=== PATIENT | female | born 1980 | race Caucasian/White ===

== ENCOUNTER 2020-03-04 13:11 | Emergency (ER) | payer MEDICAID, SELFPAY ==
--- NOTE | ~2020-03-04 | XR_ITS ---
EXAMINATION: XR chest 2V EXAM DATE: 03/04/2020 13:52 INDICATION: Syncope, tachycardia, chest heaviness. TECHNIQUE: Frontal and lateral projections of the chest obtained and reviewed. Comparison is made to prior examination from 01/07/2019. FINDINGS: Moderate hyperinflation. The lungs are clear. There are no pleural effusions. The cardio mediastinal silhouette is within normal limits. There is no pneumothorax suspected. The bones and s oft tissues are unremarkable. IMPRESSION: 1. No acute cardiopulmonary findings. 2. Hyperinflation. Reviewed, dictated and finalized at location A.
--- NOTE | ~2020-03-04 | CT_ITS ---
EXAMINATION: CT brain wo con, CT cervical spine wo con EXAM DATE: 03/04/2020 14:36 INDICATION: 2 falls over the past few days. Head injury. TECHNIQUE: Spiral CT of the head was performed without contrast. Axial, coronal and sagittal images were reviewed. Spiral CT of the cervical spine was performed without contrast. Axial images were rev iewed. Coronal and sagittal reformatted images were also reviewed. The dose-length product (DLP) fo r this examination was 605.33 (accession [id number]), 254.07 (accession [id number]) mGy-cm. The exposure was tailored according to patient size, and iterative reconstruction (ASIR) was used as additional dose reduction technique. There is no prior study for comparison. FINDINGS: HEAD CT: There is no acute intraparenchymal hemorrhage. No evidence of intraparenchymal brain mass l esion. No evidence of acute infarction. There is no mass effect or midline shift. There is no obstru ctive hydrocephalus suspected. There are no extra-axial collections. There are no acute calvarial f ractures. The orbits are unremarkable. Soft tissue is unremarkable. Small amount of left maxillary sinus fluid. CERVICAL CT: There is no evidence of acute cervical fracture. The odontoid process is intact. Pre- dens space is normal. Prevertebral soft tissue is normal. There are no soft tissue abnormalities id entified. There is no disc space widening or traumatic vertebral body subluxation suspected. At C5- 6 there is mild disc disease. Only mild cervical arthropathy. A detailed level by level evaluation o f spondylosis can be added as addendum if requested. IMPRESSION: 1. No acute intracranial findings or cervical fracture. Reviewed, dictated and finalized at location A. IMPRESSION: 1. No acute intracranial findings or cervical fracture.
[2020-03-04 13:22] VITALS: BP 132/82; PULSE 90; RESP 16; TEMP 36.8; O2SAT 98
--- NOTE | 2020-03-04 13:27 | ECG_ITS ---
Measurements Intervals [place] Rate: 84 P: 55 MT: 108 QRS: 64 QRSD: 84 T: 64 QT: 372 QTc: 441 Interpretive Statements SINUS RHYTHM WITH SHORT MT INTERVAL INCOMPLETE RIGHT BUNDLE BRANCH BLOCK BORDERLINE ST ABNORMALITY- ANTEROLAT/INF LEADS BORDERLINE ECG Electronically Signed On 03-04-2020 14:02:07 CDT by Byron Navarrete D.O.
--- NOTE | 2020-03-04 13:41 | PC.NURSE ---
PT TO XRAY AT THIS TIME WILL MEDICATE PER PROVIDER ORDER UPON RETURN.
[2020-03-04 13:51] VITALS: BP 119/85; PULSE 84; RESP 18; O2SAT 100
--- NOTE | 2020-03-04 13:51 | PC.NURSE ---
TENISHA AT BEDSIDE.
[2020-03-04 14:00] LABS: Basophils Percent Auto 0.5 % (0.2-1.2); Eosinophils Percent Auto 0.3 % (0-4.4); Hematocrit 39.9 % (37.0-47.0); Hemoglobin 13.7 g/dL (12.0-15.0); Immature Granulocyte Absolute 0.02 K/mm3 (0.00-0.031); Immature Granulocyte Percent A 0.3 % (0-0.5); Lymphocytes Absolute Auto 2.11 K/mm3 (0.9-3.2); Mean Corpuscular HGB Conc 34.3 g/dl (32-36); Mean Corpuscular Hemoglobin 31.8 pg (26-34); Mean Corpuscular Volume 92.6 fl (80-100); Mean Platelet Volume 10.9 fl (7.4-10.4); Monocytes Absolute Auto 0.3 K/mm3 (0.1-0.6); Monocytes Percent Auto 4.8 % (2.6-8.5); Neutrophils Absolute Auto 4.1 K/mm3 (1.3-6.7); Neutrophils Percent Auto 62.1 % (45.5-73.1); Platelet Count Result 213 k/mm3 (150-375); Red Blood Count 4.31 M/mm3 (4.2-5.4); Red Cell Distribution Width 12.2 % (11.5-14.5); White Blood Count 6.6 K/mm3 (4.5-10.0)
--- NOTE | 2020-03-04 14:00 | PC.NURSE ---
PER MICHELLE STEVEN, PT DOES NOT NEED 324 ASA.
[2020-03-04 14:04] LABS: Add Urine Microscopic? YES; Appearance Urine Clear (Clear); Bacteria Urine 1+ /hpf; Bilirubin Urine Negative (Negative); Blood Urine Negative (Negative); Color Urine Straw (Yellow); Glucose Urine UA Negative (Negative); Ketones Urine 1+ mg/dL (Negative); Leukocyte Esterase Ur Negative LEU/UL (Negative); Mucus Urine Rare /lpf; Nitrate Urine Negative (Negative); Protein Urine Negative (Negative); RBC Urine 0-2 /hpf (0-2); Specific Grav Ur 1.009 (1.001-1.035); Squamous Epithelial Cell Urine Moderate /hpf (Few); Urobilinogen Urine Negative mg/dL (<2.0); WBC Urine 0-3 /hpf
[2020-03-04 14:09] LABS: INR 1.1; Prothrombin Time 13.5 Seconds (11.1-14.7)
--- NOTE | 2020-03-04 14:13 | ED.ARRPALP ---
HPI - Arrhythmia/Palpitations General Chief Complaint: Arrhythmia/Palpitations Stated Complaint: heart racing Time Seen by Provider: 03/04/20 13:28 Source: patient Mode of arrival: ambulatory Limitations: no limitations History of Present Illness HPI narrative: Patient is 40 years old white female presents with intermittent bounding heartbeats, lightheadedness and falling since started trazodone 48 hours ago. Patient had history of intermittent bounding heartbeats with palpitations since June 2019, but will see her doctor because of the COVID-19, patient also have long history of insomnia, used trazodone one time in the past, over the last 48 hours she tried again, patient had 2 falls since last one was in the bathroom today struck her head on the wall with neck pain. Patient had history of chronic back pain, neck pain, maxed on her cortisone injection. Currently patient complaining of generalized back pain. Denying any chest pain, shortness of breath or palpitation. History of depression Related Data Home Medications Medication Instructions Recorded Confirmed bupropion HCl mg PO 03/04/20 tramadol mg 03/04/20 03/04/20 Allergies Allergy/AdvReac Type Severity Reaction Status Date / Time codeine Allergy Severe DIFFICULTY Verified 03/04/20 13:25 BREATHING cyclobenzaprine Allergy Severe DIFFICULTY Verified 03/04/20 13:25 BREATHING morphine Allergy Severe BRADYCARDIA Verified 03/04/20 13:25 Sulfa (Sulfonamide Allergy Severe DIFFICULTY Verified 03/04/20 13:25 Antibiotics) BREATHING ciprofloxacin AdvReac Intermediate MUSCLE Verified 03/04/20 13:25 CRAMPS, HALLUCINATIONS HYDROCODONE BIT Allergy Severe RASH Uncoded 12/12/19 08:02 MEPERIDINE HCL Allergy Severe DIFFICULTY Uncoded 12/12/19 08:02 BREATHING Review of Systems Review of Systems: Narrative: CONSTITUTIONAL: Denies fever, chills, or sweats. EYES: Denies visual changes, redness, or discharge. ENT: Denies rhinorrhea, congestion, sore throat, or otalgia. CARDIOVASCULAR: Denies chest pain, palpitations, or edema. RESPIRATORY: Denies cough or dyspnea. GASTROINTESTINAL: Denies abdominal pain, nausea, vomiting, or diarrhea. GENITOURINARY: Denies dysuria or hematuria. SKIN: Denies rash or itching. MUSCULOSKELETAL: Denies back pain, joint pain, or myalgia. NEUROLOGIC: Denies headache, numbness, or weakness. PSYCHIATRIC: Denies anxiety or depression. [facility] Past Medical History Medical History (Updated 03/04/20 @ 15:08 by Edgar Sierra MD) Depression Social History Social History (Updated 03/04/20 @ 15:00 by Edgar Sierra MD) Social History: Patient denies alcohol intake, uses marijuana for medical treatment, and does smoke. Smoking status: Current every day smoker Alcohol intake: current Gender identity (if verbalized by the patient): Female Exam Narrative: Exam Narrative: General appearance: Well-developed, well-nourished Skin: Normal color Head: Normocephalic, nontraumatic Eyes: Clear conjunctiva ENT: Oropharynx normal, ears normal, nose normal Neck: Supple, nontender Chest and respiratory: Airway patent, no respiratory distress, no accessory muscle use Heart: Regular rate/rhythm Abdomen: Soft, nontender, no organomegaly, quiet bowel sounds Vascular: Normal peripheral pulses, normal capillary refill. Musculoskeletal: Diffuse tenderness mainly cervical spine posteriorly, thoracic spine and lumbar spine. No bruises, no swelling or rash. 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
[2020-03-04 14:16] LABS: Anion Gap 11 mmol/L (8-16); Blood Urea Nitrogen 7 mg/dL (7-17); Calcium 9.8 mg/dL (8.4-10.2); Carbon Dioxide 27 mmol/L (22-30); Chloride 106 mmol/L (98-107); Estimated CRCL calculation 112 ml/min; Estimated Glomerular Filt Rate > 60; Glucose 93 mg/dL (65-105); Potassium 3.5 mmol/L (3.4-5.0); Sodium 144 mmol/L (137-145)
[2020-03-04] MEDS: ONDANSETRON INJ 4 MG/2 ML VIAL IV PUSH (14:18)
[2020-03-04] MEDS: HYDROmorphone HCL INJ (*CRX) 1 MG/ML SYR 0.5 MG IV PUSH (14:18)
[2020-03-04 14:28] LABS: Troponin I < 0.012 ng/mL (0.000-0.034)
[2020-03-04 15:22] VITALS: BP 108/51; PULSE 78; RESP 18; O2SAT 100
== END 2020-03-04 15:23 | disposition home or self-care (01) ==
PROVIDERS: Emergency Medicine; Emergency Provider Emergency Medicine; PCP Family Medicine
DX: R00.2 Palpitations (principal); G47.00 Insomnia, unspecified; M54.6 Pain in thoracic spine; F32.9 Major depressive disorder, single episode, unspecified; F17.200 Nicotine dependence, unspecified, uncomplicated; G89.29 Other chronic pain; I45.10 Unspecified right bundle-branch block; R94.31 Abnormal electrocardiogram [ECG] [EKG]
CPT/HCPCS: 36415; 70450; 71046; 72125; 80048; 81001; 84484; 85025; 85610; 85730; 93005; 96374; 96375; 99284; J1170; J2405

== ENCOUNTER 2022-10-16 09:28 | Emergency (ER) | payer MEDICARE, MEDICAID, SELFPAY ==
--- NOTE | ~2022-10-16 | XR_ITS ---
XR knee LT 3V 10/16/2022 10:24 INDICATION: Left knee pain PROCEDURE: 3 views left knee COMPARISON: No prior studies for comparison. FINDINGS: Fracture, dislocation or subluxation is not identified. The soft tissues appear within norm al limits. No foreign bodies are identified. IMPRESSION: 1: NO ACUTE BONE OR JOINT ABNORMALITY IDENTIFIED. Reviewed, dictated and finalized at location B.
--- NOTE | ~2022-10-16 | XR_ITS ---
XR hip LT min 2V 10/16/2022 10:24 Indication: Left hip pain Procedure: 2 views left hip Comparison: No prior studies for comparison. Findings: There is anatomic alignment. No fracture, subluxation or dislocation. No significant soft t issue abnormality. No foreign bodies. Impression: 1: No acute bone or joint abnormality. Reviewed, dictated and finalized at location B. Impression: 1: No acute bone or joint abnormality.
[2022-10-16 09:42] VITALS: BP 108/65; PULSE 64; RESP 18; TEMP 36.8; O2SAT 100
--- NOTE | 2022-10-16 10:01 | ED.EXTPRO ---
HPI - Extremity Problem General Chief complaint: Extremity Problem,Nontraumatic Stated complaint: joint hypermobility Time Seen by Provider: 10/16/22 09:35 History of Present Illness HPI Narrative: Patient is a 42-year-old female here due to multiple medical complaints. Patient states that over the past year she has noticed laxity in her joints. She states that she has chronic popping and clicking in her hips, knees and ankles, noticed particularly when she walks. She has seen her primary care doctor for this issue who has referred her to an orthopedist but at the orthopedist visit he believed it was more of a rheumatologic issue. She has not yet seen a auto parts clerk. She presents today due to concerns about ligamentous injury due to frequent dislocations, particularly in her left knee and hip. She has been able to walk. She has not taken any medicine for pain today. No numbness or tingling. Related Data Home Medications Medication Instructions Recorded Confirmed bupropion HCl 150 mg 24 hr tablet, mg PO 03/04/20 extended release tramadol 50 mg tablet mg 03/04/20 03/04/20 Allergies Allergy/AdvReac Type Severity Reaction Status Date / Time codeine Allergy Severe DIFFICULTY Verified 10/16/22 09:47 BREATHING cyclobenzaprine Allergy Severe DIFFICULTY Verified 10/16/22 09:47 BREATHING morphine Allergy Severe BRADYCARDIA Verified 10/16/22 09:47 Sulfa (Sulfonamide Allergy Severe DIFFICULTY Verified 10/16/22 09:47 Antibiotics) BREATHING ciprofloxacin AdvReac Intermediate MUSCLE Verified 10/16/22 09:47 CRAMPS, HALLUCINATIONS HYDROCODONE BIT Allergy Severe RASH Uncoded 10/16/22 09:47 MEPERIDINE HCL Allergy Severe DIFFICULTY Uncoded 10/16/22 09:47 BREATHING Review of Systems Review of Systems: Gen.: Denies fevers or chills Eyes: Denies eye pain or visual change ENT: Denies congestion Respiratory: Denies shortness of breath or cough CV: Denies chest pain or palpitations GI: Denies abdominal pain nausea, emesis or diarrhea denies burning, urgency, frequency or hematuria Musculoskeletal: Reports ligamentous laxity and chronic joint pain Neuro: Denies numbness, tingling, weakness or focal weakness Skin: Denies rash Except as documented, all other systems reviewed and negative PMFSH Past Medical History Medical History Depression Social History Social History (System 10/21/21 @ 15:47 by Jose Mckinney) Social History: Patient denies alcohol intake, uses marijuana for medical treatment, and does smoke. Smoking status: Current every day smoker Alcohol intake: current Gender identity (if verbalized by the patient): Female Exam Narrative: APPEARANCE: Well appearing, no pain in distress, well-nourished. Head: Normocephalic and atraumatic. EYES: PERRLA/EOMI, conjunctivae clear NOSE: No nasal drainage EARS: External ear normal in appearance THROAT: Oropharynx is clear. Mucous membranes are moist. NECK: Supple. No adenopathy, no masses. RESPIRATORY: Airway patent, respirations nonlabored. Clear to auscultation bilaterally, no rales, rhonchi, wheezing. CARDIOVASCULAR: 2+ DP and PT pulses bilaterally. Regular rate and rhythm without murmurs, rubs, or gallops. ABDOMINAL: Normoactive bowel sounds. Soft, nontender, nondistended. No rebound tenderness or guarding. MUSCULOSKELETAL: There is crepitus with range of motion of the knees and ankles. No bony tenderness to palpation. Extremities are warm and well-perfused. Moves all extremities well. No edema. NEURO: Normal speech. No focal neurologic deficits. SKIN: Skin is warm and dry. No rashes. PSYCHIATRIC: Normal affect/mood. Course Vital Signs Vital signs: Vital Signs Temperature 98.2 F 10/16/22 09:42 Pulse Rate 64 10/16/22 09:42 Respiratory Rate 18 10/16/22 09:42 Blood Pressure 108/65 10/16/22 09:42 Pulse Oximetry 100 10/16/22 09:42 T
[2022-10-16] MEDS: KETOROLAC 30 MG/ML VIAL (*BKC) IM (10:02)
[2022-10-16 10:44] VITALS: BP 109/75; PULSE 57; RESP 18; O2SAT 100
== END 2022-10-16 10:45 | disposition home or self-care (01) ==
LOC: ANHED 10:31
PROVIDERS: Emergency Provider Physician Assistant; PCP Family Medicine
DX: M25.20 Flail joint, unspecified joint (principal); F17.210 Nicotine dependence, cigarettes, uncomplicated; F32.A Depression, unspecified
CPT/HCPCS: 73502; 73562; 96372; 99284; J1885

== ENCOUNTER 2023-05-23 06:42 | Emergency (ER) | payer OTHER, SELFPAY ==
[2023-05-23 06:44] VITALS: BP 133/74; PULSE 98; RESP 16; TEMP 36.6; O2SAT 100
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
[2023-05-23 07:52] LABS: Basophils Percent Auto 0.4 % (0.2-1.2); Eosinophils Absolute Auto 0.2 K/mm3 (0-0.3); Eosinophils Percent Auto 4.8 % (0-4.4); Hematocrit 39.6 % (37.0-47.0); Hemoglobin 12.9 g/dL (12.0-15.0); Immature Granulocyte Absolute 0.01 K/mm3 (0.00-0.031); Immature Granulocyte Percent A 0.2 % (0-0.5); Lymphocytes Absolute Auto 1.76 K/mm3 (0.9-3.2); Lymphocytes Percent Auto 38.1 % (18.3-44.2); Mean Corpuscular HGB Conc 32.6 g/dl (32-36); Mean Corpuscular Hemoglobin 31.2 pg (26-34); Mean Corpuscular Volume 95.9 fl (80-100); Mean Platelet Volume 10.9 fl (7.4-10.4); Monocytes Absolute Auto 0.3 K/mm3 (0.1-0.6); Monocytes Percent Auto 5.6 % (2.6-8.5); Neutrophils Absolute Auto 2.4 K/mm3 (1.3-6.7); Neutrophils Percent Auto 50.9 % (45.5-73.1); Platelet Count Result 165 k/mm3 (150-375); Red Blood Count 4.13 M/mm3 (4.2-5.4); Red Cell Distribution Width 12.7 % (11.5-14.5); White Blood Count 4.6 K/mm3 (4.5-10.0)
[2023-05-23] MEDS: LACTATED RINGERS 1,000 ML 999 ML (07:59)
[2023-05-23 08:08] LABS: Alanine Aminotransferase 15 U/L (6-35); Albumin Level 4.5 g/dL (3.5-5.1); Alkaline Phosphatase 54 U/L (38-126); Anion Gap 7 mmol/L (8-16); Aspartate Amino Transferase 22 U/L (14-36); Bilirubin,Total 0.4 mg/dL (0.2-1.3); Blood Urea Nitrogen 8 mg/dL (7-17); Calcium 9.3 mg/dL (8.4-10.2); Carbon Dioxide 25 mmol/L (22-30); Chloride 110 mmol/L (98-107); Estimated CRCL calculation 108 ml/min; Estimated Glomerular Filt Rate > 60; Glucose 94 mg/dL (65-110); Lipase 81 U/L (23-300); Potassium 3.6 mmol/L (3.4-5.0); Sodium 142 mmol/L (137-145)
[2023-05-23] MEDS: HALOPERIDOL LACTATE 5 MG/ML VIAL 2.5 MG IV PUSH (09:00)
[2023-05-23 09:45] VITALS: BP 116/72; PULSE 79; RESP 16; O2SAT 100
== END 2023-05-23 09:45 | disposition home or self-care (01) ==
PROVIDERS: Emergency Provider Student in an Organized Health Care Education/Training Program; PCP Family Medicine
DX: H57.12 Ocular pain, left eye (principal); Q79.60 Ehlers-Danlos syndrome, unspecified; K31.84 Gastroparesis; F32.A Depression, unspecified; F17.200 Nicotine dependence, unspecified, uncomplicated
CPT/HCPCS: 36415; 80053; 81025; 83690; 85025; 96361; 96374; 99284; J1630; J7120

== ENCOUNTER 2024-02-03 11:02 | Emergency (ER) | payer MEDICARE, OTHER, SELFPAY ==
[2024-02-03 11:05] VITALS: BP 180/93; PULSE 91; RESP 20; TEMP 36.7; O2SAT 99
--- NOTE | 2024-02-03 11:18 | PC.NURSE ---
[address] activated [address] through [facility] 1112 Activated [address] [facility]. [address], [place] - en route to [place] [facility] 30-40 minutes
--- NOTE | 2024-02-03 13:01 | PC.NURSE ---
Assumed care of pt. [facility] nurses remain in room with pt
[2024-02-03] MEDS: ONDANSETRON HCL ODT 4 MG TABLET PO (14:18)
[2024-02-03] MEDS: OXYMETAZOLINE HCL 0.05% NAS 15 ML BTL (*BKC) 1 SPRAY NASAL (14:20)
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
[2024-02-03] MEDS: EMTRICITABINE-TENOFOVIR 100 MG-150 MG TABLET 2 TAB PO (17:04)
[2024-02-03] MEDS: RALTEGRAVIR 400 MG TABLET PO (17:05)
[2024-02-03] MEDS: HEPATITIS B VIRUS VACCINE 10 MCG/0.5 ML SYRINGE 20 MCG IM (17:05)
[2024-02-03 17:12] LABS: Alanine Aminotransferase 31 U/L (6-35); Alkaline Phosphatase 57 U/L (38-126); Anion Gap 8 mmol/L (4-12); Aspartate Amino Transferase 33 U/L (14-36); Bilirubin,Total 0.3 mg/dL (0.2-1.3); Blood Urea Nitrogen 7 mg/dL (7-17); Calcium 8.9 mg/dL (8.4-10.2); Carbon Dioxide 24 mmol/L (22-30); Chloride 107 mmol/L (98-107); Estimated CRCL calculation 128 ml/min; Estimated Glomerular Filt Rate > 60; Glucose 107 mg/dL (65-110); Potassium 3.7 mmol/L (3.4-5.0); Sodium 139 mmol/L (137-145)
[2024-02-03 17:52] LABS: HIV 1/2 Ab P24 Ag Result Negative (Negative)
[2024-02-03] MEDS: LIDO 1%/EPINEPHRINE 1:100,000 20 ML VIAL (18:08)
[2024-02-03] MEDS: DOXYCYCLINE HYCLATE 100 MG TABLET PO (18:08)
[2024-02-03] MEDS: TETANUS,DIPHTHERIA,AC PERTUSSIS ADULT (0.5 ML) BOOSTRIX IM (18:08)
[2024-02-03] MEDS: cefTRIAXone 1 GM VIAL 0.5 GM IM (18:08)
[2024-02-03] MEDS: metroNIDAZOLE 500 MG TABLET PO (18:08)
[2024-02-03 18:10] LABS: Hepatitis B Surface Antigen Negative (Negative)
[2024-02-03 18:14] VITALS: BP 118/61; PULSE 89; RESP 18; TEMP 36.6; O2SAT 100
[2024-02-03 18:16] LABS: HAV RESULT Negative (Negative); Hepatitis B Core IgM Result Negative (Negative)
[2024-02-03 18:27] LABS: Hepatitis C Virus Antibody Negative (Negative)
[2024-02-03 18:55] LABS: Rapid Plasma Reagin Non-Reactive (NonReactive)
[2024-02-03 19:27] LABS: Trichomonas Vag PCR NOT DETECTED (NOT DETECTE)
[2024-02-03 19:54] LABS: Chlamydia trachomatis NOT DETECTED (NOT DETECTE); Neisseria gonorrhoeae PCR NOT DETECTED (NOT DETECTE)
[2024-02-06 16:08] LABS: HIV 1 RNA PCR NOT DETECTED (NOT DETECTED); HIV 1 RNA PCR NOT DETECTED copies/mL (NOT DETECTED)
== END 2024-02-03 18:43 | disposition home or self-care (01) ==
PROVIDERS: Emergency Provider Emergency Medicine; PCP Family Medicine
DX: T74.21XA Adult sexual abuse, confirmed, initial encounter (principal); F32.A Depression, unspecified; Q79.60 Ehlers-Danlos syndrome, unspecified; Z23 Encounter for immunization
CPT/HCPCS: 36415; 80053; 80074; 86592; 86703; 87491; 87536; 87591; 87661; 90471; 90715; 90744; 96372; 99285; A9270; G0010; G0432; J0696

== ENCOUNTER 2024-09-04 10:38 | Emergency (ER) | payer MEDICARE, SELFPAY ==
[2024-09-04 10:54] VITALS: BP 116/84; PULSE 65; RESP 16; TEMP 36.6; O2SAT 100
--- NOTE | 2024-09-04 11:17 | ED.LOWEXIN ---
HPI - Extremity Injury (Lower) General Chief Complaint: Extremity Injury, Lower Stated Complaint: Fall Injury/Both Leg Time Seen by Provider: 09/04/24 11:17 Source: patient, RN notes reviewed and old records reviewed Mode of arrival: ambulatory Limitations: no limitations History of Present Illness HPI Narrative: 44-year-old female presents to the [facility] with contusions to the mid bilateral lower legs, browne areas. Small bruise noted to the just the right anterior browne mid. Larger bruise noted to the left anterior lateral area. Walks with a normal gait. No treatment prior to arrival room Patient with a history of Martha-Danlos syndrome. Onset (ago): day(s) (1) Related Data Home Medications ?Medication ?Instructions ?Recorded ?Confirmed ?Last Taken ?Type albuterol sulfate 90 mcg/actuation inhalation 09/04/24 Unknown History aerosol inhaler alprazolam 1 mg tablet mg 09/04/24 Unknown History buspirone 15 mg tablet mg 09/04/24 Unknown History duloxetine 60 mg capsule,delayed mg PO 09/04/24 Unknown History release gabapentin 300 mg capsule mg 09/04/24 Unknown History pantoprazole 40 mg tablet,delayed mg PO 09/04/24 Unknown History release tramadol 50 mg tablet mg 09/04/24 Unknown History Allergies Allergy/AdvReac Type Severity Reaction Status Date / Time codeine Allergy Severe DIFFICULTY Verified 09/04/24 10:40 BREATHING cyclobenzaprine Allergy Severe DIFFICULTY Verified 09/04/24 10:40 BREATHING hydrocodone Allergy Severe Rash Verified 09/04/24 10:40 meperidine Allergy Severe Difficulty Verified 09/04/24 10:40 Breathing morphine Allergy Severe BRADYCARDIA Verified 09/04/24 10:40 Sulfa (Sulfonamide Allergy Severe DIFFICULTY Verified 09/04/24 10:40 Antibiotics) BREATHING carisoprodol (From Soma) Allergy Unknown Verified 09/04/24 10:40 methadone Allergy Unknown Verified 09/04/24 10:40 nitrofurantoin (From Allergy Unknown Verified 09/04/24 10:40 Macrobid) Quinolones Allergy Unknown Verified 09/04/24 10:40 sulfamethoxazole (From Allergy Unknown Verified 09/04/24 10:40 Septra) trimethoprim Allergy Unknown Verified 09/04/24 10:40 ciprofloxacin AdvReac Intermediate MUSCLE Verified 09/04/24 10:40 CRAMPS, HALLUCINATIONS Review of Systems Review of Systems: All systems reviewed & are unremarkable except as noted in HPI and below Constitutional: Constitutional: Reports no additional constitutional complaints ENT: Reports system reviewed and no additional complaints, except as documented Cardiovascular: Cardiovascular: Reports no additional cardiovascular complaints, Denies chest pain and Denies dyspnea Respiratory: Respiratory: Reports no additional respiratory complaints, Denies chest congestion, Denies cough and Denies dyspnea Musculoskeletal: Musculoskeletal: Reports as per HPI Integumentary/Breasts: Skin/Breast: Reports system reviewed and no additional complaints, except as docu PMFSH Past Medical History Medical History Martha-Danlos syndrome Depression Surgical History Surgical History History of augmentation of both breasts Social History Social History Social History: Patient denies alcohol intake, uses marijuana for medical treatment, and does smoke. Daughter works at [employer] Smoking status: Current every day smoker Alcohol intake: current Gender identity (if verbalized by the patient): Female Comments At the time of my signature, I reviewed and agree with the nursing past medical, surgical, social, and family history. There is no relevant family history pertinent to the patient complaint. Exam Const: General: cooperative, healthy appearing, comfortable, no acute distress, well developed, alert and well nourished Nutritional Appearance: well nourished Orientation/consciousness: patient oriented x3 Limitations: no limitations HENMT: Head: normal to inspection Eyes: General: appearance normal, both eyes and all related structures Alignment and Position: alignment normal Neck: Neck: normal visual inspection, full ROM, no lymphadenopathy and no meningeal signs Chest: Chest palpation & inspection: normal inspection of the chest Resp: Effort & Inspection: normal respiratory effort and able to speak in complete sentences Cardio: Rate: regular rate Back/Spine/Pelvis: Back: no CVA tenderness and No back tenderness Skin: General skin exam: normal color and no rashes or lesions noted Full body images:  1. Small contusion, tenderness 2. Contusion, tenderness, mild swelling Neuro: General: patient oriented x3, gait normal, moves all extremities and no meningeal signs Cognition (Neuro): normal cognition Speech: normal speech Gait exam (Neuro): Normal gait present Extrem: General: normal to inspection, full ROM, capillary refill normal and normal gait Psych: Appearance: grossly normal and well kempt Mental Status: mental status grossly normal Speech and movement: Normal speech and movement present and Clear speech present Affect: normal affect Attitude: cooperative Course Course Level of Care: Express Care Visit Vital Signs Vital signs: Vital Signs Temperature 97.9 F 09/04/24 10:54 Pulse Rate 65 09/04/24 10:54 Respiratory Rate 16 09/04/24 10:54 Blood Pressure 116/84 09/04/24 10:54 Pulse Oximetry 100 09/04/24 10:54 Oxygen Delivery Room Air 09/04/24 10:54 Temperature 97.9 F 09/04/24 10:54 Pulse Rate 65 09/04/24 10:54 Respiratory Rate 16 09/04/24 10:54 Blood Pressure 116/84 09/04/24 10:54 Pulse Oximetry 100 09/04/24 10:54 Oxygen Delivery Room Air 09/04/24 10:54 Reviewed MDM - Extremity Injury (Lower) MDM Narrative Medical decision making narrative: Patient sitting comfortably in exam room. Nontoxic, vitals stable. Patient is in no acute distress. Patient presents with bruising to bilateral legs post fall yesterday. Patient walking with a normal gait. Offered x-rays, patient declined states she does not feel like there broken but wanted to make sure things were just okay. Patient appropriate for outpatient treatment with close follow-up Discharge instructions reviewed with patient, as well as provided in writing per nursing staff. The instructions also include specific and strict return/GO TO THE ER as well as f/u information. All questions have been answered, and the patient deny any further questions with discharge and discharge plan. Some parts of this dictation were generated by voice recognition software and may contain typographical and/or grammatical inaccuracies. Differential Diagnosis Differential diagnosis: Likely other (Contusion) Critical Care Time Critical Care Time Critical Care Time: No Discharge Plan Discharge Clinical Impression: Contusion of left lower leg, initial encounter Contusion of lower leg, right Qualifiers: Encounter type: initial encounter Qualified Code(s): S80.11XA - Contusion of right lower leg, initial encounter Patient Disposition: Home, Self-Care Condition: Stable Instructions: Antibiotic Form, Contusion in Adults (ED) Additional Instructions: Rest, ice and elevate every 2-3 hours for 15-20 minutes while awake. Follow-up with primary care provider For worsening symptoms go directly to the emergency room Patient Language: Tamazight Prescriptions: No Action alprazolam 1 mg tablet pantoprazole 40 mg tablet,delayed release (DR/EC) PO gabapentin 300 mg capsule albuterol sulfate 90 mcg/actuation HFA aerosol inhaler INHALATION buspirone 15 mg tablet duloxetine 60 mg capsule,delayed release(DR/EC) PO tramadol 50 mg tablet omeprazole magnesium [Prilosec OTC] 20 mg tablet,delayed release (DR/EC) 20 mg PO BID Qty: 60 0RF Follow-up/Referrals: Harms,Bertram Sarah M.D. [Primary Care Provider] - 1 Week Time of Disposition: 11:43
--- OUTSIDE RECORDS SUMMARY | 2024-09-04 11:27 | XMS_ITS | Encounter Summary ---
Author Organization [facility] Address [address] [place] [address] Care Team Providers Care Ems Educator Name Role Phone [facility], External Provider Primary Care Provider Un available Encounter Details Date Type Department Care Team (Late st Contact Info) Description 08/23/2004 Outpatient Historical [facility] Internal Medicine [address] [phone] Daniel Vasquez MD [address] [place] [phone] Social History Tobacco Use Types Packs/Day Years Used Date Smoking Tobacco: Never Assessed Comments Unknown Sex and Gender Information Value Date Recorded Sex Assigned at Not on file Legal Sex Female 4:57 AM JEWELRY APPRAISER Gender Identity Not on file Sexual Orientation Not on file documented as of this encounter Last Filed Vital Signs Vital Sign Reading Time Taken Comments Blood Pressure 120/70 08/23/2004 10:45 AM JEWELRY APPRAISER Pulse - - Temperature 36.7 C (98.1 F) 08/23/2004 10:45 AM JEWELRY APPRAISER Respiratory Rate - - Oxygen Saturation - - Inhaled Oxygen Concentration - - Weight 86.2 kg (190 lb) 08/23/2004 10:45 AM JEWELRY APPRAISER Height - - Body Mass Index - - documented in this encounter Plan of Treatment Not on file documented as of this encounter Visit Diagnoses Not on filedocumented in this encounter Care Teams Ems Educator Relationship Specialty Start Date End Date [facility], External Provider [address] [place] [address] PCP - General 10/22/11 documented as of this encounter
--- OUTSIDE RECORDS SUMMARY | 2024-09-04 11:27 | XMS_ITS | Encounter Summary ---
Author Organization [facility] Address [address] [place] [address] Care Team Providers Care Delivery Crew Worker Name Role Phone [facility], External Provider Primary Care Provider Un available Encounter Details Date Type Department Care Team (Late st Contact Info) Description 11/27/2005 Orders Only [facility] Internal Medicine [address] [phone] Daniel Vasquez MD [address] [place] [phone] Social History Tobacco Use Types Packs/Day Years Used Date Smoking Tobacco: Never Assessed Comments Unknown Sex and Gender Information Value Date Recorded Sex Assigned at Not on file Legal Sex Female 4:57 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 BARRIE PHONE NUMBER: [phone] WHO CALLED: Patient called. CURRENT ALLERGY LIST: CIPRO CODEINE DEMEROL [facility]ARM[facility] NUMBER: [phone] PROBLEMS: back went out again over the weekend---she has a wedding this weekend and needs it to getbetter SECTION 1: REQUESTED ACTION [email or web address] 11/27/05 at 10:52 am: MEDICATION REQUEST: would like anti imflammatory ---cant get in for her injection DOCTOR`S RESPONSE: aixa 11/27/05 at 10:58 am MEDICATIONS: Call in to Pharmacy IBUPROFEN ORAL TABLET 800 MG, 1 Two Times A Day, 60 Dispensed, status: NEW PRESCRIPTION, 11/27/2005. FINAL ACTION: [email or web address] 11/27/05 at 11:19 am Called pharmacy at 11/27/05 at 11:19 am. Electronically Signed by: Lakisha Mckenzie on Sunday, November 27, 2005 documented in this encounter Plan of Treatment Not on file documented as of this encounter Visit Diagnoses Not on filedocumented in this encounter Care Teams Delivery Crew Worker Relationship Specialty Start Date End Date [facility], External Provider [address] [place] [address] PCP - General 10/22/11 documented as of this encounter
--- OUTSIDE RECORDS SUMMARY | 2024-09-04 11:27 | XMS_ITS | Encounter Summary ---
Author Organization [facility] Address [address] [place] [address] Care Team Providers Care Clerk To Justice Name Role Phone [facility], External Provider Primary Care Provider Un available Encounter Details Date Type Department Care Team (Late st Contact Info) Description 01/08/2006 Outpatient Historical [facility] Internal Medicine [address] [phone] Daniel Vasquez MD [address] [place] [phone] Social History Tobacco Use Types Packs/Day Years Used Date Smoking Tobacco: Never Assessed Comments Unknown Sex and Gender Information Value Date Recorded Sex Assigned at Not on file Legal Sex Female 4:57 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 MECHANICAL Gender Identity Not on file Sexual Orientation Not on file documented as of this encounter Last Filed Vital Signs Vital Sign Reading Time Taken Comments Blood Pressure 110/70 01/08/2006 1:30 PM CDT Pulse - - Temperature 36.3 C (97.34 F) 01/08/2006 1:30 PM CDT Respiratory Rate - - Oxygen Saturation - - Inhaled Oxygen Concentration - - Weight 81.6 kg (180 lb) 01/08/2006 1:30 PM CDT Height - - Body Mass Index - - documented in this encounter Plan of Treatment Not on file documented as of this encounter Visit Diagnoses Not on filedocumented in this encounter Care Teams Clerk To Justice Relationship Specialty Start Date End Date [facility], External Provider [address] [place] [address] PCP - General 10/22/11 documented as of this encounter
--- OUTSIDE RECORDS SUMMARY | 2024-09-04 11:27 | XMS_ITS | Encounter Summary ---
Author Organization [facility] Address [address] [place] [address] Care Team Providers Care Import Clerk Name Role Phone Luis, External Provider Primary Care Provider Un available Encounter Details Date Type Department Care Team ([facility] Contact Info) Description 03/31/2004 Outpatient Historical [facility] Internal Medicine [address] [phone] Daniel Vasquez MD [address] [place] [phone] Social History Tobacco Use Types Packs/Day Years Used Date Smoking Tobacco: Never Assessed Comments Unknown Sex and Gender Information Value Date Recorded Sex Assigned at Not on file Legal Sex Female 4:57 AM MEDICAL SURGICAL TECH Gender Identity Not on file Sexual Orientation Not on file documented as of this encounter Last Filed Vital Signs Vital Sign Reading Time Taken Comments Blood Pressure 112/60 03/31/2004 2:30 PM CDT Pulse - - Temperature - - Respiratory Rate - - Oxygen Saturation - - Inhaled Oxygen Concentration - - Weight 87.1 kg (192 lb) 03/31/2004 2:30 PM CDT Height - - Body Mass Index - - documented in this encounter Plan of Treatment Not on file documented as of this encounter Visit Diagnoses Not on filedocumented in this encounter Care Teams Import Clerk Relationship Specialty Start Date End Date Luis, External Provider [address] [place] [address] PCP - General 10/22/11 documented as of this encounter
--- OUTSIDE RECORDS SUMMARY | 2024-09-04 11:27 | XMS_ITS | Encounter Summary ---
Author Organization [facility] Address [address] [place] [address] Care Team Providers Care Continuous Mining Machine Company Miner Name Role Phone Luis, External Provider Primary Care Provider Un available Encounter Details Date Type Department Care Team (Late st Contact Info) Description 08/04/2003 Outpatient Historical [facility] Internal Medicine [address] [phone] Daniel Vasquez MD [address] [place] [phone] Social History Tobacco Use Types Packs/Day Years Used Date Smoking Tobacco: Never Assessed Comments Unknown Sex and Gender Information Value Date Recorded Sex Assigned at Not on file Legal Sex Female 4:57 AM PARTY PLAN DEALER Gender Identity Not on file Sexual Orientation Not on file documented as of this encounter Plan of Treatment Not on file documented as of this encounter Visit Diagnoses Not on filedocumented in this encounter Care Teams Continuous Mining Machine Company Miner Relationship Specialty Start Date End Date Luis, External Provider [address] [place] [address] PCP - General 10/22/11 documented as of this encounter
--- OUTSIDE RECORDS SUMMARY | 2024-09-04 11:27 | XMS_ITS | Clinical Summary ---
Author Organization [facility] Address [address] [place] [address] Phone Care Team Providers Care Supervisor Aircraft Maintenance Name Role Phone Bertram Martinez MD Primary Care Provider [phone] Allergies Active Allergy Reactions Criticality Noted Date Comments Ciprofloxacin Anaphylaxis 09/10/2018 Codeine Anaphylaxis 09/10/2018 Cyclobenzaprine Anaphylaxis 09/10/2018 Hydrocodone-Acetaminophen Anaphylaxis 9 Nitrofurantoin Anaphylaxis 06/12/2020 Meperidine Anaphylaxis 09/10/2018 Morphine Anaphylaxis 09/10/2018 Sulfamethoxazole-Trimethoprim Anaphylaxis 06/12 Sulfa Antibiotics Anaphylaxis 09/10/2018 Medications ALPRAZolam (XANAX) 0.5 MG Tablet Take 0.5 mg by mouth. 12/21/2017 Active buPROPion (WELLBUTRIN) 150 MG XL tablet 4 08/23/2018 Active traMADol (ULTRAM) 50 MG Tablet TK 1 T PO Q 6 H PRN P 0 07/23/2018 Active triamcinolone (ARISTOCORT) 0.5 % Cream 0.5 %. 05/23/2016 Active valACYclovir (VALTREX) 1 GM Tablet Take 2 Tabs by mouth. 07/27/2017 Active methocarbamol (ROBAXIN) 500 MG Tablet 0 09/19/2018 Active JUNEL FE 06/23 1-20 MG-MCG Tablet TAKE 1 TABLET BY MOUTH DAILY 28 Tab 12/17/2018 Active oxyCODONE-acetam inophen (PERCOCET) 5-325 MG Tablet Take 1 Tab by mouth every 6 hours as needed for Severe pain. 10 Tab 06/12/2020 Active Active Problems No known active problems Family History Medical History Relation Name Comments Bleeding Disorder Brother Relation Name Status Comments Brother Social History Tobacco Use Types Packs/Day Years Used Date Smoking Tobacco: Former Smokeless Tobacco: Never Alcohol Use Standard Drinks/Week Comments Not Currently 0 (1 standard drink = 0.6 oz pur e alcohol) Sexually Active Control Partners Comments Not Currently Comments No Sex and Gender Information Value Date Recorded Sex Assigned at Not on file Legal Sex Female 8:47 PM CDT Gender Identity Not on file Sexual Orientation Not on file Last Filed Vital Signs Vital Sign Reading Time Taken Comments Blood Pressure 98/73 06/12/2020 12:01 PM LITHOGRAPHIC PLATE MAKER APPRENTICE Pulse 79 06/12/2020 12:01 PM LITHOGRAPHIC PLATE MAKER APPRENTICE Temperature 36.2 C (97.2 F) 06/12/2020 10:58 AM LITHOGRAPHIC PLATE MAKER APPRENTICE Respiratory Rate 18 06/12/2020 12:01 PM LITHOGRAPHIC PLATE MAKER APPRENTICE Oxygen Saturation 100% 06/12/2020 12:01 PM LITHOGRAPHIC PLATE MAKER APPRENTICE Inhaled Oxygen Concentration - - Weight 68 kg (150 lb) 06/12/2020 10:58 AM LITHOGRAPHIC PLATE MAKER APPRENTICE Height 175.3 cm (5' 9 ) 06/12/2020 10:58 AM LITHOGRAPHIC PLATE MAKER APPRENTICE Body Mass Index 22.15 06/12/2020 10:58 AM LITHOGRAPHIC PLATE MAKER APPRENTICE Plan of Treatment Health Maintenance Due Date Last Done Comments Hepatitis C Virus (HCV) Screening 1981 TdaP Immunization 1981 Hepatitis B Immunization (1 of 3 - 19+ 3-dose series) 02/10/2000 Influenza Immunization (#1) 02/03/202403/05, 03/20/2018, 05/04/2015, Additional history exists SARS-COV-2 Immunization (2023- season) 2024 Respiratory Syncytial Virus (RSV) Immunization (Adult) (1 - 1-dose 75+ series) 02/10/2056 Discussion re Starting/Frequency of Mammograms Discontinued 12/30/2018, 12/25/2018 Meningococcal Immunization (ACWY) Aged Out No longer eligible based on patient's age to complete this topic Pneumococcal Immunization Combined Aged Out No longer eligible based on patient's age to complete this topic Rotavirus Immunization Aged Out No lo nger eligible based on patient's age to complete this topic Procedures Procedure Name Priority Date/Time Associated Diagnosis Comments LIANE DIAG RIGHT UNILATERAL DIGITAL W CAD W ADRIAN Routine 12/30/2018 Abnormal mammogram of right breast from Last 3 Months or Most Recently Relevant to Health Maintenance Results * LIANE DIAG RIGHT UNILATERAL DIGITAL W CAD W ADRIAN (12/30/2018) Anatomical Region Laterality Modality breast Right Mammography Guille Schwartz MD IMG MAMMO ORDERABLES Final Res ult from Last 3 Months or Most Recently Relevant to Health Maintenance Insurance MEDICAID [place] Care Teams Supervisor Aircraft Maintenance Relationship Specialty Start Date End Date [place] [address] PCP - General Internal Medicine 09/09/18
--- OUTSIDE RECORDS SUMMARY | 2024-09-04 11:27 | XMS_ITS | Encounter Summary ---
Author Organization [facility] Address [address] [place] [address] Care Team Providers Care Print Line Supervisor Name Role Phone Luis, External Provider Primary Care Provider Un available Encounter Details Date Type Department Care Team ([facility] Contact Info) Description 09/30/2003 Outpatient Historical [facility] Internal Medicine [address] [phone] Daniel Vasquez MD [address] [place] [phone] Social History Tobacco Use Types Packs/Day Years Used Date Smoking Tobacco: Never Assessed Comments Unknown Sex and Gender Information Value Date Recorded Sex Assigned at Not on file 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 Sex Female 4:57 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 Gender Identity Not on file Sexual Orientation Not on file documented as of this encounter Last Filed Vital Signs Vital Sign Reading Time Taken Comments Blood Pressure 118/70 09/30/2003 3:00 PM CDT Pulse - - Temperature - - Respiratory Rate - - Oxygen Saturation - - Inhaled Oxygen Concentration - - Weight 95.3 kg (210 lb) 09/30/2003 3:00 PM CDT Height - - Body Mass Index - - documented in this encounter Plan of Treatment Not on file documented as of this encounter Visit Diagnoses Not on filedocumented in this encounter Care Teams Print Line Supervisor Relationship Specialty Start Date End Date Luis, External Provider [address] [place] [address] PCP - General 10/22/11 documented as of this encounter
--- OUTSIDE RECORDS SUMMARY | 2024-09-04 11:27 | XMS_ITS | Encounter Summary ---
Author Organization [facility] Address [address] [place] [address] Care Team Providers Care Feltmaker And Weigher Name Role Phone Luis, External Provider Primary Care Provider Un available Encounter Details Date Type Department Care Team (Late st Contact Info) Description 08/04/2003 Outpatient Historical [facility] Internal Medicine [address] [phone] Daniel Vasquez MD [address] [place] [phone] Social History Tobacco Use Types Packs/Day Years Used Date Smoking Tobacco: Never Assessed Comments Unknown Sex and Gender Information Value Date Recorded Sex Assigned at Not on file Legal Sex Female 4:57 AM RN TELEMETRY Gender Identity Not on file Sexual Orientation Not on file documented as of this encounter Plan of Treatment Not on file documented as of this encounter Visit Diagnoses Not on filedocumented in this encounter Care Teams Feltmaker And Weigher Relationship Specialty Start Date End Date Luis, External Provider [address] [place] [address] PCP - General 10/22/11 documented as of this encounter
--- OUTSIDE RECORDS SUMMARY | 2024-09-04 11:27 | XMS_ITS | Encounter Summary ---
Author Organization [facility] Address [address] [place] [address] Care Team Providers Care Egg Packer Name Role Phone Luis, External Provider Primary Care Provider Un available Encounter Details Date Type Department Care Team (Late st Contact Info) Description 12/14/2003 Outpatient Historical [facility] Internal Medicine [address] [phone] Daniel Vasquez MD [address] [place] [phone] Social History Tobacco Use Types Packs/Day Years Used Date Smoking Tobacco: Never Assessed Comments Unknown Sex and Gender Information Value Date Recorded Sex Assigned at Not on file Legal Sex Female 4:57 AM LEGAL WORD PROCESSOR Gender Identity Not on file Sexual Orientation Not on file documented as of this encounter Plan of Treatment Not on file documented as of this encounter Visit Diagnoses Not on filedocumented in this encounter Care Teams Egg Packer Relationship Specialty Start Date End Date Luis, External Provider [address] [place] [address] PCP - General 10/22/11 documented as of this encounter
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
--- OUTSIDE RECORDS SUMMARY | 2024-09-04 11:27 | XMS_ITS | Referral Summary ---
Author Organization [facility] [address] [facility] Address [address] [place] [address] Care Team Providers Care Edge Glue Machine Tender Name Role Phone Bertram Martinez MD Primary Care Provider [phone] Encounters Date Type Department Care Team Description 07/23/2024 1:45 PM CHIEF ENGINEER DRILLING AND RECOVERY Office Visit [facility] [address] [place] [address] Bertram Martinez MD Screening mammogram for breast cancer (Primary Dx); Need for influenza vaccination; Need for pneumococcal 20-valent conjugate vaccination; Regurgitation of food; Dysphagia, unspecified type; Rectocele; 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; 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 Allergies Active Allergy Reactions Criticality Noted Date [...] instructed as needed for anaphylaxis [address] (VOLTAREN) 75 mg EC tablet Take 1 tablet (75 mg total) by mouth 2 (two) times a day 60 tablet 11 024 2024 Active busPIRone (BUSPAR) 15 mg tablet TAKE 1 TABLET BY MOUTH THREE TIMES DAILY 90 tablet [address] (CYMBALTA) 60 mg capsule TAKE 1 CAPSULE BY MOUTH DAILY 90 capsule Active bisacodyl EC (DULCOLAX EC) 5 mg [...] MOUTH THREE TIMES DAILY 90 capsule 1 025 Active ALPRAZolam (XANAX) 1 mg tablet Take [...] 08/03/2024 Assessment & Plan (08/03/2024 8:31 AM CHIEF ENGINEER DRILLING AND RECOVERY): Breat cancer screenign and will montior erpsonse. Need for influenza vaccination 08/03/2024 Assessment & Plan (08/03/2024 8:31 AM CHIEF ENGINEER DRILLING AND RECOVERY): Udpated. Need for pneumococcal 20-valent conjugate vaccin ation 08/03/2024 Assessment & Plan (08/03/2024 8:32 AM CHIEF ENGINEER DRILLING AND RECOVERY): updated Regurgitation of food 08/03/2024 Assessment & Plan (08/03/2024 8:32 AM CHIEF ENGINEER DRILLING AND RECOVERY): As above. Referral to GI for evaluatoin. Rectocele 08/03/2024 Assessment & Plan (08/03/2024 8:32 AM CHIEF ENGINEER DRILLING AND RECOVERY): As above. Chronic instability of metac arpophalangeal joint of left thumb 08/03/2024 Assessment & Plan (08/03/2024 8:32 AM CHIEF ENGINEER DRILLING AND RECOVERY): Referral to hand surgery. Sig laxity noted and discomfort and will follow response. 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 Myogenic ptosis of bilateral eyelids 06/30/2023 Assessment & Plan (08/25/2023 9:11 AM CDT): Marked improvement following reduced impact from previous neurotoxin treatment. She demonstrates good MRD1 without ptosis. We have discussed these findings and have elected to defer upper eyelid surgery. She will return as needed. Assessment & Plan (06/30/2023 11:06 PM CHIEF ENGINEER DRILLING AND RECOVERY): Mild ptosis of both eyes. Recent Botox [...] 03/21/2021 Assessment & Plan (08/03/2024 8:31 AM CHIEF ENGINEER DRILLING AND RECOVERY): Referral to EGD. Aware of complexity with [...] PM CDT): Surgery scheduled for 12/31/18 at [facility] w/Dr Balta Peres for: breast augmentation, abdominoplasty & liposuction. Mrs Giles states that EKG & labs completed at [facility] yesterday. Office has called to get [...] distal vein of both lower extremities 06/14/2021 4 Immunizations Immunization Administration Dates Next Due Hep [...] PPV23 08/04/2003 Td, adsorbed 12/14/2003 Tdap 02/03/2024 Social History Tobacco Use Types Packs/Day Years [...] week 11/06/2022 How often do you attend [facility] or mu-ism services? More than 4 times per year 11/06/2022 Do you belong to any clubs o r organizations such as sabianist groups, unions, fraternal or athletic groups, or [...] staff should administer the PHQ-9) 0 01/21/2024 [facility] - Occupational Stress [...] place to sleep or slept in a custodial (including now)? No 11/06/2022 Comments No Sex and Gender Information Value Date Recorded Sex Assigned at Not on file Legal Sex Female 12:52 AM CHIEF ENGINEER DRILLING AND RECOVERY Gender Identity Not on file Sexual Orientation Not on file Last Filed Vital Signs Vital Sign Reading Time Taken Comments Blood Pressure 126/80 07/23/2024 1:42 PM CHIEF ENGINEER DRILLING AND RECOVERY Pulse 64 07/23/2024 1:42 PM CHIEF ENGINEER DRILLING AND RECOVERY Temperature 36.4 C (97.6 F) 07/23/2024 1:42 PM CHIEF ENGINEER DRILLING AND RECOVERY Respiratory Rate 20 07/23/2024 1:42 PM CHIEF ENGINEER DRILLING AND RECOVERY Oxygen Saturation 99% 07/23/2024 1:42 PM CHIEF ENGINEER DRILLING AND RECOVERY Inhaled Oxygen Concentration - - Weight 66.2 kg (146 lb) 07/23/2024 1:42 PM CHIEF ENGINEER DRILLING AND RECOVERY Height 174.5 cm (5' 8.7 ) 07/23/2024 1:42 PM CHIEF ENGINEER DRILLING AND RECOVERY Body Mass Index 21.75 07/23/2024 1:42 PM CHIEF ENGINEER DRILLING AND RECOVERY Plan of Treatment Not on file Procedures Procedure Name Priority Date/Time Associated Diagnosis Comments HEPATITIS PANEL, ACUTE Routine 04/16/2024 3:00 PM CHIEF ENGINEER DRILLING AND RECOVERY Screening examination for STI DIAGNOSTIC MAMMOGRAM BILATERAL W ALFREDO W IMPLANTS Schedule Routine, Read Routine (OP Routine) 01/11/2023 2:11 PM CDT Abnormal mammogram from Last 3 Months or Most Recently Relevant to Health Maintenance Results * Hepatitis panel, acute Blood (04/16/2024 3:00 PM CHIEF ENGINEER DRILLING AND RECOVERY) Hep A IgM Nonreactive Nonreactive Comment: Interpretive Data: If Hep A IgM Ab is reported as Equivocal, a new sample should be drawn in two weeks for testing. Current interpretive data was last revised on 19. Hep B core IgM Nonreactive Nonreactive [facility] Comment: Interpretive Data If HepB Core IgM Ab is reported as Equivocal, a new sample should be drawn in two weeks for testing. Current interpretive data was last revised on 19. Hep C Ab Nonreactive Nonreactive [facility] Comment: Interpretive Data Nonreactive: Antibodies to HCV [...] last revised on 2019. HepBsAg Nonreactive Nonreactive [facility] Blood 04/16/2024 3:00 PM CHIEF ENGINEER DRILLING AND RECOVERY 04/16/2024 8:17 PM CHIEF ENGINEER DRILLING AND RECOVERY us Bertram Martinez MD LAB MICROBIOLOGY - GENERA L ORDERABLES Final Result [facility] [id number] Department [place] [address] * Diagnostic Mammogram Bilateral W Alfredo W [...] Recently Relevant to Health Maintenance Insurance MEDICARE MEDICARE MEDICARE Advance Directives For more information, please contact: [phone] * Full Code (Latest Code Status on File) Date Activated Date Inactivated Comments 04/07/2021 9:37 AM 04/07/2021 3:59 PM Care Teams Edge Glue Machine Tender Relationship Specialty Start Date End Date Bertram Martinez MD [address] [place] [address] PCP - General 09/01/16
--- OUTSIDE RECORDS SUMMARY | 2024-09-04 11:27 | XMS_ITS | Encounter Summary ---
Author Organization [facility] Address [address] [place] [address] Care Team Providers Care Rn Maternal Child Name Role Phone Luis, External Provider Primary Care Provider Un available Encounter Details Date Type Department Care Team (Late st Contact Info) Description 12/14/2003 Outpatient Historical [facility] Internal Medicine [address] [address] Daniel Vasquez MD [address] [place] [phone] Social History Tobacco Use Types Packs/Day Years Used Date Smoking Tobacco: Never Assessed Comments Unknown Sex and Gender Information Value Date Recorded Sex Assigned at Not on file Legal Sex Female 4:57 AM CLINICAL PSYCHOLOGY PROFESSOR Gender Identity Not on file Sexual Orientation Not on file documented as of this encounter Plan of Treatment Not on file documented as of this encounter Visit Diagnoses Not on filedocumented in this encounter Care Teams Rn Maternal Child Relationship Specialty Start Date End Date Luis, External Provider [address] [place] [address] PCP - General 10/22/11 documented as of this encounter
--- OUTSIDE RECORDS SUMMARY | 2024-09-04 11:28 | XMS_ITS | Encounter Summary ---
Author Organization [facility] Address [address] [place] [address] Care Team Providers Care Industrial Designer Name Role Phone [facility], External Provider Primary Care Provider Un available Encounter Details Date Type Department Care Team (Late st Contact Info) Description 08/08/2005 Orders Only [facility] Internal Medicine [address] [phone] Daniel Vasquez MD [address] [place] [phone] Social History Tobacco Use Types Packs/Day Years Used Date Smoking Tobacco: Never Assessed Comments Unknown Sex and Gender Information Value Date Recorded Sex Assigned at Not on file Legal Sex Female 4:57 AM TICK INSPECTOR Gender Identity Not on file Sexual Orientation Not on file documented as of this encounter Progress Notes * Daniel Vasquez MD - 03/12/2008 5:11 PM CDT WEIGHT: 178lbs BLOOD PRESSURE: 110/70 Right Arm Sitting TEMPERATURE: 36.1??c Oral NURSE NAME: Angie WestfallMino CHIEF COMPLAINT Patient complains of head congestion, cough. eyes red and draining. HISTORY: HISTORY: sinus congestion x several days, now with bilateral eye redness, pus in eye this am PHYSICAL EXAMINATION: EYES: PUPILS: Pupils equal and normally reactive to light and accommodation. OTHER: bay conj erythema, purulent left eye EARS, NOSE, MOUTH AND THROAT: EARS: EFFUSION PRESENT BILATERALLY. ORAL: OROPHARYNX ERYTHEMATOUS. NECK/THYROID: Trachea midline. No thyroid enlargement, tenderness, or mass. No supraclavicular or cervical adenopathy. RESPIRATORY: Clear to auscultation and percussion. Normal respiratory effort. CARDIOVASCULAR: CARDIAC: Regular rhythm. No murmurs, rubs, or gallops. EDEMA/VARICOSITIES OF EXTREMITIES: No edema or varicosities. ASSESSMENT/PLAN: 783.1-ABNORMAL WEIGHT GAIN off phentermine, lost 20lb through diet and exercise 372.00-CONJUNCTIVITIS MEDICATIONS: TOBRAMYCIN SULFATE OPHTHALMIC SOLUTION 0.3 %, DIRECTED, 7 Duration/Days Supply, status: NEW PRESCRIPTION, 08/08/2005, Comment: 1-2 gtts qid x 7d. PATANOL OPHTHALMIC SOLUTION 0.1 %, 1 Two Times A Day, 1 Fills, 30 Duration/Days Supply, status: NEWPRESCRIPTION, 08/08/2005. LAB ORDERS: Order number: [id number] Test Ordered: CULTURE, AEROBIC BACTERIA 461.9-SINUSITIS UNSPECIFIED MEDICATIONS: ZITHROMAX Z-IGGY ORAL TABLET 250 MG, DIRECTED, 1 Dispensed, status: NEW PRESCRIPTION, 08/08/2005. RETURN VISIT : Instructed to call if not improving. Electronically Signed by: Daniel Vasquez MD on Monday, August 08, 2005 documented in this encounter Plan of Treatment Not on file documented as of this encounter Visit Diagnoses Not on filedocumented in this encounter Care Teams Industrial Designer Relationship Specialty Start Date End Date [facility], External Provider [address] [place] [address] PCP - General 10/22/11 documented as of this encounter
--- OUTSIDE RECORDS SUMMARY | 2024-09-04 11:28 | XMS_ITS | Encounter Summary ---
Author Organization [facility] Address [address] [place] [address] Care Team Providers Care Apartment Community Manager Name Role Phone Luis, External Provider Primary Care Provider Un available Encounter Details Date Type Department Care Team ([facility] Contact Info) Description 01/25/2005 Outpatient Historical [facility] Internal Medicine [address] [phone] Daniel Vasquez MD [address] [place] [phone] Social History Tobacco Use Types Packs/Day Years Used Date Smoking Tobacco: Never Assessed Comments Unknown Sex and Gender Information Value Date Recorded Sex Assigned at Not on file Legal Sex Female 4:57 AM MARINA MANAGER Gender Identity Not on file Sexual Orientation Not on file documented as of this encounter Last Filed Vital Signs Vital Sign Reading Time Taken Comments Blood Pressure 120/70 01/25/2005 1:30 PM CDT Pulse - - Temperature - - Respiratory Rate - - Oxygen Saturation - - Inhaled Oxygen Concentration - - Weight 89.8 kg (198 lb) 01/25/2005 1:30 PM CDT Height - - Body Mass Index - - documented in this encounter Plan of Treatment Not on file documented as of this encounter Visit Diagnoses Not on filedocumented in this encounter Care Teams Apartment Community Manager Relationship Specialty Start Date End Date Luis, External Provider [address] [place] [address] PCP - General 10/22/11 documented as of this encounter
--- OUTSIDE RECORDS SUMMARY | 2024-09-04 11:28 | XMS_ITS | Encounter Summary ---
Author Organization [facility] Address [address] [place] [address] Care Team Providers Care Jet Man Name Role Phone Luis, External Provider Primary Care Provider Un available Encounter Details Date Type Department Care Team ([facility] Contact Info) Description 03/22/2006 Outpatient Historical [facility] Internal Medicine [address] [phone] Daniel Vasquez MD [address] [place] [phone] Social History Tobacco Use Types Packs/Day Years Used Date Smoking Tobacco: Never Assessed Comments Unknown Sex and Gender Information Value Date Recorded Sex Assigned at Not on file Legal Sex Female 4:57 AM CONCESSION MANAGER Gender Identity Not on file Sexual Orientation Not on file documented as of this encounter Last Filed Vital Signs Vital Sign Reading Time Taken Comments Blood Pressure 120/70 03/22/2006 1:30 PM CDT Pulse - - Temperature - - Respiratory Rate - - Oxygen Saturation - - Inhaled Oxygen Concentration - - Weight 83.9 kg (185 lb) 03/22/2006 1:30 PM CDT Height - - Body Mass Index - - documented in this encounter Plan of Treatment Not on file documented as of this encounter Visit Diagnoses Not on filedocumented in this encounter Care Teams Jet Man Relationship Specialty Start Date End Date Luis, External Provider [address] [place] [address] PCP - General 10/22/11 documented as of this encounter
--- OUTSIDE RECORDS SUMMARY | 2024-09-04 11:28 | XMS_ITS | Encounter Summary ---
Author Organization [facility] Address [address] [place] [address] Care Team Providers Care Trading Specialist Name Role Phone Luis, External Provider Primary Care Provider Un available Encounter Details Date Type Department Care Team (Late st Contact Info) Description 01/25/2005 Outpatient Historical [facility] Internal Medicine [address] [phone] Daniel Vasquez MD [address] [place] [phone] Social History Tobacco Use Types Packs/Day Years Used Date Smoking Tobacco: Never Assessed Comments Unknown Sex and Gender Information Value Date Recorded Sex Assigned at Not on file Legal Sex Female 4:57 AM MICROFILM TECHNICIAN Gender Identity Not on file Sexual Orientation Not on file documented as of this encounter Plan of Treatment Not on file documented as of this encounter Visit Diagnoses Not on filedocumented in this encounter Care Teams Trading Specialist Relationship Specialty Start Date End Date Luis, External Provider [address] [place] [address] PCP - General 10/22/11 documented as of this encounter
--- OUTSIDE RECORDS SUMMARY | 2024-09-04 11:28 | XMS_ITS | Encounter Summary ---
Author Organization [facility] Address [address] [place] [address] Care Team Providers Care Family Services Manager Name Role Phone Luis, External Provider Primary Care Provider Un available Encounter Details Date Type Department Care Team ([facility] Contact Info) Description 12/01/2004 Outpatient Historical [facility] Internal Medicine [address] [phone] Daniel Vasquez MD [address] [place] [phone] Social History Tobacco Use Types Packs/Day Years Used Date Smoking Tobacco: Never Assessed Comments Unknown Sex and Gender Information Value Date Recorded Sex Assigned at Not on file Legal Sex Female 4:57 AM SENIOR ACCOUNTING ANALYST Gender Identity Not on file Sexual Orientation Not on file documented as of this encounter Last Filed Vital Signs Vital Sign Reading Time Taken Comments Blood Pressure 130/70 12/01/2004 10:00 AM CDT Pulse - - Temperature - - Respiratory Rate - - Oxygen Saturation - - Inhaled Oxygen Concentration - - Weight 89.4 kg (197 lb) 12/01/2004 10:00 AM CDT Height - - Body Mass Index - - documented in this encounter Plan of Treatment Not on file documented as of this encounter Visit Diagnoses Not on filedocumented in this encounter Care Teams Family Services Manager Relationship Specialty Start Date End Date Luis, External Provider [address] [place] [address] PCP - General 10/22/11 documented as of this encounter
--- OUTSIDE RECORDS SUMMARY | 2024-09-04 11:28 | XMS_ITS | Encounter Summary ---
Author Organization [employer] Address [address] [place] [address] Care Team Providers Care Supervisor Waterworks Name Role Phone [facility], External Provider Primary Care Provider Un available Encounter Details Date Type Department Care Team (Latest Contact Info) Description 11/28/2004 Outpatient Historical [facility] Daniel Vasquez MD [address] [place] [phone] LUMBAR DISC DISPLACEMENT (Primary Dx) Social History Tobacco Use Types Packs/Day Years Used Date Smoking Tobacco: Never Assessed Comments Unknown Sex and Gender Information Value Date Recorded Sex Assigned at Not on file Legal Sex Female 4:57 AM FAMILY PRACTICE MEDICAL DOCTOR Gender Identity Not on file Sexual Orientation Not on file documented as of this encounter Plan of Treatment Not on file documented as of this encounter Visit Diagnoses Diagnosis Displacement of lumbar intervertebral disc without myelopathy- Primary documented in this encounter Care Teams Supervisor Waterworks Relationship Specialty Start Date End Date [facility], External Provider [address] [place] [address] PCP - General 10/22/11 documented as of this encounter
--- OUTSIDE RECORDS SUMMARY | 2024-09-04 11:28 | XMS_ITS | Encounter Summary ---
Author Organization [facility] Address [address] [place] [address] Care Team Providers Care Humanities Teacher Name Role Phone [facility], External Provider Primary Care Provider Un available Encounter Details Date Type Department Care Team (Late st Contact Info) Description 01/08/2006 Orders Only [facility] Internal Medicine [address] [phone] Daniel Vasquez MD [address] [place] [phone] Social History Tobacco Use Types Packs/Day Years Used Date Smoking Tobacco: Never Assessed Comments Unknown Sex and Gender Information Value Date Recorded Sex Assigned at Not on file Legal Sex Female 4:57 AM PATIENT SUPPORT REPRESENTATIVE Gender Identity Not on file Sexual Orientation Not on file documented as of this encounter Progress Notes * Daniel Vasquez MD - 03/12/2008 10:02 PM CDT WEIGHT: 180lbs BLOOD PRESSURE: 110/70 Right Arm Sitting TEMPERATURE: 36.3??c Oral NURSE NAME: Jeffery Zapien N CHIEF COMPLAINT Patient complains of earaches. right ear, started on Sunday. HISTORY: was swimming, mild sinus, ear pain with popping, canal itching worsening, had uti sx, tookketek HISTORY: 272.4-HYPERLIPIDEMIA The patient has lost weight. 724.5-BACK PAIN The back pain remains stable. 216.9-SKIN BENIGN NEOPLASM SITE UNSPECIFIED lesions growing on le, hx of sun exposure 381.01-OTITIS MEDIA ACUTE SEROUS pain occ severe, see above 380.10-OTITIS EXTERNA as above ROS: ENDOCRINE: No heat or cold intolerance, no excessive thirst. CARDIAC: No chest pain, palpitations, orthopnea, dyspnea on exertion, or paroxysmal nocturnal dyspnea. RESPIRATORY: No dyspnea, cough, hemoptysis or wheezing. : See HISTORY OF PRESENT ILLNESS. PAST MEDICAL HISTORY: reviewed SOCIAL HISTORY: TOBACCO USE: Has no significant smoking history. ALCOHOL: Does not give any significant history of alcohol usage. PHYSICAL EXAMINATION: CONSTITUTIONAL: GENERAL APPEARANCE: Healthy appearing patient in no distress. EARS, NOSE, MOUTH AND THROAT: EARS: RIGHT EXTERNAL AUDITORY CANAL INFLAMED, EFFUSION PRESENT IN THE RIGHT EAR, RIGHT TYMPANIC MEMBRANE INFLAMED. ORAL: Inspection of gums, lips, palate, and teeth normal. No scars, lesions, or masses. Oral mucosaunremarkable with non-inflamed posterior pharynx. NECK/THYROID: Trachea midline. No thyroid enlargement, tenderness, or mass. No supraclavicular or cervical adenopathy. RESPIRATORY: Clear to auscultation and percussion. Normal respiratory effort. CARDIOVASCULAR: CARDIAC: Regular rhythm. No murmurs, rubs, or gallops. ARTERIAL: Aortic pulses of normal amplitude with no bruits. EDEMA/VARICOSITIES OF EXTREMITIES: No edema or varicosities. GASTROINTESTINAL: ABDOMEN: Soft, non-tender, without masses. Bowel sounds active. LIVER/SPLEEN/KIDNEY: No hepatosplenomegaly, tenderness or nodularity. Kidneys not palpable. SKIN: dermoid cyst le, scaled dark lesion right upper thigh ASSESSMENT/PLAN: 724.5-BACK PAIN stable 599.0-URINARY TRACT INFECTION recheck ua if sx recue LAB ORDERS: Order number: [id number] Test Ordered: URINALYSIS, COMPLETE W/REFLEX TO CULTURE 3020 381.01-OTITIS MEDIA ACUTE SEROUS MEDICATIONS: CEFUROXIME AXETIL ORAL TABLET 250 MG, 1 Two Times A Day, 20 Dispensed, status: NEW PRESCRIPTION, 01/08/2006. 380.10-OTITIS EXTERNA MEDICATIONS: CORTISPORIN OTIC SOLUTION 3.5-98781-8, DIRECTED, 10 Duration/Days Supply, status: NEW PRESCRIPTION, 01/08/2006, Comment: 4 gtts qid x 10d. 216.9-SKIN BENIGN NEOPLASM SITE UNSPECIFIED refer derm SPECIALTY REFERRAL: DERMATOLOGY Dr. Liana Price ph: [phone]. PREVENTIVE COUNSELING The patient was counseled regarding regular sustained exercise for at least 30 minutes 3-4 times per week, the proper use of sunscreen and protective clothing. RETURN VISIT : Instructed to call if not improving. Electronically Signed by: Daniel Vasquez MD on Sunday, January 08, 2006 documented in this encounter Plan of Treatment Not on file documented as of this encounter Visit Diagnoses Not on filedocumented in this encounter Care Teams Humanities Teacher Relationship Specialty Start Date End Date [facility], External Provider [address] [place] [address] PCP - General 10/22/11 documented as of this encounter
--- OUTSIDE RECORDS SUMMARY | 2024-09-04 11:28 | XMS_ITS | Encounter Summary ---
Author Organization [facility] Address [address] [place] [address] Care Team Providers Care Teacher Selection Specialist Name Role Phone [facility], External Provider Primary Care Provider Un available Encounter Details Date Type Department Care Team (Late st Contact Info) Description 08/08/2005 Outpatient Historical [facility] Internal Medicine [address] [address] Daniel Vasquez MD [address] [place] [phone] Social History Tobacco Use Types Packs/Day Years Used Date Smoking Tobacco: Never Assessed Comments Unknown Sex and Gender Information Value Date Recorded Sex Assigned at Not on file Legal Sex Female 4:57 AM APPLIQUER Gender Identity Not on file Sexual Orientation Not on file documented as of this encounter Last Filed Vital Signs Vital Sign Reading Time Taken Comments Blood Pressure 110/70 08/08/2005 10:15 AM APPLIQUER Pulse - - Temperature 36.1 C (96.98 F) 08/08/2005 10:15 AM APPLIQUER Respiratory Rate - - Oxygen Saturation - - Inhaled Oxygen Concentration - - Weight 80.7 kg (178 lb) 08/08/2005 10:15 AM APPLIQUER Height - - Body Mass Index - - documented in this encounter Plan of Treatment Not on file documented as of this encounter Visit Diagnoses Not on filedocumented in this encounter Care Teams Teacher Selection Specialist Relationship Specialty Start Date End Date [facility], External Provider [address] [place] [address] PCP - General 10/22/11 documented as of this encounter
--- OUTSIDE RECORDS SUMMARY | 2024-09-04 11:28 | XMS_ITS | Clinical Summary ---
Author Organization [facility] Address [address] [place] [address] Care Team Providers Care Cleaning Laborer Name Role Phone Segundo Delarosa Primary Care Provider Juliet adams Source Comments [facility],non-owned Affiliates and Associated Physician Practices is amultiple site organization consisting of ambulatory clinics and hospital sitesin [place], [place], [place] and [place]. This disclosure is being madepursuant to the Care Everywhere program and may not contain all information available regarding this patient. Last updated 18.[facility] [employer] Social History Tobacco Use Types Packs/Day Years Used Date Smoking Tobacco: Never Assessed Sex and Gender Information Value Date Recorded Sex Assigned at Not on file Gender Identity Not on file Sexual Orientation Not on file Plan of Treatment Health Maintenance Due Date Last Done Comments LIPID TESTING 1981 MAMMOGRAM 1981 PAP SMEAR 1981 HIV SCREENING 02/10/1996 HEPATITIS C SCREENING 02/05/1999 DTAP/TDAP/TD VACCINES (1 - Tdap) 02/10/2000 HEPATITIS B VACCINE (1 of 3 - 19+ 3-dose series) 02/10/2000 COVID-19 VACCINE ( - 2023-2 5 season) 2024 DEPRESSION SCREENING 06/04/2024 INFLUENZA VACCINE (Season Ended) 2025 ZOSTER VACCINE (1 of 2) 2031 HIB VACCINE Aged Out No longer eligi ble based on patient's age to complete this topic HPV VACCINE Aged Out No longer eligi ble based on patient's age to complete this topic MENINGOCOCCAL (Group B) VACC INE SHARED DECISION-MAKING Aged Out No longer eligibl e based on patient's age to complete this topic MENINGOCOCCAL GROUPS A/C/Y/W VACCINE Aged Out No longer eligible b ased on patient's age to complete this topic PNEUMOCOCCAL VACCINE Aged Out No long er eligible based on patient's age to complete this topic Care Teams Cleaning Laborer Relationship Specialty Start Date End Date Segundo Delarosa Update Information PCP - General 11/15/18
--- OUTSIDE RECORDS SUMMARY | 2024-09-04 11:28 | XMS_ITS | Encounter Summary ---
Author Organization [facility] Address [address] [place] [address] Care Team Providers Care Credit Risk Modeler Name Role Phone [facility], External Provider Primary Care Provider Un available Encounter Details Date Type Department Care Team (Late st Contact Info) Description 03/22/2006 Orders Only [facility] Internal Medicine [address] [address] Daniel Vasquez MD [address] [place] [phone] Social History Tobacco Use Types Packs/Day Years Used Date Smoking Tobacco: Never Assessed Comments Unknown Sex and Gender Information Value Date Recorded Sex Assigned at Not on file 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 No thyroid enlargement, tenderness, or mass. No supraclavicular or cervical adenopathy. RESPIRATORY: Clear to auscultation and percussion. Normal respiratory effort. CARDIOVASCULAR: CARDIAC: Regular rhythm. No murmurs, rubs, or gallops. EDEMA/VARICOSITIES OF EXTREMITIES: No edema or varicosities. GASTROINTESTINAL: ABDOMEN: Soft, non-tender, without masses. Bowel sounds active. ASSESSMENT/PLAN: 309.81-ADJUSTMENT REACTION start med, discussed MEDICATIONS: EFFEXOR XR ORAL CAPSULE 24 HR 37.5 MG, 1 Every Day, 30 Dispensed, status: NEW PRESCRIPTION, 03/22/2006. 682.9-CELLULITIS/ABSCESS topical rx,, PO abx if worsens MEDICATIONS: BACTROBAN NASAL NASAL OINTMENT 2 %, 1 Two Times A Day, 1 Fills, 10 Duration/Days Supply, status: NEW PRESCRIPTION, 03/22/2006. LAB ORDERS: Order number: [id number] Test Ordered: CULTURE, AEROBIC WOUND W/SMEAR 8992 493.90-ASTHMA UNSPECIFIED stable, enc flu vaccine avoid tob products RETURN VISIT : Patient instructed to return in 6 weeks. Electronically Signed by: Daniel Vasquez MD on March documented in this encounter Plan of Treatment Not on file documented as of this encounter Visit Diagnoses Not on filedocumented in this encounter Care Teams Credit Risk Modeler Relationship Specialty Start Date End Date [facility], External Provider [address] [place] [address] PCP - General 10/22/11 documented as of this encounter
--- OUTSIDE RECORDS SUMMARY | 2024-09-04 11:28 | XMS_ITS | Clinical Summary ---
Author Organization [facility] Administrative Offices Address [address] [place] [phone] Care Team Providers Care Spd Tech Name Role Phone [facility], External Provider Primary Care Provider Un available Allergies Active Allergy Reactions Criticality Noted Date Comments Ciprofloxacin 08/04/2003 Codeine 12/01/2004 Cyclobenzaprine Other (See Comments) 10/22/2011 States she slept for 3 days. Hydrocodone-Acetaminophe n 08/04/2003 Meperidine 12/01/2004 Morphine Bradycardia Medium 10/22/2011 Sulfa (Sulfonamide Antibiotics) Palpitations Low 10/22/2011 Medications IBUPROFEN 800 MG TAB 1 Two Times A Day 60.00 0 11/27/2005 Active meloxicam (MOBIC) 7.5 mg Oral tablet Take 7.5 mg by mouth daily. Active LORazepam (ATIVAN) 1 mg Oral tablet Take 1 Tab by mouth every 6 hours as needed (PRN for anxiety) for 5 doses. 20 Tab None 10/22/2011 Active Active Problems Problem Noted Date Diagnosed Date Unspecified asthma(493.90) 03/22/2006 Urinary tract infection, site not specified 12/2005 Acute serous otitis media 01/08/2006 Infective otitis externa, unspecified 01/08/2006 Benign neoplasm of skin, site unspecified 2005 Acute conjunctivitis, unspecified 08/08/2005 Acute sinusitis, unspecified 08/08/2005 Rash and other nonspecific skin eruption 005 Dysphagia 01/25/2005 Overview (06/29/2010): Updating IMO/ICD9 Code and Description Unspecified urinary incontinence 12/01/2004 Posttraumatic stress disorder 03/31/2004 Cellulitis and abscess of unspecified site 12/13 Other and unspecified hyperlipidemia 09/30/2003 Abnormal weight gain 09/30/2003 Unspecified asthma, with status asthmaticus 07/2003 Backache, unspecified 08/04/2003 Immunizations Immunization Administration Dates Next Due (PNEUMOVAX 23)(50 YRS UP) PN EUMOCOCCAL POLYSACCHARIDE (PPV23) 0.5 ML, IM 08/04/2003 (TDVAX)(7 YRS UP) TETANUS AN D DIPHTHERIA TOXOIDS, ADSORBED (2 LF OF TETANUS TOXOID AND 2 LF OF DIPHTHERIA TOXOID), 0.5ML (PF), IM 12/14/2003 Social History Tobacco Use Types Packs/Day Years Used Date Smoking Tobacco: Never Assessed Comments No Sex and Gender Information Value Date Recorded Sex Assigned at Not on file 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 Gender Identity Not on file Sexual Orientation Not on file Last Filed Vital Signs Vital Sign Reading Time Taken Comments Blood Pressure 134/76 10/22/2011 5:51 PM CDT Pulse 80 10/22/2011 5:51 PM CDT Temperature 37 C (98.6 F) 10/22/2011 4:00 PM CDT Respiratory Rate 20 10/22/2011 5:51 PM CDT Oxygen Saturation 99% 10/22/2011 5:51 PM CDT Inhaled Oxygen Concentration - - Weight 83.9 kg (185 lb) 03/22/2006 1:30 PM CDT Height 172.7 cm (5' 8 ) 10/22/2011 4:00 PM CDT Body Mass Index - - Plan of Treatment Health Maintenance Due Date Last Done Comments HEPATITIS B VACCINES (1 of 3 - 19+ 3-dose series) 02/10/2000 HPV/Cotest (21-29) 2002 PAP SMEAR 2002 DTAP/TDAP/TD VACCINES (1 - Tdap) 12/15/2003 12/14/19 04 CERVICAL CANCER SCREENING 2011 HPV/Cotest (30-65) 2011 PAP SMEAR 2011 BREAST CANCER SCREENING 2021 INFLUENZA VACCINE (#1) 2024 HPV VACCINES Aged Out No longer eligi ble based on patient's age to complete this topic Insurance [facility] OPTIONS PPO [id number] Care Teams Spd Tech Relationship Specialty Start Date End Date [facility], External Provider [address] [place] [address] PCP - General 10/22/11
--- OUTSIDE RECORDS SUMMARY | 2024-09-04 11:28 | XMS_ITS | Encounter Summary ---
Author Organization [facility] Address [address] [place] [address] Care Team Providers Care Siphoner Name Role Phone Luis, External Provider Primary Care Provider Un available Encounter Details Date Type Department Care Team (Latest Contact Info) Description 03/22/2006 Outpatient Historical [facility] Internal Medicine [address] [phone] Daniel Vasquez MD [address] [place] [phone] Cellulitis and Abscess of Unspecified Site (Primary Dx) Social History Tobacco Use Types Packs/Day Years Used Date Smoking Tobacco: Never Assessed Comments Unknown Sex and Gender Information Value Date Recorded Sex Assigned at Not on file 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
== END 2024-09-04 11:44 | disposition home or self-care (01) ==
PROVIDERS: Emergency Provider Nurse Practitioner; PCP Family Medicine
DX: S80.12XA Contusion of left lower leg, initial encounter (principal); S80.11XA Contusion of right lower leg, initial encounter; W19.XXXA Unspecified fall, initial encounter; Q79.60 Ehlers-Danlos syndrome, unspecified; F17.200 Nicotine dependence, unspecified, uncomplicated; F12.90 Cannabis use, unspecified, uncomplicated
CPT/HCPCS: 99211; G0463

== ENCOUNTER 2024-09-27 10:43 | Emergency (ER) | payer MEDICARE, SELFPAY ==
--- NOTE | ~2024-09-27 | XR_ITS ---
EXAMINATION: XR foot LT min 3V DATE: 09/27/2024 11:13 INDICATION: Pain at the metatarsophalangeal joints of the left foot. TECHNIQUE: Dorsoplantar, two oblique and lateral views of the left foot were obtained. COMPARISON: None. FINDINGS: Bone alignment is normal. No fracture. Mild osteoarthritis at the first metatarsophalangeal joint wit h mild nonuniform joint space narrowing and small marginal osteophyte at the lateral head of the firs t metatarsal. Remaining joint spaces are relatively preserved. No erosions to suggest an inflammatory arthritis. Small plantar calcaneal spur. Soft tissues are unremarkable. IMPRESSION: 1. Mild osteoarthritis at the first metatarsophalangeal joint. Reviewed, dictated and finalized at location A.
--- OUTSIDE RECORDS SUMMARY | 2024-09-27 10:45 | XMS_ITS | Encounter Summary ---
Author Organization [facility] Address 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
--- OUTSIDE RECORDS SUMMARY | 2024-09-27 10:46 | XMS_ITS | Encounter Summary ---
Author Organization [facility] Address [address] [place] [address] Care Team Providers Care Event Organizer Name Role Phone Luis, External Provider Primary Care Provider Un available Encounter Details Date Type Department Care Team (Late st Contact Info) Description 12/14/[address] 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
--- OUTSIDE RECORDS SUMMARY | 2024-09-27 10:46 | XMS_ITS | Encounter Summary ---
Author Organization [facility] Address [address] [place] [address] Care Team Providers Care Mainframe Consultant Name Role Phone Luis, External Provider Primary Care Provider Un available Encounter Details Date Type Department Care Team (Late st Contact Info) Description 12/14/2003 Outpatient Historical [facility] Internal Medicine [address] [phone] Daniel Vasquez MD [address] [place] [phone] Social History Tobacco Use Types Packs/Day Years Used Date Smoking Tobacco: Never Assessed Comments Unknown Sex and Gender Information Value Date Recorded Sex Assigned at Not on file 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
--- OUTSIDE RECORDS SUMMARY | 2024-09-27 10:46 | XMS_ITS | Encounter Summary ---
Author Organization [facility] Address [address] [place] [address] Care Team Providers Care Sales And Marketing Administrator Name Role Phone [facility], External Provider Primary Care Provider Un available Encounter Details Date Type Department Care Team (Late st Contact Info) Description 01/08/2006 Outpatient Historical [facility] Internal Medicine [address] [phone] Daniel Vasquez MD [address] [place] [phone] Social History Tobacco Use Types Packs/Day Years Used Date Smoking Tobacco: Never Assessed Comments Unknown Sex and Gender Information Value Date Recorded Sex Assigned at Not on file Legal Sex Female 4:57 AM 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
--- OUTSIDE RECORDS SUMMARY | 2024-09-27 10:46 | XMS_ITS | Referral Summary ---
Author Organization [facility] Address [address] [place] [address] Care Team Providers Care Employment Representative Name Role Phone Bertram Martinez MD Primary Care Provider [phone] Encounters Date Type Department Care Team Description 09/11/2024 3:02 PM CDT - 09/11/2024 11:59 PM CDT Hospital Encounter [facility] Emergency, Room R Discharge Disposition: Discharge to home or self care 09/11/2024 3:26 PM CDT - 09/11/2024 6:26 PM CDT Emergency [facility] Emergency Department [address] [place] [address] Allergic reaction, initial encounter (Primary Dx) Discharge Disposition: Discharge to home or self care 07/23/2024 1:45 PM FITTER HELPER Office Visit [facility] [address] [place] [address] Bertram Martinez MD Screening mammogram for breast cancer (Primary Dx); Need for influenza vaccination; Need for pneumococcal 20-valent conjugate vaccination; Regurgitation of food; Dysphagia, unspecified type; Rectocele; 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; 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 Allergies Active Allergy Reactions Criticality Noted Date Comments Acetaminophen Venom-Honey Bee Anaphylaxis High 09/11/2024 Ciprofloxacin Codeine Cyclobenzaprine Hydrocodone Hydrocodone-Acetaminophen Nitrofurantoin Monohyd/M-Cryst Anaphylaxis High 06/0 11/2020 Meperidine Morphine Carisoprodol Unknown 06/30/2019 Sulfa (Sulfonamide Antibiotics) Medications ondansetron ODT (ZOFRAN-ODT) 4 mg disintegrating tabletIndications :IBS and chronic vomtiing Dissolve 1 tablet on the tongue every 4 hours as needed for nausea or vomiting 15 tablet 5 023 Active linaCLOtide (Linzess) 145 mcg capsule TAKE 1 CAPSULE(145 MCG) BY MOUTH DAILY 100 capsule [address] (VOLTAREN) 75 mg EC tablet Take 1 tablet (75 mg total) by mouth 2 (two) times a day 60 tablet 11 024 Active busPIRone (BUSPAR) 15 mg tablet TAKE 1 TABLET BY MOUTH THREE TIMES DAILY 90 tablet [address] (CYMBALTA) 60 mg [...] NEEDED. AVOID FACE AND GROIN 30 [address] (PROTONIX) 40 mg EC tablet Take 1 tablet (40 mg total) by mouth daily 90 tablet 1 024 Active albuterol HFA (PROVENTIL HFA,VENTOLIN HFA,PROAIR HFA) 90 mcg/actuation inhaler Inhale 2 puffs every 6 (six) hours as needed for wheezing 3 each 4 024 2024 Active scopolamine 1 mg over 3 days patch [address] 1 patch on the skin every third day as needed (nausea) 4 patch 2 025 Active valACYclovir (VALTREX) 1 gram tablet TAKE [...] take with alprazolam) for pain 25 tablet Active famotidine (PEPCID) 20 mg tablet Take 1 tablet (20 mg total) by mouth 2 (two) times a day 20 tablet 025 2025 Active EPINEPHrine 0.3 mg/0.3 mL auto-injection syringeIndication s:Anaphylaxis Inject 0.3 mL (0.3 mg total) into the muscle as instructed as needed for anaphylaxis 2 each Active EPINEPHrine (EpiPen) 0.3 mg/0.3 mL auto-injection syringeIndication s:Anaphylaxis Inject 0.3 mL (0.3 mg total) into the muscle as instructed as needed for anaphylaxis 1 each 024 2024 Discontinued ALPRAZolam (XANAX) 1 mg [...] pain 25 tablet 025 2024 Discontinued(R eorder) predniSONE (DELTASONE) 50 mg tablet Take 1 tablet (50 mg) by mouth daily for 4 days 4 tablet 025 2024 Active Problems Problem Noted Date Diagnosed Date Screening mammogram for breast cancer 08/03/2024 Assessment & Plan (08/03/2024 8:31 AM FITTER HELPER): Breat cancer screenign and will montior erpsonse. Need for influenza vaccination 08/03/2024 Assessment & Plan (08/03/2024 8:31 AM FITTER HELPER): Udpated. Need for pneumococcal 20-valent conjugate vaccin ation 08/03/2024 Assessment & Plan (08/03/2024 8:32 AM FITTER HELPER): updated Regurgitation of food 08/03/2024 Assessment & Plan (08/03/2024 8:32 AM FITTER HELPER): As above. Referral to GI for evaluatoin. Rectocele 08/03/2024 Assessment & Plan (08/03/2024 8:32 AM FITTER HELPER): As above. Chronic instability of metac arpophalangeal joint of left thumb 08/03/2024 Assessment & Plan (08/03/2024 8:32 AM FITTER HELPER): Referral to hand surgery. Sig laxity noted and discomfort and will follow response. 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 Myogenic ptosis of bilateral eyelids 06/30/2023 Assessment & Plan (08/25/2023 9:11 AM CDT): Marked improvement following reduced impact from previous neurotoxin treatment. She demonstrates good MRD1 without ptosis. We have discussed these findings and have elected to defer upper eyelid surgery. She will return as needed. Assessment & Plan (06/30/2023 11:06 PM FITTER HELPER): Mild ptosis of both eyes. Recent Botox [...] 03/21/2021 Assessment & Plan (08/03/2024 8:31 AM FITTER HELPER): Referral to EGD. Aware of complexity with [...] PM CDT): Surgery scheduled for 12/31/18 at [facility] w/Dr Balta Peres for: breast augmentation, abdominoplasty & liposuction. Mrs Giles states that EKG & labs completed at [facility] yesterday. Office has called to get [...] week 11/06/2022 How often do you attend chur or holiness services? More than 4 times per year 11/06/2022 Do you belong to any clubs o r organizations such as anabaptism groups, unions, fraternal or athletic groups, or [...] staff should administer the PHQ-9) 0 01/21/2024 [facility] - Occupational Stress Questionnaire Answer Date Recorded [...] money to buy more. Never true 11/07/19 Within the past 12 months, t he [...] place to sleep or slept in a group home (including now)? No 11/06/2022 Personal Safety Answer Date Recorded Have you ever been in or are you currently in a harmful physical or emotional relationship or is someone making you feel afraid or unsafe? Denies 09/11/2024 Comments No Sex and Gender Information Value Date Recorded Sex Assigned at Not on file Legal Sex Female 12:52 AM FITTER HELPER Gender Identity Not on file Sexual Orientation Not on file Last Filed Vital Signs Vital Sign Reading Time Taken Comments Blood Pressure 99/51 09/11/2024 5:45 PM CDT Pulse 59 09/11/2024 5:45 PM CDT Temperature 36.8 C (98.2 F) 09/11/2024 3:48 PM CDT Respiratory Rate 12 09/11/2024 5:45 PM CDT Oxygen Saturation 96% 09/11/2024 5:45 PM CDT Inhaled Oxygen Concentration - - Weight 64.4 kg (142 lb) 09/11/2024 3:33 PM CDT Height 175.3 cm (5' 9 ) 09/11/2024 3:33 PM CDT Body Mass Index 20.97 09/11/2024 3:33 PM CDT Plan of Treatment Not on file Procedures Procedure Name Priority Date/Time Associated Diagnosis Comments HEPATITIS PANEL, ACUTE Routine 04/16/2024 3:00 PM FITTER HELPER Screening examination for STI DIAGNOSTIC MAMMOGRAM BILATERAL W ALFREDO W IMPLANTS Schedule Routine, Read Routine (OP Routine) 01/11/2023 2:11 PM CDT Abnormal mammogram from Last 3 Months or Most Recently Relevant to Health Maintenance Results * Hepatitis panel, acute Blood (04/16/2024 3:00 PM FITTER HELPER) Hep A IgM Nonreactive Nonreactive Comment: Interpretive Data: If Hep A IgM Ab is reported as Equivocal, a new sample should be drawn in two weeks for testing. Current interpretive data was last revised on 19. Hep B core IgM Nonreactive Nonreactive [facility] Comment: Interpretive Data If HepB Core IgM Ab is reported as Equivocal, a new sample should be drawn in two weeks for testing. Current interpretive data was last revised on 19. Hep C Ab Nonreactive Nonreactive [facility] Comment: Interpretive Data Nonreactive: Antibodies to HCV [...] last revised on 2019. HepBsAg Nonreactive Nonreactive [facility] Blood 04/16/2024 3:00 PM FITTER HELPER 04/16/2024 8:17 PM FITTER HELPER us Betrram Martinez MD LAB MICROBIOLOGY - GENERA L ORDERABLES Final Result [facility] [address] Department [place] [address] * Diagnostic Mammogram Bilateral W Alfredo W [...] breast is no longer seen. Kimi Bowie BACK TENDER PULP DRIER IMG MAMMO PROCEDURES Final Result from Last 3 Months or Most Recently Relevant to Health Maintenance Insurance MEDICARE MEDICARE MEDICARE Advance Directives For more information, please contact: [phone] * Full Code (Latest Code Status on File) Date Activated Date Inactivated Comments 04/07/2021 9:37 AM 04/07/2021 3:59 PM Care Teams Employment Representative Relationship Specialty Start Date End Date Bertram Martinez MD [address] [place] [address] PCP - General 09/01/16
--- OUTSIDE RECORDS SUMMARY | 2024-09-27 10:46 | XMS_ITS | Encounter Summary ---
Author Organization [facility] Address 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
--- OUTSIDE RECORDS SUMMARY | 2024-09-27 10:46 | XMS_ITS | Encounter Summary ---
Author Organization [facility] Address [address] [place] [address] Care Team Providers Care Facility Supervisor Name Role Phone Luis, External Provider Primary Care Provider Un available Encounter Details Date Type Department Care Team (Latest Contact Info) Description 03/22/[address] 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
--- OUTSIDE RECORDS SUMMARY | 2024-09-27 10:46 | XMS_ITS | Encounter Summary ---
Author Organization [facility] Address [address] [place] [address] Care Team Providers Care User Experience Manager Name Role Phone Luis, External Provider Primary Care Provider Un available Encounter Details Date Type Department Care Team ([facility] Contact Info) Description 03/31/2004 Outpatient Historical [facility] Internal Medicine [address] [phone] Daniel Vasquez MD [address] [place] [phone] Social History Tobacco Use Types Packs/Day Years Used Date Smoking Tobacco: Never Assessed Comments Unknown Sex and Gender Information Value Date Recorded Sex Assigned at Not on file Legal Sex Female 4:57 AM ADVISORY INTERNSHIP Gender Identity Not on file Sexual Orientation [...] on filedocumented in this encounter Care Teams User Experience Manager Relationship Specialty Start Date End Date Luis, External Provider [address] [place] [address] PCP - General 10/22/11 documented as of this encounter
--- OUTSIDE RECORDS SUMMARY | 2024-09-27 10:46 | XMS_ITS | Encounter Summary ---
Author Organization [facility] Address [address] [place] [address] Care Team Providers Care Dishwashing Machine Repairer Name Role Phone [facility], External Provider Primary Care Provider Un available Encounter Details Date Type Department Care Team (Late st Contact Info) Description 01/08/2006 Orders Only [facility] Internal Medicine [address] [phone] Daniel Vasquez MD [address] [place] [phone] Social History Tobacco Use Types Packs/Day Years Used Date Smoking Tobacco: Never Assessed Comments Unknown Sex and Gender Information Value Date Recorded Sex Assigned at Not on file Legal Sex Female 4:57 AM SENIOR ARCHITECT/DESIGN MANAGER Gender Identity Not on file Sexual [...] if sx recue LAB ORDERS: Order number: [id number] Test Ordered: URINALYSIS, COMPLETE W/REFLEX TO CULTURE 3020 381.01-OTITIS MEDIA ACUTE SEROUS MEDICATIONS: CEFUROXIME AXETIL ORAL TABLET 250 MG, 1 Two Times A Day, 20 Dispensed, status: NEW PRESCRIPTION, 01/08/2006. 380.10-OTITIS EXTERNA MEDICATIONS: CORTISPORIN OTIC SOLUTION 3.5-57449-3, DIRECTED, 10 Duration/Days Supply, status: NEW PRESCRIPTION, 01/08/2006, Comment: 4 gtts qid x 10d. 216.9-SKIN BENIGN NEOPLASM SITE UNSPECIFIED refer derm SPECIALTY REFERRAL: DERMATOLOGY Dr. Liana Price ph: [phone]. PREVENTIVE COUNSELING The patient was counseled regarding [...] on filedocumented in this encounter Care Teams Dishwashing Machine Repairer Relationship Specialty Start Date End Date [facility], External Provider [address] [place] [address] PCP - General 10/22/11 documented as of this encounter
--- OUTSIDE RECORDS SUMMARY | 2024-09-27 10:46 | XMS_ITS | Encounter Summary ---
Author Organization [facility] Address [address] [place] [address] Care Team Providers Care Bar Host Name Role Phone [facility], External Provider Primary Care Provider Un available Encounter Details Date Type Department Care Team (Late st Contact Info) Description 11/27/2005 Orders Only [facility] Internal Medicine [address] [phone] Daniel Vasquez MD [address] [place] [phone] Social History Tobacco Use Types Packs/Day Years Used Date Smoking Tobacco: Never Assessed Comments Unknown Sex and Gender Information Value Date Recorded Sex Assigned at Not on file Legal Sex Female 4:57 AM DIRECTOR OF BUSINESS APPLICATIONS Gender Identity Not on file Sexual Orientation Not on file documented as of this encounter Progress Notes * Daniel Vasquez MD - 03/13/2008 8:53 AM CDT TIME:10:51 am PATIENT`S HOME PHONE: PATIENT`S WORK PHONE: PATIENT`S INSURANCE: [facility] WHO TOOK THE CALL: Lakisha Mckenzie GENERAL INFORMATION PCP: saw. BARRIE PHONE NUMBER: [phone] WHO CALLED: Patient called. CURRENT ALLERGY LIST: CIPRO CODEINE [facility] NUMBER: [phone] PROBLEMS: back went out again over the [...] on filedocumented in this encounter Care Teams Bar Host Relationship Specialty Start Date End Date [facility], External Provider [address] [place] [address] PCP - General 10/22/11 documented as of this encounter
--- OUTSIDE RECORDS SUMMARY | 2024-09-27 10:46 | XMS_ITS | Encounter Summary ---
Author Organization [facility] Address [address] [place] [address] Care Team Providers Care Crating And Moving Estimator Name Role Phone Luis, External Provider Primary Care Provider Un available Encounter Details Date Type Department Care Team ([facility] Contact Info) Description 01/25/2005 Outpatient Historical [facility] Internal Medicine [address] [phone] Daniel Vasquez MD [address] [place] [phone] Social History Tobacco Use Types Packs/Day Years Used Date Smoking Tobacco: Never Assessed Comments Unknown Sex and Gender Information Value Date Recorded Sex Assigned at Not on file Legal Sex Female 4:57 AM SPECIAL EDUCATION PARAEDUCATOR Gender Identity Not on file Sexual Orientation [...] on filedocumented in this encounter Care Teams Crating And Moving Estimator Relationship Specialty Start Date End Date Luis, External Provider [address] [place] [address] PCP - General 10/22/11 documented as of this encounter
--- OUTSIDE RECORDS SUMMARY | 2024-09-27 10:46 | XMS_ITS | Encounter Summary ---
Author Organization [facility] Address [address] [place] [address] Care Team Providers Care Toe Sewer Name Role Phone Luis, External Provider Primary Care Provider Un available Encounter Details Date Type Department Care Team ([facility] Contact Info) Description 09/30/2003 Outpatient Historical [facility] Internal Medicine [address] [phone] Daniel Vasquez MD [address] [place] [phone] Social History Tobacco Use Types Packs/Day Years Used Date Smoking Tobacco: Never Assessed Comments Unknown Sex and Gender Information Value Date Recorded Sex Assigned at Not on file Legal Sex Female 4:57 AM LINE SERVICE TECHNICIAN Gender Identity Not on file Sexual [...] on filedocumented in this encounter Care Teams Toe Sewer Relationship Specialty Start Date End Date uLis, External Provider [address] [place] [address] PCP - General 10/22/11 documented as of this encounter
--- OUTSIDE RECORDS SUMMARY | 2024-09-27 10:46 | XMS_ITS | Clinical Summary ---
Author Organization [facility] Address [address] [place] [address] Care Team Providers Care Military Police Officer Name Role Phone [facility], External Provider Primary Care Provider Un [...] on file Legal Sex Female 4:57 AM BENCH MOLDER Gender Identity Not on file Sexual Orientation [...] 19+ 3-dose series) 02/10/2000 HPV/Cotest (21-29) 2002 DTAP/TDAP/TD VACCINES (1 - Tdap) 12/15/2003 12/14/19 04 CERVICAL CANCER SCREENING 2011 HPV/Cotest (30-65) 2011 PAP SMEAR 2011 BREAST CANCER SCREENING 2021 INFLUENZA VACCINE (#1) 2024 HPV VACCINES Aged Out No longer eligi ble based on patient's age to complete this topic [place] [address] [place] [address] OPTIONS PPO [id number] Care Teams Military Police Officer Relationship Specialty Start Date End Date [facility], External Provider [address] [place] [address] PCP - General 10/22/11
--- OUTSIDE RECORDS SUMMARY | 2024-09-27 10:46 | XMS_ITS | Clinical Summary ---
Author Organization [facility] Address [address] [place] [address] Care Team Providers Care Intake Counselor Name Role Phone Segundo Delarosa Primary Care Provider Juliet adams Source Comments [facility],non-owned Affiliates and Associated Physician Practices is amultiple site organization consisting of ambulatory clinics and hospital sitesin [place], [place], [place] and [place]. This disclosure is being madepursuant to the Care Everywhere program and may not contain all information available regarding this patient. Last updated 18.[facility] Social History Tobacco Use Types Packs/Day Years Used Date Smoking Tobacco: Never Assessed Comments Unknown Sex and Gender Information Value Date Recorded Sex Assigned at Not on file Legal Sex Female 6:22 AM LUNCHROOM OPERATOR Gender Identity Not on file Sexual Orientation [...] patient's age to complete this topic Insurance [employer] Care Teams Intake Counselor Relationship Specialty Start Date End Date Segundo Delarosa Update Information PCP - General 11/15/18
--- OUTSIDE RECORDS SUMMARY | 2024-09-27 10:46 | XMS_ITS | Encounter Summary ---
Author Organization [facility] Address [address] [place] [address] Care Team Providers Care Car Seat Maker Name Role Phone [facility], External Provider Primary Care Provider Un available Encounter Details Date Type Department Care Team (Late st Contact Info) Description 08/08/2005 Outpatient Historical [facility] Internal Medicine [address] [phone] Daniel Vasquez MD [address] [place] [phone] Social History Tobacco Use Types Packs/Day Years Used Date Smoking Tobacco: Never Assessed Comments Unknown Sex and Gender Information Value Date Recorded Sex Assigned at Not on file Legal Sex Female 4:57 AM DATA ENTRY MANAGER Gender Identity Not on file Sexual Orientation Not on file documented as of this encounter Last Filed Vital Signs Vital Sign Reading Time Taken Comments Blood Pressure 110/70 08/08/2005 10:15 AM DATA ENTRY MANAGER Pulse - - Temperature 36.1 C (96.98 F) 08/08/2005 10:15 AM DATA ENTRY MANAGER Respiratory Rate - - Oxygen Saturation - - Inhaled Oxygen Concentration - - Weight 80.7 kg (178 lb) 08/08/2005 10:15 AM DATA ENTRY MANAGER Height - - Body Mass Index - - documented in this encounter Plan of Treatment Not on file documented as of this encounter Visit Diagnoses Not on filedocumented in this encounter Care Teams Car Seat Maker Relationship Specialty Start Date End Date [facility], External Provider [address] [place] [address] PCP - General 10/22/11 documented as of this encounter
--- OUTSIDE RECORDS SUMMARY | 2024-09-27 10:46 | XMS_ITS | Encounter Summary ---
Author Organization [facility] Address [address] [place] [address] Care Team Providers Care Events Manager Name Role Phone [facility], External Provider Primary Care Provider Un available Encounter Details Date Type Department Care Team (Late st Contact Info) Description 08/08/2005 Orders Only [facility] Internal Medicine [address] [phone] Daniel Vasquez MD [address] [place] [phone] Social History Tobacco Use Types Packs/Day Years Used Date Smoking Tobacco: Never Assessed Comments Unknown Sex and Gender Information Value Date Recorded Sex Assigned at Not on file Legal Sex Female 4:57 AM CONSULTING PRACTICE MANAGER Gender Identity Not on file Sexual [...] status: NEWPRESCRIPTION, 08/08/2005. LAB ORDERS: Order number: [id number] Test Ordered: CULTURE, AEROBIC BACTERIA 461.9-SINUSITIS UNSPECIFIED [...] on filedocumented in this encounter Care Teams Events Manager Relationship Specialty Start Date End Date [facility], External Provider [address] [place] [address] PCP - General 10/22/11 documented as of this encounter
--- OUTSIDE RECORDS SUMMARY | 2024-09-27 10:46 | XMS_ITS | Encounter Summary ---
Author Organization [facility] Address [address] [place] [address] Care Team Providers Care Order Dispatcher Chief Name Role Phone [facility], External Provider Primary Care Provider Un available Encounter Details Date Type Department Care Team (Late st Contact Info) Description 03/22/2006 Orders Only [facility] Internal Medicine [address] [phone] Daniel Vasquez MD [address] [place] [phone] Social History Tobacco Use Types Packs/Day Years Used Date Smoking Tobacco: Never Assessed Comments Unknown Sex and Gender Information Value Date Recorded Sex Assigned at Not on file Legal Sex Female 4:57 AM PATTERNMAKER PRESSURE CAST Gender Identity Not on file Sexual Orientation [...] NEW PRESCRIPTION, 03/22/2006. LAB ORDERS: Order number: [id number] Test Ordered: CULTURE, AEROBIC WOUND W/SMEAR 8992 493.90-ASTHMA UNSPECIFIED stable, enc flu vaccine avoid tob products RETURN VISIT : Patient instructed to return in 6 weeks. Electronically Signed by: Daniel Vasquez MD on March documented in this encounter Plan of Treatment Not on file documented as of this encounter Visit Diagnoses Not on filedocumented in this encounter Care Teams Order Dispatcher Chief Relationship Specialty Start Date End Date [facility], External Provider [address] [place] [address] PCP - General 10/22/11 documented as of this encounter
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
--- OUTSIDE RECORDS SUMMARY | 2024-09-27 10:46 | XMS_ITS | Encounter Summary ---
Author Organization [facility] Address [address] [place] [address] Care Team Providers Care Rate Inserter Name Role Phone Luis, External Provider Primary Care Provider Un available Encounter Details Date Type Department Care Team ([facility] Contact Info) Description 12/01/2004 Outpatient Historical [facility] Internal Medicine [address] [phone] Daniel Vasquez MD [address] [place] [phone] Social History Tobacco Use Types Packs/Day Years Used Date Smoking Tobacco: Never Assessed Comments Unknown Sex and Gender Information Value Date Recorded Sex Assigned at Not on file Legal Sex Female 4:57 AM BUDGET COORDINATOR Gender Identity Not on file Sexual Orientation [...] on filedocumented in this encounter Care Teams Rate Inserter Relationship Specialty Start Date End Date Luis, External Provider [address] [place] [address] PCP - General 10/22/11 documented as of this encounter
--- OUTSIDE RECORDS SUMMARY | 2024-09-27 10:46 | XMS_ITS | Encounter Summary ---
Author Organization [facility] Address [address] [place] [address] Care Team Providers Care Rpg Programmer Analyst Name Role Phone Luis, External Provider Primary Care Provider Un available Encounter Details Date Type Department Care Team (Late st Contact Info) Description 08/04/2003 Outpatient Historical [facility] Internal Medicine [address] [phone] Daniel Vasquez MD [address] [place] [phone] Social History Tobacco Use Types Packs/Day Years Used Date Smoking Tobacco: Never Assessed Comments Unknown Sex and Gender Information Value Date Recorded Sex Assigned at Not on file Legal Sex Female 4:57 AM MATERNAL FETAL PHYSICIAN Gender Identity Not on file Sexual Orientation Not on file documented as of this encounter Plan of Treatment Not on file documented as of this encounter Visit Diagnoses Not on filedocumented in this encounter Care Teams Rpg Programmer Analyst Relationship Specialty Start Date End Date Luis, External Provider [address] [place] [address] PCP - General 10/22/11 documented as of this encounter
--- OUTSIDE RECORDS SUMMARY | 2024-09-27 10:46 | XMS_ITS | Encounter Summary ---
Author Organization [facility] Address [address] [place] [address] Care Team Providers Care Ships Equipment Engineer Name Role Phone [facility], External Provider Primary Care Provider Un available Encounter Details Date Type Department Care Team (Late st Contact Info) Description 08/23/2004 Outpatient Historical [facility] Internal Medicine [address] [address] Daniel Vasquez MD [address] [place] [phone] Social History Tobacco Use Types Packs/Day Years Used Date Smoking Tobacco: Never Assessed Comments Unknown Sex and Gender Information Value Date Recorded Sex Assigned at Not on file Legal Sex Female 4:57 AM COMMERCIAL CRABBER Gender Identity Not on file Sexual Orientation Not on file documented as of this encounter Last Filed Vital Signs Vital Sign Reading Time Taken Comments Blood Pressure 120/70 08/23/2004 10:45 AM COMMERCIAL CRABBER Pulse - - Temperature 36.7 C (98.1 F) 08/23/2004 10:45 AM COMMERCIAL CRABBER Respiratory Rate - - Oxygen Saturation - - Inhaled Oxygen Concentration - - Weight 86.2 kg (190 lb) 08/23/2004 10:45 AM COMMERCIAL CRABBER Height - - Body Mass Index - - documented in this encounter Plan of Treatment Not on file documented as of this encounter Visit Diagnoses Not on filedocumented in this encounter Care Teams Ships Equipment Engineer Relationship Specialty Start Date End Date [facility], External Provider [address] [place] [address] PCP - General 10/22/11 documented as of this encounter
--- OUTSIDE RECORDS SUMMARY | 2024-09-27 10:46 | XMS_ITS | Clinical Summary ---
Author Organization [facility] Address [address] [place] [address] Phone Care Team Providers Care Dividend Clerk Name Role Phone Bertram Martinez MD Primary Care Provider [phone] Allergies Active Allergy Reactions Criticality Noted Date [...] Comments Blood Pressure 98/73 06/12/2020 12:01 PM EMPLOYEE COMMUNICATIONS MANAGER Pulse 79 06/12/2020 12:01 PM EMPLOYEE COMMUNICATIONS MANAGER Temperature 36.2 C (97.2 F) 06/12/2020 10:58 AM EMPLOYEE COMMUNICATIONS MANAGER Respiratory Rate 18 06/12/2020 12:01 PM EMPLOYEE COMMUNICATIONS MANAGER Oxygen Saturation 100% 06/12/2020 12:01 PM EMPLOYEE COMMUNICATIONS MANAGER Inhaled Oxygen Concentration - - Weight 68 kg (150 lb) 06/12/2020 10:58 AM EMPLOYEE COMMUNICATIONS MANAGER Height 175.3 cm (5' 9 ) 06/12/2020 10:58 AM EMPLOYEE COMMUNICATIONS MANAGER Body Mass Index 22.15 06/12/2020 10:58 AM EMPLOYEE COMMUNICATIONS MANAGER Plan of Treatment Health Maintenance Due Date [...] Relevant to Health Maintenance [place] [address] Care Teams Dividend Clerk Relationship Specialty Start Date End Date [place] [address] PCP - General Internal Medicine 09/09/18
--- OUTSIDE RECORDS SUMMARY | 2024-09-27 10:46 | XMS_ITS | Encounter Summary ---
Author Organization [facility] Address [address] [place] [address] Care Team Providers Care Tightener Name Role Phone [facility], External Provider Primary Care Provider Un available Encounter Details Date Type Department Care Team ([facility] Contact Info) Description 03/22/2006 Outpatient Historical [facility] Internal Medicine [address] [address] Daniel Vasquez MD [address] [place] [phone] Social History Tobacco Use Types Packs/Day Years Used Date Smoking Tobacco: Never Assessed Comments Unknown Sex and Gender Information Value Date Recorded Sex Assigned at Not on file Legal Sex Female 4:57 AM DECORATOR MANNEQUIN Gender Identity Not on file Sexual Orientation [...] on filedocumented in this encounter Care Teams Tightener Relationship Specialty Start Date End Date Luis, External Provider [address] [place] [address] PCP - General 10/22/11 documented as of this encounter
--- OUTSIDE RECORDS SUMMARY | 2024-09-27 10:46 | XMS_ITS | Encounter Summary ---
Author Organization [facility] Address [address] [place] [address] Care Team Providers Care Mechanic Assistant Name Role Phone [facility], External Provider Primary Care Provider Un available Encounter Details Date Type Department Care Team (Latest Contact Info) Description 11/28/2004 Outpatient Historical [facility] Daniel Vasquez MD [address] [place] [phone] LUMBAR DISC DISPLACEMENT (Primary Dx) Social History Tobacco Use Types Packs/Day Years Used Date Smoking Tobacco: Never Assessed Comments Unknown Sex and Gender Information Value Date Recorded Sex Assigned at Not on file 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
[2024-09-27 10:50] VITALS: BP 103/69; PULSE 70; RESP 16; TEMP 36.7; O2SAT 100
--- NOTE | 2024-09-27 11:51 | ED_ITS ---
HPI - Extremity Problem General Chief complaint: Extremity Problem,Nontraumatic Stated complaint: Injury to Left Foot/Toe Source: patient Mode of arrival: ambulatory Limitations: no limitations History of Present Illness HPI Narrative: Patient presents for evaluation of pain in the left great toe. 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 She indicates approximately 1 week ago she heard a crack in the left great toe when walking down steps. Since that time she has had severe pain in left great toe. She is not taking medication for symptoms other than Cymbalta and gabapentin which she takes for chronic pain. She reports numbness and tingling. Movement and weight-bearing make her symptoms worse. Related Data Home Medications ?Medication ?Instructions ?Recorded ?Confirmed ?Last Taken ?Type albuterol sulfate 90 mcg/actuation inhalation 09/04/24 Unknown History aerosol inhaler alprazolam 1 mg tablet mg 09/04/24 Unknown History buspirone 15 mg tablet mg 09/04/24 Unknown History duloxetine 60 mg capsule,delayed mg PO 09/04/24 Unknown History release gabapentin 300 mg capsule mg 09/04/24 Unknown History pantoprazole 40 mg tablet,delayed mg PO 09/04/24 Unknown History release tramadol 50 mg tablet mg 09/04/24 Unknown History Allergies Allergy/AdvReac Type Severity Reaction Status Date / Time codeine Allergy Severe DIFFICULTY Verified 09/27/24 11:02 BREATHING cyclobenzaprine Allergy Severe DIFFICULTY Verified 09/27/24 11:02 BREATHING hydrocodone Allergy Severe Rash Verified 09/27/24 11:02 meperidine Allergy Severe Difficulty Verified 09/27/24 11:02 Breathing morphine Allergy Severe BRADYCARDIA Verified 09/27/24 11:02 Sulfa (Sulfonamide Allergy Severe DIFFICULTY Verified 09/27/24 11:02 Antibiotics) BREATHING carisoprodol (From Soma) Allergy Unknown Verified 09/27/24 11:02 methadone Allergy Unknown Verified 09/27/24 11:02 nitrofurantoin (From Allergy Unknown Verified 09/27/24 11:02 Macrobid) Quinolones Allergy Unknown Verified 09/27/24 11:02 sulfamethoxazole (From Allergy Unknown Verified 09/27/24 11:02 Septra) trimethoprim Allergy Unknown Verified 09/27/24 11:02 ciprofloxacin AdvReac Intermediate MUSCLE Verified 09/27/24 11:02 CRAMPS, HALLUCINATIONS Review of Systems Review of Systems: CONSTITUTIONAL: Denies fever, chills, or sweats. EYES: Denies visual changes, redness, or discharge. ENT: Denies rhinorrhea, congestion, sore throat, or otalgia. CARDIOVASCULAR: Denies chest pain, palpitations, or edema. RESPIRATORY: Denies cough or dyspnea. GASTROINTESTINAL: Denies abdominal pain, nausea, vomiting, or diarrhea. GENITOURINARY: Denies dysuria or hematuria. SKIN: Denies rash or itching. MUSCULOSKELETAL: Reports left great toe pain. NEUROLOGIC: Reports chronic numbness and tingling in the bilateral hands and feet. Denies headache, dizziness, or weakness. PSYCHIATRIC: Denies anxiety or depression. [facility] Past Medical History Medical History Martha-Danlos syndrome Depression Surgical History Surgical History History of augmentation of both breasts Social History Social History Social History: Patient denies alcohol intake, uses marijuana for medical treatment, and does smoke. Daughter works at [employer] Smoking status: Current every day smoker Alcohol intake: current Gender identity (if verbalized by the patient): Female Course Course Emergency Course: This is a 44-year-old female who presented for evaluation of left great toe pain. X-ray negative for fracture. She does have arthritis on imaging. We discussed treatment options. She declined any medications. She was provided with a postop shoe. She should follow-up with her primary provider. Go to the ER for worsening symptoms. Patient in agreement with plan of care. Level of Care: Express Care Visit Vital Signs Vital signs: Vital Signs Temperature 36.7 C 09/27/24 10:50 Pulse Rate 70 09/27/24 10:50 Respiratory Rate 16 09/27/24 10:50 Blood Pressure 103/69 09/27/24 10:50 Pulse Oximetry 100 09/27/24 10:50 Oxygen Delivery Room Air 09/27/24 10:50 Temperature 36.7 C 09/27/24 10:50 Pulse Rate 70 09/27/24 10:50 Respiratory Rate 16 09/27/24 10:50 Blood Pressure 103/69 09/27/24 10:50 Pulse Oximetry 100 09/27/24 10:50 Oxygen Delivery Room Air 09/27/24 10:50 MDM - Extremity (Nontraumatic) Imaging Data Radiologist's impression: EXAMINATION: XR foot LT min 3V DATE: 09/27/2024 11:13 INDICATION: Pain at the metatarsophalangeal joints of the left foot. TECHNIQUE: Dorsoplantar, two oblique and lateral views of the left foot were obtained. COMPARISON: None. FINDINGS: Bone alignment is normal. No fracture. Mild osteoarthritis at the first metatarsophalangeal joint with mild nonuniform joint space narrowing and small marginal osteophyte at the lateral head of the first metatarsal. Remaining joint spaces are relatively preserved. No erosions to suggest an inflammatory arthritis. Small plantar calcaneal spur. Soft tissues are unremarkable. IMPRESSION: 1. Mild osteoarthritis at the first metatarsophalangeal joint. Discharge Plan Discharge Clinical Impression: Strain of great toe, left Patient Disposition: Home Condition: Stable Instructions: Antibiotic Form, Muscle Strain (ED) Patient Language: Welsh Prescriptions: No Action alprazolam 1 mg tablet pantoprazole 40 mg tablet,delayed release (DR/EC) PO gabapentin 300 mg capsule albuterol sulfate 90 mcg/actuation HFA aerosol inhaler INHALATION buspirone 15 mg tablet duloxetine 60 mg capsule,delayed release(DR/EC) PO tramadol 50 mg tablet omeprazole magnesium [Prilosec OTC] 20 mg tablet,delayed release (DR/EC) 20 mg PO BID Qty: 60 0RF Follow-up/Referrals: Harms,Bertram Sarah M.D. [Primary Care Provider] - Time of Disposition: 11:30
== END 2024-09-27 11:40 | disposition home or self-care (01) ==
PROVIDERS: Emergency Provider Nurse Practitioner; PCP Family Medicine
DX: S96.912A Strain of unspecified muscle and tendon at ankle and foot level, left foot, initial encounter (principal); X58.XXXA Exposure to other specified factors, initial encounter; F17.200 Nicotine dependence, unspecified, uncomplicated; Q79.60 Ehlers-Danlos syndrome, unspecified
CPT/HCPCS: 73630; 99213; G0463

== ENCOUNTER 2024-12-13 18:21 | Emergency (ER) | payer MEDICARE, SELFPAY ==
--- OUTSIDE RECORDS SUMMARY | 2024-12-13 18:24 | XMS_ITS | Encounter Summary ---
Author Organization [facility] Address [address] [place] [address] Care Team Providers Care Credit Collections Analyst Name Role Phone [facility], External Provider Primary Care Provider Un available Encounter Details Date Type Department Care Team (Late st Contact Info) Description 08/23/2004 Outpatient Historical [facility] Internal Medicine [address] [address] Daniel Vasquez MD [address] [place] [phone] Social History Tobacco Use Types Packs/Day Years Used Date Smoking Tobacco: Never Assessed Comments Unknown Sex and Gender Information Value Date Recorded Sex Assigned at Not on file Legal Sex Female 4:57 AM DIRECTOR DIABETES Gender Identity Not on file Sexual Orientation Not on file documented as of this encounter Last Filed Vital Signs Vital Sign Reading Time Taken Comments Blood Pressure 120/70 08/23/2004 10:45 AM DIRECTOR DIABETES Pulse - - Temperature 36.7 C (98.1 F) 08/23/2004 10:45 AM DIRECTOR DIABETES Respiratory Rate - - Oxygen Saturation - - Inhaled Oxygen Concentration - - Weight 86.2 kg (190 lb) 08/23/2004 10:45 AM DIRECTOR DIABETES Height - - Body Mass Index - - documented in this encounter Plan of Treatment Not on file documented as of this encounter Visit Diagnoses Not on filedocumented in this encounter Care Teams Credit Collections Analyst Relationship Specialty Start Date End Date [facility], External Provider [address] [place] [address] PCP - General 10/22/11 documented as of this encounter
--- OUTSIDE RECORDS SUMMARY | 2024-12-13 18:24 | XMS_ITS | Encounter Summary ---
Author Organization [facility] Address [address] [place] [address] Care Team Providers Care Cut Out Operator Name Role Phone [facility], External Provider Primary Care Provider Un available Encounter Details Date Type Department Care Team (Late st Contact Info) Description 12/14/2003 Outpatient Historical [facility] Internal Medicine [address] [phone] Daniel Vasquez MD [address] [place] [phone] Social History Tobacco Use Types Packs/Day Years Used Date Smoking Tobacco: Never Assessed Comments Unknown Sex and Gender Information Value Date Recorded Sex Assigned at Not on file Legal Sex Female 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
--- OUTSIDE RECORDS SUMMARY | 2024-12-13 18:24 | XMS_ITS | Referral Summary ---
Author Organization [facility] [address] [facility] lt Address [address] [place] [address] Care Team Providers Care Loader Name Role Phone Bertram Martinez MD Primary Care Provider [phone] Encounters Date Type Department Care Team Description 12/11/2024 Orders Only [facility] [address] [place] [address] Bertram Martinez MD 11/04/2024 Results Follow-Up [facility] [address] [address] Nadira Burden NP CBC with auto differential, Comprehensive metabolic panel, Hemoglobin A1c, Additional followed-up results: 7 11/04/2024 3:00 PM CDT Office Visit [facility] Primary Care at [address] [address] Bertram Martinez MD Recurrent syncope (Primary Dx); Martha-Danlos syndrome; Gastroesophageal reflux disease, unspecified whether esophagitis present; Posttraumatic stress disorder 11/03/2024 9:55 AM CDT Lab [facility] [address] [place] [address] EDS (Martha-Danlos syndrome); Diabetes mellitus screening; Other iron deficiency anemia; Fatigue, unspecified type 10/31/2024 Telephone [facility] [address] [place] [address] Bertram Martinez MD 10/06/2024 11:09 AM CDT - 10/06/2024 11:59 PM CDT Hospital Encounter [facility] [id number] [place] [id number] Discharge Disposition: Discharge to home or self care 10/06/2024 11:08 AM CDT - 10/06/2024 11:59 PM CDT Hospital Encounter [facility] [id number] [place] [address] Discharge Disposition: Discharge to home or self care 10/06/2024 10:00 AM CDT Office Visit [facility] [address] Medical Office Building [address] [place] [address] Abby Rutherford MD Thumb pain, left (Primary Dx); 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; Martha-Danlos syndrome 09/27/2024 Orders Only [facility] Health Information Management [address] [place] [address] Scanning, Provider from Last 3 Months Allergies Active Allergy Reactions Criticality Noted Date Comments Acetaminophen Venom-Honey Bee Anaphylaxis High 09/11/2024 Ciprofloxacin Codeine Cyclobenzaprine Hydrocodone Hydrocodone-Acetaminophen Nitrofurantoin Monohyd/M-Cryst Anaphylaxis High 11/2020 Meperidine Methadone Unknown 02/03/2024 Morphine Carisoprodol Unknown 06/30/2019 Sulfa (Sulfonamide Antibiotics) Trimethoprim Unknown 02/03/2024 Medications linaCLOtide (Linzess) 145 mcg capsule TAKE 1 CAPSULE(145 MCG) BY MOUTH DAILY 100 capsule [address] (VOLTAREN) 75 mg EC tablet Take 1 tablet (75 mg total) by mouth 2 (two) times a day 60 tablet 024 Active busPIRone (BUSPAR) 15 mg tablet TAKE 1 TABLET BY MOUTH THREE TIMES DAILY 90 tablet 024 Active bisacodyl EC (DULCOLAX EC) 5 mg EC tabletIndications :constipation Take 1 tablet (5 mg total) by mouth daily as needed for constipation Active albuterol HFA (PROVENTIL HFA,VENTOLIN HFA,PROAIR HFA) [...] in 2-6 months 2 each 025 Active famotidine (PEPCID) 20 mg tablet Take 1 tablet (20 mg total) by mouth 2 (two) times a day 20 tablet 025 2025 Active EPINEPHrine 0.3 mg/0.3 mL auto-injection syringeIndication s:Anaphylaxis Inject 0.3 mL (0.3 mg total) into the muscle as instructed as needed for anaphylaxis 2 each [address] (PROTONIX) 40 mg EC tablet TAKE 1 TABLET(40 MG) BY MOUTH DAILY 100 tablet [address] (CYMBALTA) 60 mg capsule TAKE 1 CAPSULE BY MOUTH DAILY 100 capsule 025 Active ondansetron ODT (ZOFRAN-ODT) 4 mg disintegrating tabletIndications :IBS and chronic vomtiing Dissolve 1 tablet on the tongue every 4 hours as needed for nausea or vomiting 15 tablet 5 025 Active triamcinolone (KENALOG) 0.1 % cream APPLY TOPICALLY TO THE AFFECTED AREA 1 TO 2 TIMES DAILY NEEDED. AVOID FACE AND GROIN 30 g 025 Active ALPRAZolam (XANAX) 1 mg tablet [...] take with alprazolam) for pain 25 tablet 06/13/2 025 Active gabapentin (NEURONTIN) 300 mg capsule TAKE 1 CAPSULE BY MOUTH THREE TIMES DAILY 90 capsule 1 Active cephalexin (KEFLEX) 500 mg capsule Take 1 capsule (500 mg total) by mouth 2 (two) times a day for 10 days 20 capsule 025 2024 Active methylPREDNISolon e (MEDROL DOSEPACK) 4 mg Dosepack Take as directed on package. 21 tablet 025 2024 Active gabapentin (NEURONTIN) 300 mg capsule TAKE 1 CAPSULE BY MOUTH THREE TIMES DAILY 90 capsule 1 025 2024 Discontinued triamcinolone (KENALOG) 0.1 % cream APPLY TOPICALLY TO THE AFFECTED AREA 1 TO 2 TIMES DAILY NEEDED. AVOID FACE AND GROIN 30 g 025 2024 Discontinued(R eorder) ALPRAZolam (XANAX) 1 mg tablet Take 1 [...] Active Problems Problem Noted Date Diagnosed Date Recurrent syncope 11/05/2024 Screening mammogram for breast cancer 08/03/2024 Assessment & Plan (08/03/2024 8:31 AM RECREATION SUPERVISOR): Breat cancer screenign and will montior erpsonse. Need for influenza vaccination 08/03/2024 Assessment & Plan (08/03/2024 8:31 AM RECREATION SUPERVISOR): Udpated. Need for pneumococcal 20-valent conjugate vaccin ation 08/03/2024 Assessment & Plan (08/03/2024 8:32 AM RECREATION SUPERVISOR): updated Regurgitation of food 08/03/2024 Assessment & Plan (08/03/2024 8:32 AM RECREATION SUPERVISOR): As above. Referral to GI for evaluatoin. Rectocele 08/03/2024 Assessment & Plan (08/03/2024 8:32 AM RECREATION SUPERVISOR): As above. Chronic instability of metac arpophalangeal joint of left thumb 08/03/2024 Assessment & Plan (08/03/2024 8:32 AM RECREATION SUPERVISOR): Referral to hand surgery. Sig laxity noted and discomfort and will follow response. 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 Myogenic ptosis of bilateral eyelids 06/30/2023 Assessment & Plan (08/25/2023 9:11 AM CDT): Marked improvement following reduced impact from previous neurotoxin treatment. She demonstrates good MRD1 without ptosis. We have discussed these findings and have elected to defer upper eyelid surgery. She will return as needed. Assessment & Plan (06/30/2023 11:06 PM RECREATION SUPERVISOR): Mild ptosis of both eyes. Recent Botox [...] 03/21/2021 Assessment & Plan (08/03/2024 8:31 AM RECREATION SUPERVISOR): Referral to EGD. Aware of complexity with [...] Surgery scheduled for 12/31/18 at [facility] w/Dr Balta Peres for: breast augmentation, abdominoplasty & liposuction. Mrs Giles states that EKG & labs completed at [place] [facility] yesterday. Office has called to get [...] week 11/06/2022 How often [facility] attend [facility] or [facility] services? More than 4 times per year 11/06/2022 Do you belong to any clubs o r organizations such as lutheran groups, unions, fraternal or athletic groups, or [...] points, staff should administer the PHQ-9) 0 11/04[facility]2024 [facility] Questionnaire Answer Date Recorded [...] on file Legal Sex Female 12:52 AM RECREATION SUPERVISOR Gender Identity Not on file Sexual Orientation Not on file Last Filed Vital Signs Vital Sign Reading Time Taken Comments Blood Pressure 116/82 11/04/2024 3:15 PM CDT Pulse 65 11/04/2024 3:15 PM CDT Temperature 37.2 C (99 F) 11/04/2024 3:15 PM CDT Respiratory Rate 12 09/11/2024 5:45 PM CDT Oxygen Saturation 99% 11/04/2024 3:15 PM CDT Inhaled Oxygen Concentration - - Weight 67.9 kg (149 lb 12.8 oz) 11/04/2024 3:15 PM CDT Height 175.3 cm (5' 9) 11/04/2024 3:15 PM CDT Body Mass Index 22.12 11/04/2024 3:15 PM CDT Plan of Treatment Not on file Procedures Procedure Name Priority Date/Time Associated Diagnosis Comments EGFR Routine 11/03/2024 9:52 AM CDT EDS (Martha-Danlos syndrome) DIFFERENTIAL AUTO Routine 11/03/2024 9:5 2 AM CDT EDS (Martha-Danlos syndrome) DHEA Routine 11/03/2024 9:52 AM CDT Fatigue, unspecified type CORTISOL Routine 11/03/2024 9:52 AM CDT Fatigue, unspecified type TOTAL TESTOSTERONE Routine 11/03/2024 9: 52 AM CDT Fatigue, unspecified type ESTROGENS, FRACTIONATED Routine 11/03/2024 9:52 AM CDT Fatigue, unspecified type IRON PROFILE W/ IBC Routine 11/03/2024 9 :52 AM CDT Other iron deficiency anemia HEMOGLOBIN A1C Routine 11/03/2024 9:52 AM CDT Diabetes mellitus screening COMPREHENSIVE METABOLIC PANEL Routine 11/03/2024 9:52 AM CDT EDS (Martha-Danlos syndrome) CBC WITH AUTO DIFFERENTIAL Routine 11/03/2024 9:52 AM CDT EDS (Martha-Danlos syndrome) XR HAND LEFT 3 OR MORE VIEWS Schedule Routine, Read Routine (OP Routine) 10/06/2024 11:26 AM CDT Thumb pain, left XR WRIST LEFT 3 OR MORE VIEWS Schedule Routine, Read Routine (OP Routine) 10/06/2024 11:26 AM CDT Thumb pain, left SCAN - RADIOLOGY/IMAGING 09/27/2024 HEPATITIS PANEL, ACUTE Routine 04/16/2024 3:00 PM RECREATION SUPERVISOR Screening examination for STI DIAGNOSTIC MAMMOGRAM BILATERAL W ALFREDO W IMPLANTS Schedule Routine, Read Routine (OP Routine) 01/11/2023 2:11 PM CDT Abnormal mammogram from Last 3 Months or Most Recently Relevant to Health Maintenance Results * eGFR (11/03/2024 9:52 AM CDT) eGFR >90 >=60 mL/min/1. 73 m2 Comment: Interpretive Data Reference Interval Normal >/= 90 mL/min/1.73m2 Mildly decreased* 60 - 89 mL/min/1.73m2 Mildly to moderately decreased 45 - 59 mL/min/1.73m2 Moderately to severely decreased 30 - 44 mL/min/1.73m2 Severely decreased 15 - 29 mL/min/1.73m2 Kidney Failure < 15 mL/min/1.73m2 *Relative to young adult level Estimated glomerular filtration rate is determined by the 2020 CKD-EPI equation recommended by the National Kidney Foundation (A Unifying Approach to GFR Estimation: Recommendations of the NKF-ASK Task Force on Reassessing the Inclusion of Race in Diagnosing Kidney Disease, JASN 2020). The CKD-EPI equation should not be used for patients with unstable renal function and has not been validated in children and those over 70. Current interpretive data was last reviewed 2021. Testing performed by: [address], [address] Blood 11/03/2024 9:52 AM CDT 11/03/2024 5:04 PM CDT Nadira Burden SPA CONSULTANT LAB BLOOD ORDERABLES Final Re sult [facility] 1 [facility] [place] [address] * Differential, auto (11/03/2024 9:52 AM CDT) Neutrophil abs 1.54 1.50 - 6.50 K/cumm Comment:Testing performed by : [address], [address] Imm gran abs 0.00 0.00 - 0.10 K/cumm [facility] ([facility]) Comment:Testing performed by : [address], [address] Lymphocyte abs 2.69 0.80 - 3.30 K/cumm [facility] ([facility]) Comment:Testing performed by : [address], [address] Monocyte abs 0.25 0.20 - 0.80 K/cumm [facility] ([facility]) Comment:Testing performed by : [address], [address] Eosinophil abs 0.17 0.00 - 0.50 K/cumm [facility] ([facility]) Comment:Testing performed by : [address], [address] Basophil abs 0.02 0.00 - 0.10 K/cumm [facility] ([facility]) Comment:Testing performed by : [address], [address] Neutrophil pct 33.0 % [facility] ([facility]) Comment: Interpretive Data Percent cell count reference ranges are not reported, since discordance with absolute values may lead to misinterpretation of CBC data. Current Interpretive Data was last revised on 2017. Testing performed by: [address] [address] Imm gran pct 0.0 % [facility] ([facility]) Comment: Interpretive Data Percent cell count reference ranges are not reported, since discordance with absolute values may lead to misinterpretation of CBC data. Current Interpretive Data was last revised on 2017. Testing performed by: [facility], [address] [place] [address]., [address] Lymphocyte pct 57.6 % [facility] ([facility]) Comment: Interpretive Data Percent cell count reference ranges are not reported, since discordance with absolute values may lead to misinterpretation of CBC data. Current Interpretive Data was last revised on 2017. Testing performed by: [facility], [address] [place] [address]., [address] Monocyte pct 5.4 % [facility] ([facility]) Comment: Interpretive Data Percent cell count reference ranges are not reported, since discordance with absolute values may lead to misinterpretation of CBC data. Current Interpretive Data was last revised on 2017. Testing performed by: [facility], [address] [place] [address]., [address] Eosinophil pct 3.6 % [facility] ([facility]) Comment: Interpretive Data Percent cell count reference ranges are not reported, since discordance with absolute values may lead to misinterpretation of CBC data. Current Interpretive Data was last revised on 2017. Testing performed by: [facility], [address] [place] [address]., [id number] Basophil pct 0.4 % [facility] ([facility]) Comment: Interpretive Data Percent cell count reference ranges are not reported, since discordance with absolute values may lead to misinterpretation of CBC data. Current Interpretive Data was last revised on 2017. Testing performed by: [address] [address] Blood 11/03/2024 9:52 AM CDT 11/03/2024 4:45 PM CDT us Nadira Burden NP LAB BLOOD ORDERABLES Final Re sult [facility] ([facility]) 1 [facility] Department [place] [address] * Iron profile w/ IBC (11/03/2024 9:52 AM CDT) [facility] Iron 78 35 - 145 mcg/dl Comment:Testing performed by : [facility], [address] [place] [address], [address] TIBC 314 250 - 400 mcg/dL [facility] ([facility]) Comment:Testing performed by : [facility], [address] [place] [address], [address] Transferrin saturation 25 20 - 50 % [facility] ([facility]) Comment:Testing performed by : [address], [address] Blood 11/03/2024 9:52 AM CDT 11/03/2024 4:45 PM CDT Nadira Burden SPA CONSULTANT LAB BLOOD ORDERABLES Final Re sult [facility] ([facility]) 1 [facility] Department [place] [address] * (ABNORMAL) CBC with auto differential (11/03/2024 9:52 AM CDT) [facility] WBC 4.67 3.80 - 9.90 K/cumm Comment:Testing performed by : [address], [address] Hgb 12.1 11.9 - 15.5 g/dL [facility] ([facility]) Comment:Testing performed by : [address], [address] Hct 38.9 35.6 - 45.5 % [facility] ([facility]) Comment:Testing performed by : [address] [address] Plt 159 150 - 400 K/cumm [facility] ([facility]) Comment:Testing performed by : [address], [address] MPV 12.8(H) 9.1 - 12.3 fL [facility] ([facility]) Comment:Testing performed by : [address], [address] RBC 4.01 3.90 - 5.20 M/cumm [facility] ([facility]) Comment:Testing performed by : [facility], [address] [place] [address], [address] MCV 97.0(H) 81.3 - 96.4 fL [facility] ([facility]) Comment:Testing performed by : [facility], [address] [place] [address], [address] MCH 30.2 27.1 - 33.3 pg [facility] ([facility]) Comment:Testing performed by : [facility], [address] [place] [address], [address] MCHC 31.1(L) 32.3 - 35.7 g/dL [facility] ([facility]) Comment:Testing performed by : [facility], [address] [place] [address], [address] RDW CV 12.7 11.1 - 14.9 % [facility] ([facility]) Comment:Testing performed by : [address], [address] RDW SD 46.0 35.7 - 48.1 fL [facility] ([facility]) Comment:Testing performed by : [facility], [address] [place] [address], [address] NRBC abs 0.00 0.00 - 0.01 K/cumm [facility] ([facility]) Comment:Testing performed by : [facility], [address] [place] [address], [address] Blood 11/03/2024 9:52 AM CDT 11/03/2024 4:45 PM CDT us Nadira Burden SPA CONSULTANT LAB BLOOD ORDERABLES Final Re sult [facility] ([facility]) 1 [facility] Department of Laboratories [place], [place] [id number] * Estrogens, fractionated (11/03/2024 9:52 AM CDT) [facility] Estrone 59 pg/mL [facility] Comment: REFERENCE VALUE Premenopausal :17-200 Postmenopausal : 7-40 ADDITIONAL INFORMATION This test was developed and its performance characteristics determined by [facility] in a manner consistent with CLIA requirements. This test has not been cleared or approved by the U.S. Food and Drug Administration. Testing performed by: [facility], [address] [place] [address], [id number] Estradiol 91 pg/mL [facility] ([facility]) Comment: REFERENCE VALUE Premenopausal: 15-350 (E2 levels vary widely through the menstrual cycle.) Postmenopausal: <10 ADDITIONAL INFORMATION This test was developed and its performance characteristics determined by [facility] in a manner consistent with CLIA requirements. This test has not been cleared or approved by the U.S. Food and Drug Administration. Test Performed by: [facility] [address] [address] Service Captain: Paul Scherer Ph.D.; CLIA# [id number] Testing performed by: [address], [address] Blood 11/03/2024 9:52 AM CDT 11/03/2024 4:45 PM CDT us Nadira Burden NP LAB BLOOD ORDERABLES Final Re sult [facility] 1 [facility] Department [place] [address] [facility] * DHEA (11/03/2024 9:52 AM CDT) DHEA 2.2 <8.0 ng/mL [facility] Comment: ADDITIONAL INFORMATION This test was developed and its performance characteristics determined by [facility] in a manner consistent with CLIA requirements. This test has not been cleared or approved by the U.S. Food and Drug Administration. Test Performed by: [facility] [address] [place] [address] Service Captain: Paul Scherer Ph.D.; CLIA# [id number] Testing performed by: [facility], [address] [place] [address], [address] Blood 11/03/2024 9:52 AM CDT 11/03/2024 4:45 PM CDT Nadira Burden NP LAB BLOOD ORDERABLES Final Re sult Performing Organization Address [facility] Co de Phone Number [facility] [address] [facility] [address] [facility] * Total testosterone (11/03/2024 9:52 AM CDT) Testosterone 11 8 - 48 ng/dL Comment:Testing performed by : [facility], [address] [place] [address], [id number] Blood 11/03/2024 9:52 AM CDT 11/03/2024 4:45 PM CDT Nadira Burden NP LAB BLOOD ORDERABLES Final Re sult Performing Organization Address [facility] Co de Phone Number [facility] [address] [place] [address] * Hemoglobin A1c (11/03/2024 9:52 AM CDT) Hgb A1C 5.2 4.0 - 5.6 % Comment:Testing performed by : [facility], [address] [place] [address], [address] Estimated Average Glucose 103 mg/dL [facility] ([facility]) Comment: The ADA recommends reporting an estimated Average Glucose (eAG) with all Hemoglobin A1c results using the equation derived from a study of 507 normal and diabetic adults. Minority populations were underrepresented and children were not included. (Diabetes Care 31:0205-9851, 2008). The eAG is not equivalent to a fasting glucose. Testing performed by: [facility], [address] [place] [address]., [address] Blood 11/03/2024 9:52 AM CDT 11/03/2024 4:45 PM CDT Nadira Burden LAB BLOOD ORDERABLES Final Re sult Performing Organization Address [facility] Co de Phone Number [facility] 1 [facility] [place] [address] * Cortisol (11/03/2024 9:52 AM CDT) Cortisol 15.2 4.8 - 19.5 mcg/dl Comment: Interpretive Data Normal Range: 4.8 - 19.5 mcg/dL; Evening: Half of morning value. This analyte undergoes marked diurnal variation. Ranges indicated apply to morning specimens. Current interpretive data was last revised 2018. Testing performed by: [facility], [address] [place] [address], [id number] Blood 11/03/2024 9:52 AM CDT 11/03/2024 4:45 PM CDT Nadira Burden NP LAB BLOOD ORDERABLES Final Re sult Performing Organization Address [facility]/ZIP Co de Phone Number [facility] ([facility]) 1 [facility] [place] [address] * Comprehensive metabolic panel (11/03/2024 9:52 AM CDT) Sodium 142 135 - 145 mmol/L Comment:Testing performed by : [address] [address] Potassium, pl 3.9 3.3 - 4.9 mmol/L [facility] ([facility]) Comment:Testing performed by : [facility], [address] [place] [address]., [address] Chloride 107 97 - 110 mmol/L [facility] ([facility]) Comment:Testing performed by : [address] [address] CO2 27 22 - 32 mmol/L [facility] ([facility]) Comment:Testing performed by : [address], [address] Anion gap 8 2 - 15 mmol/L [facility] ([facility]) Comment:Testing performed by : [address], [address] BUN 9 6 - 25 mg/dL [facility] ([facility]) Comment:Testing performed by : [address], [address] Creatinine 0.65 0.60 - 1.10 mg/dL [facility] ([facility]) Comment:Testing performed by : [address], [address] Glucose 92 70 - 199 mg/dL [facility] ([facility]) Comment: Interpretive Data Fasting glucose >/= 126 mg/dl is diagnostic for diabetes. Fasting is defined as no caloric intake for at least 8 hours. Fasting glucose between 100 mg/dl to 125 mg/dl is diagnostic of prediabetes. In a patient with classic symptoms of hyperglycemia or hyperglycemic crisis, a random glucose >/= 200 mg/dl is diagnostic for diabetes. In the absence of unequivocal hyperglycemia, results should be confirmed by repeat testing. The classification and Diagnosis of Diabetes Diabetes Care 2021; 46: S19-S40. Current interpretive data was last revised 2022. Testing performed by: [address] [address] Calcium 9.6 8.5 - 10.3 mg/dL [facility] ([facility]) Comment:Testing performed by : [address] [address] Bilirubin, total 0.2 0.1 - 1.2 mg/dL [facility] ([facility]) Comment:Testing performed by : [address], [address] Protein, pl 6.9 6.5 - 8.5 g/dL [facility] ([facility]) Comment:Testing performed by : [facility], [address] [place] [address]., [address] Albumin 4.3 3.5 - 5.0 g/dL [facility] ([facility]) Comment:Testing performed by : [facility], [address] [place] [address]., [address] Alk phos 59 40 - 130 Units/L [facility] ([facility]) Comment:Testing performed by : [facility], [address] [place] [address]., [address] ALT 16 7 - 45 Units/L [facility] ([facility]) Comment:Testing performed by : [facility], [address] [place] [address]., [id number] AST 26 10 - 45 Units/L [facility] ([facility]) Comment:Testing performed by : [facility], [address] [place] [address]., [id number] Blood 11/03/2024 9:52 AM CDT 11/03/2024 4:45 PM CDT Nadira Burden NP LAB BLOOD ORDERABLES Final Re sult [facility] 1 [facility] Department [place] [address] * XR Hand Left 3 or More Views (10/06/2024 11:26 AM CDT) Anatomical Region Laterality Modality Upper Extremities, Hand Left Computed Radiography 10/06/2024 11:4 2 AM CDT Impressions 10/06/2024 11:42 AM CDT Normal study. Electronically signed by: Low Johnson M.D. Narrative 10/06/2024 11:42 AM CDT EXAMINATION: XR HAND LEFT 3 OR MORE VIEWS HISTORY: Painful thumb following injury FINDINGS: There is normal bone alignment without fracture or dislocation. No significant degenerative changes. No destructive bone lesions are seen. No soft tissue abnormalities are identified. Procedure Note Low Johnson MD - 10/06/2024 EXAMINATION: XR HAND LEFT 3 OR MORE VIEWS HISTORY: Painful thumb following injury FINDINGS: There is normal bone alignment without fracture or dislocation. No significant degenerative changes. No destructive bone lesions are seen. No soft tissue abnormalities are identified. IMPRESSION: Normal study. Electronically signed by: Low Johnson M.D. Abby Rutherford MD [facility] XR PROCEDURES Final Result * XR Wrist Left 3 or More Views (10/06/2024 11:26 AM CDT) Anatomical Region Laterality Modality Upper Extremities, Wrist Left Compute d Radiography 10/06/2024 11:4 3 AM CDT Impressions 10/06/2024 11:43 AM CDT Normal study. Electronically signed by: Low Johnson M.D. Narrative 10/06/2024 11:43 AM CDT EXAMINATION: XR WRIST LEFT 3 OR MORE VIEWS HISTORY: Injury pain FINDINGS: There is normal bone alignment without fracture or dislocation. No significant degenerative changes. No destructive bone lesions are seen. No soft tissue abnormalities are identified. Procedure Note Low Johnson MD - 10/06/2024 EXAMINATION: XR WRIST LEFT 3 OR MORE VIEWS HISTORY: Injury pain FINDINGS: There is normal bone alignment without fracture or dislocation. No significant degenerative changes. No destructive bone lesions are seen. No soft tissue abnormalities are identified. IMPRESSION: Normal study. Electronically signed by: Low Johnson M.D. Abby Rutherford MD [facility] XR PROCEDURES Final Result * SCAN - RADIOLOGY/IMAGING (09/27/2024) Anatomical Region Laterality Modality Other us Provider Scanning Final Result * Hepatitis panel, acute Blood (04/16/2024 3:00 PM RECREATION SUPERVISOR) Hep A IgM Nonreactive Nonreactive Comment: Interpretive Data: If Hep A IgM Ab is reported as Equivocal, a new sample should be drawn in two weeks for testing. Current interpretive data was last revised on 19. Hep B core IgM Nonreactive Nonreactive [facility] Comment: Interpretive Data If HepB Core IgM [...] Nonreactive Nonreactive [facility] Blood 04/16/2024 3:00 PM RECREATION SUPERVISOR 04/16/2024 8:17 PM RECREATION SUPERVISOR us Bertram Martinez MD LAB MICROBIOLOGY - [facility] L ORDERABLES Final Result [facility] [id number] Department [place] [address] * Diagnostic Mammogram Bilateral W Alfredo W [...] breast is no longer seen. Kimi Bowie SPA CONSULTANT IMG MAMMO PROCEDURES Final Result from Last 3 Months or Most Recently Relevant to Health Maintenance Insurance MEDICARE MEDICARE MEDICARE Advance Directives For more information, please contact: [phone] * Full Code (Latest Code Status on File) Date Activated Date Inactivated Comments 04/07/2021 9:37 AM 04/07/2021 3:59 PM Care Teams Loader Relationship Specialty Start Date End Date Bertram Martinez MD [address] [place] [address] PCP - General 09/01/16
--- OUTSIDE RECORDS SUMMARY | 2024-12-13 18:24 | XMS_ITS | Encounter Summary ---
Author Organization [facility] Address [address] [place] [address] Care Team Providers Care Distribution Field Technician Name Role Phone [facility], External Provider Primary Care Provider Un available Encounter Details Date Type Department Care Team (Late st Contact Info) Description 01/08/2006 Orders Only [facility] Internal Medicine [address] [phone] Daniel Vasquez MD [address] [place] [phone] Social History Tobacco Use Types Packs/Day Years Used Date Smoking Tobacco: Never Assessed Comments Unknown Sex and Gender Information Value Date Recorded Sex Assigned at Not on file Legal 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 380.10-OTITIS EXTERNA MEDICATIONS: CORTISPORIN OTIC SOLUTION 3.5-13907-5, DIRECTED, 10 Duration/Days Supply, status: NEW PRESCRIPTION, 01/08/2006, Comment: 4 gtts qid x 10d. 216.9-SKIN BENIGN NEOPLASM SITE UNSPECIFIED refer derm SPECIALTY REFERRAL: DERMATOLOGY Dr. Liana Price ph: [phone]. PREVENTIVE COUNSELING The patient was counseled regarding [...] on filedocumented in this encounter Care Teams Distribution Field Technician Relationship Specialty Start Date End Date [facility], External Provider [address] [place] [address] PCP - General 10/22/11 documented as of this encounter
--- OUTSIDE RECORDS SUMMARY | 2024-12-13 18:24 | XMS_ITS | Encounter Summary ---
Author Organization [facility] Address [address] [place] [address] Care Team Providers Care Feed Mill Operator Name Role Phone [facility], External Provider Primary Care Provider Un available Encounter Details Date Type Department Care Team (Late st Contact Info) Description 03/22/2006 Orders Only [facility] Internal Medicine [address] [phone] Danile Vasquez MD [address] [place] [phone] Social History Tobacco Use Types Packs/Day Years Used Date Smoking Tobacco: Never Assessed Comments Unknown Sex and Gender Information Value Date Recorded Sex Assigned at Not on file 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 LAB ORDERS: Order number: [id number] Test Ordered: CULTURE, AEROBIC WOUND W/SMEAR 8992 493.90-ASTHMA UNSPECIFIED stable, enc flu vaccine avoid tob products RETURN VISIT : Patient instructed to return in 6 weeks. Electronically Signed by: Daniel Vasquez MD on March documented in this encounter Plan of Treatment Not on file documented as of this encounter Visit Diagnoses Not on filedocumented in this encounter Care Teams Feed Mill Operator Relationship Specialty Start Date End Date [facility], External Provider [address] [place] [address] PCP - General 10/22/11 documented as of this encounter
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
--- OUTSIDE RECORDS SUMMARY | 2024-12-13 18:24 | XMS_ITS | Encounter Summary ---
Author Organization [facility] Address [address] [place] [address] Care Team Providers Care Gps Field Data Collector Name Role Phone [facility] [place], External Provider Primary Care Provider Un available Encounter Details Date Type Department Care Team (Late st Contact Info) Description 01/08/2006 Outpatient Historical [facility] Internal Medicine [address] [phone] Daniel Vasquez MD [address] [place] [phone] Social History Tobacco Use Types Packs/Day Years Used Date Smoking Tobacco: Never Assessed Comments Unknown Sex and Gender Information Value Date Recorded Sex Assigned at Not on file Legal Sex Female 4:57 AM 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
--- OUTSIDE RECORDS SUMMARY | 2024-12-13 18:24 | XMS_ITS | Clinical Summary ---
Author Organization [facility] Address [address] [place] [address] Phone Care Team Providers Care Cattle Brander Name Role Phone Bertram Martinez MD Primary Care Provider [phone] Allergies Active Allergy Reactions Criticality Noted Date [...] Comments Blood Pressure 98/73 06/12/2020 12:01 PM ELECTRONIC COILS SUPERVISOR Pulse 79 06/12/2020 12:01 PM ELECTRONIC COILS SUPERVISOR Temperature 36.2 C (97.2 F) 06/12/2020 10:58 AM ELECTRONIC COILS SUPERVISOR Respiratory Rate 18 06/12/2020 12:01 PM ELECTRONIC COILS SUPERVISOR Oxygen Saturation 100% 06/12/2020 12:01 PM ELECTRONIC COILS SUPERVISOR Inhaled Oxygen Concentration - - Weight 68 kg (150 lb) 06/12/2020 10:58 AM ELECTRONIC COILS SUPERVISOR Height 175.3 cm (5' 9) 06/12/2020 10:58 AM ELECTRONIC COILS SUPERVISOR Body Mass Index 22.15 06/12/2020 10:58 AM ELECTRONIC COILS SUPERVISOR Plan of Treatment Health Maintenance Due Date Last Done Comments Hepatitis C Virus (HCV) Screening 1981 TdaP Immunization 1981 Human Papillomavirus (HPV) Immunization (1 - 3-dose series) 02/10/1996 Hepatitis B Immunization (1 of 3 - 19+ 3-dose series) 02/10/2000 SARS-COV-2 Immunization ( season) 2024 Influenza Immunization (#1) 02/02/202503/05, 03/20/2018, 05/04/2015, Additional history exists Respiratory Syncytial Virus (RSV) Immunization (Adult) (1 [...] Health Maintenance Insurance MEDICAID [place] Care Teams Cattle Brander Relationship Specialty Start Date End Date [place] [address] PCP - General Internal Medicine 09/09/18
--- OUTSIDE RECORDS SUMMARY | 2024-12-13 18:24 | XMS_ITS | Encounter Summary ---
Author Organization [facility] Address [address] [place] [address] Care Team Providers Care Tailor Men'S Ready To Wear Name Role Phone [facility], External Provider Primary Care Provider Un available Encounter Details Date Type Department Care Team (Latest Contact Info) Description 11/28/2004 Outpatient Historical [facility] Daniel Vasquez MD [address] [place] [phone] LUMBAR DISC DISPLACEMENT (Primary Dx) Social History Tobacco Use Types Packs/Day Years Used Date Smoking Tobacco: Never Assessed Comments Unknown Sex and Gender Information Value Date Recorded Sex Assigned at Not on file 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
--- OUTSIDE RECORDS SUMMARY | 2024-12-13 18:24 | XMS_ITS | Encounter Summary ---
Author Organization [facility] Address [address] [place] [address] Care Team Providers Care Early Morning Babysitter Name Role Phone [facility], External Provider Primary Care Provider Un available Encounter Details Date Type Department Care Team (Late st Contact Info) Description 08/08/[address] [facility] Internal Medicine [address] [address] Daniel Vasquez MD [address] [place] [phone] Social History Tobacco Use Types Packs/Day Years Used Date Smoking Tobacco: Never Assessed Comments Unknown Sex and Gender Information Value Date Recorded Sex Assigned at Not on file Legal Sex Female 4:57 AM DOG OR HORSE RACING OFFICIAL Gender Identity Not on file Sexual Orientation Not on file documented as of this encounter Last Filed Vital Signs Vital Sign Reading Time Taken Comments Blood Pressure 110/70 08/08/2005 10:15 AM DOG OR HORSE RACING OFFICIAL Pulse - - Temperature 36.1 C (96.98 F) 08/08/2005 10:15 AM DOG OR HORSE RACING OFFICIAL Respiratory Rate - - Oxygen Saturation - - Inhaled Oxygen Concentration - - Weight 80.7 kg (178 lb) 08/08/2005 10:15 AM DOG OR HORSE RACING OFFICIAL Height - - Body Mass Index - - documented in this encounter Plan of Treatment Not on file documented as of this encounter Visit Diagnoses Not on filedocumented in this encounter Care Teams Early Morning Babysitter Relationship Specialty Start Date End Date [facility], External Provider [address] [place] [address] PCP - General 10/22/11 documented as of this encounter
--- OUTSIDE RECORDS SUMMARY | 2024-12-13 18:24 | XMS_ITS | Encounter Summary ---
Author Organization [facility] Address [address] [place] [address] Care Team Providers Care Labor Operator Name Role Phone [facility], External Provider Primary Care Provider Un available Encounter Details Date Type Department Care Team (Late st Contact Info) Description 08/08/2005 Orders Only [facility] Internal Medicine [address] [phone] Daniel Vasquez MD [address] [place] [phone] Social History Tobacco Use Types Packs/Day Years Used Date Smoking Tobacco: Never Assessed Comments Unknown Sex and Gender Information Value Date Recorded Sex Assigned at Not on file 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 LAB ORDERS: Order number: [id number] Test Ordered: CULTURE, AEROBIC BACTERIA 461.9-SINUSITIS UNSPECIFIED [...] on filedocumented in this encounter Care Teams Labor Operator Relationship Specialty Start Date End Date [facility], External Provider [address] [place] [address] PCP - General 10/22/11 documented as of this encounter
--- OUTSIDE RECORDS SUMMARY | 2024-12-13 18:24 | XMS_ITS | Encounter Summary ---
Author Organization [facility] Address [address] [place] [address] Care Team Providers Care Traveling Clerk Name Role Phone Luis, External Provider Primary Care Provider Un available Encounter Details Date Type Department Care Team (Latest Contact Info) Description 03/22/2006 Outpatient Historical [facility] Internal Medicine [address] [phone] Daniel Vasquez MD [address] [place] [phone] Cellulitis and Abscess of Unspecified Site (Primary Dx) Social History Tobacco Use Types Packs/Day Years Used Date Smoking Tobacco: Never Assessed Comments Unknown Sex and Gender Information Value Date Recorded Sex Assigned at Not on file 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
--- OUTSIDE RECORDS SUMMARY | 2024-12-13 18:24 | XMS_ITS | Encounter Summary ---
Author Organization [facility] Address [address] [place] [address] Care Team Providers Care Quarter Trimmer Name Role Phone Bertram Martinez MD Primary Care Provider [phone] Encounter Details Date Type Department Care Team (Late st Contact Info) Description 11/04/2024 Results Follow-Up [facility] [address] [place] [phone] Ndaira Burden NP [address] [place] [address] CBC with auto differential, Comprehensive metabolic panel, Hemoglobin A1c, Additional followed-up results: 7 Social History Tobacco Use Types Packs/Day Years Used Date Smoking Tobacco: Former Cigarettes 0.3 4 Q uit: 07/05/2017 Smokeless Tobacco: Never Comments:Smoking History Pac ks/day: 1 Packs Alcohol Use Standard Drinks/Week Comments [...] How often do you attend chur or methodist services? More than 4 times per year 11/06/2022 Do you belong to any clubs o r organizations such as rastafari groups, unions, fraternal or athletic groups, or [...] staff should administer the PHQ-9) 0 11/04/2024 [facility] - Occupational Stress [...] place to sleep or slept in a detention (including now)? No 11/06/2022 Personal Safety Answer Date Recorded Have you ever been in or are you currently in a harmful physical or emotional relationship or is someone making you feel afraid or unsafe? 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
--- OUTSIDE RECORDS SUMMARY | 2024-12-13 18:24 | XMS_ITS | Clinical Summary ---
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 Gender Identity Not on file Sexual Orientation [...] 1:30 PM CDT Height 172.7 cm (5' 8) 10/22/2011 4:00 PM CDT Body Mass Index - - Plan of Treatment Health Maintenance Due Date Last Done Comments HEPATITIS B VACCINES (1 of 3 - 19+ 3-dose series) 02/10/2000 HPV/Cotest (21-29) 2002 DTAP/TDAP/TD VACCINES (1 - Tdap) 12/15/2003 12/14/19 04 CERVICAL CANCER SCREENING 2011 HPV/Cotest (30-65) 2011 PAP SMEAR 2011 BREAST CANCER SCREENING 2021 INFLUENZA VACCINE (#1) 2025 HPV VACCINES Aged Out No longer eligi ble based on patient's age to complete this topic [place] [address] OPTIONS PPO [id number] Care Teams Social Security Assessor Relationship Specialty Start Date End Date [facility], External Provider [address] [facility] [place] [address] PCP - General 10/22/11
--- OUTSIDE RECORDS SUMMARY | 2024-12-13 18:24 | XMS_ITS | Encounter Summary ---
Author Organization [facility] Address 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
--- OUTSIDE RECORDS SUMMARY | 2024-12-13 18:24 | XMS_ITS | Clinical Summary ---
Author Organization [facility] Address [address] [place] [address] Care Team Providers Care Assurance Associate Name Role Phone Segundo Delarosa Primary Care Provider Juliet adams Source Comments [facility],non-owned Affiliates and Associated Physician Practices is amultiple site organization consisting of ambulatory clinics and hospital sitesin [place], [place], [place] and [place]. This disclosure is being madepursuant to the Care Everywhere program and may not contain all information available regarding this patient. Last updated 18.[facility] Appature Social History Tobacco Use Types Packs/Day Years Used Date Smoking Tobacco: Never Assessed Comments Unknown Sex and Gender Information Value Date Recorded Sex Assigned at Not on file Legal Sex Female 6:22 AM MACHINIST SET UP Gender Identity Not on file Sexual Orientation Not on file Plan of Treatment Health Maintenance Due Date Last Done Comments LIPID TESTING 1981 MAMMOGRAM 1981 HIV SCREENING 02/10/1996 HEPATITIS C SCREENING 02/05/1999 DTAP/TDAP/TD VACCINES (1 - Tdap) 02/10/2000 HEPATITIS B VACCINE (1 of 3 - 19+ 3-dose series) 02/10/2000 PAP SMEAR 2002 HPV VACCINE (1 - 3-dose SCDM series) 02/10/2008 COVID-19 VACCINE ( - 2023-2 5 season) 2024 DEPRESSION SCREENING 06/04/2024 INFLUENZA VACCINE (#1) 2025 ZOSTER VACCINE (1 of 2) 2031 [...] patient's age to complete this topic Insurance [employer] Care Teams Assurance Associate Relationship Specialty Start Date End Date Segundo Delarosa Update Information PCP - General 11/15/18
--- OUTSIDE RECORDS SUMMARY | 2024-12-13 18:24 | XMS_ITS | Encounter Summary ---
Author Organization [facility] Address [address] [place] [address] Care Team Providers Care Surveillance Sensor Operator Name Role Phone Luis, External Provider Primary Care Provider Un available Encounter Details Date Type Department Care Team (Late st Contact Info) Description 08/04/2003 Outpatient Historical [facility] Internal Medicine [address] [phone] Daniel Vasquez MD [address] [place] [phone] Social History Tobacco Use Types Packs/Day Years Used Date Smoking Tobacco: Never Assessed Comments Unknown Sex and Gender Information Value Date Recorded Sex Assigned at Not on file Legal Sex Female 4:57 AM ASSESSMENT COORDINATOR Gender Identity Not on file Sexual Orientation Not on file documented as of this encounter Plan of Treatment Not on file documented as of this encounter Visit Diagnoses Not on filedocumented in this encounter Care Teams Surveillance Sensor Operator Relationship Specialty Start Date End Date Luis, External Provider [address] [place] [address] PCP - General 10/22/11 documented as of this encounter
--- OUTSIDE RECORDS SUMMARY | 2024-12-13 18:24 | XMS_ITS | Encounter Summary ---
Author Organization [facility] Address [address] [place] [address] Care Team Providers Care Antenna Installer Name Role Phone Luis, External Provider Primary Care Provider Un available Encounter Details Date Type Department Care Team (Late st Contact Info) Description 12/14/2003 Outpatient Historical [facility] Internal Medicine [address] [phone] Daniel Vasquez MD [address] [place] [phone] Social History Tobacco Use Types Packs/Day Years Used Date Smoking Tobacco: Never Assessed Comments Unknown Sex and Gender Information Value Date Recorded Sex Assigned at Not on file 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
--- OUTSIDE RECORDS SUMMARY | 2024-12-13 18:24 | XMS_ITS | Encounter Summary ---
Author Organization [facility] Address [address] [place] [address] Care Team Providers Care Miter Sawyer Name Role Phone [facility], External Provider Primary Care Provider Un available Encounter Details Date Type Department Care Team (Late st Contact Info) Description 11/27/2005 Orders Only [facility] Internal Medicine [address] [phone] Daniel Vasquez MD [address] [place] [phone] Social History Tobacco Use Types Packs/Day Years Used Date Smoking Tobacco: Never Assessed Comments Unknown Sex and Gender Information Value Date Recorded Sex Assigned at Not on file 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 BARRIE PHONE NUMBER: [phone] WHO CALLED: Patient called. CURRENT ALLERGY LIST: [facility]RO [facility] NUMBER: [phone] PROBLEMS: back went out again over the [...] on filedocumented in this encounter Care Teams Miter Sawyer Relationship Specialty Start Date End Date [facility], External Provider [address] [place] [address] PCP - General 10/22/11 documented as of this encounter
--- OUTSIDE RECORDS SUMMARY | 2024-12-13 18:24 | XMS_ITS | Encounter Summary ---
Author Organization [facility] Address [address] [place] [address] Care Team Providers Care Multi Sensor Operator Name Role Phone Luis, External Provider Primary Care Provider Un available Encounter Details Date Type Department Care Team ([facility] Contact Info) Description 01/25/2005 Outpatient Historical [facility] Internal Medicine [address] [address] Daniel Vasquez MD [address] [place] [phone] Social History Tobacco Use Types Packs/Day Years Used Date Smoking Tobacco: Never Assessed Comments Unknown Sex and Gender Information Value Date Recorded Sex Assigned at Not on file 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
--- OUTSIDE RECORDS SUMMARY | 2024-12-13 18:24 | XMS_ITS | Encounter Summary ---
Author Organization [facility] Address [address] [place] [address] Care Team Providers Care Medical Coding Manager Name Role Phone Bertram Martinez MD Primary Care Provider [phone] [phone] Encounter Details Date Type Department Care Team (Late st Contact Info) Description 12/11/2024 Orders Only [facility] [address] [place] [address] Bertram Martinez MD [address] [place] [place] [address] Social History Tobacco Use Types Packs/Day Years [...] 11/06/2022 How often do you attend chur ch or druze services? More than 4 times per year 11/06/2022 Do you belong to any clubs o r organizations such as jewish groups, unions, fraternal or athletic groups, or [...] staff should administer the PHQ-9) 0 11/04/2024 [facility]ational [facility] Questionnaire Answer Date Recorded [...] place to sleep or slept in a long term (including now)? No 11/06/2022 Personal Safety Answer Date Recorded Have you ever been in or are you currently in a harmful physical or emotional relationship or is someone making you feel afraid or unsafe? Denies 09/11/2024 Comments No Sex and Gender Information Value Date Recorded Sex Assigned at Not on file Legal Sex Female 12:52 AM STEREOPTICIAN Gender Identity Not on file Sexual Orientation Not on file documented as of this encounter Ordered Prescriptions Prescription Sig Dispense Quantity Refills Last Filled Start Date End Date methylPREDNISolone (MEDROL DOSEPACK) 4 mg Dosepack Take as directed on package. 21 tablet 12/11/2024 5 cephalexin (KEFLEX) 500 mg capsule Take 1 capsule (500 mg total) by mouth 2 (two) times a day for 10 days 20 capsule 12/11/2024 5 documented in this encounter Plan of Treatment Not on file documented as of this encounter Visit Diagnoses Not on filedocumented in this encounter Care Teams Medical Coding Manager Relationship Specialty Start Date End Date Bertram Martinez MD [address] [place] [address] PCP - General 09/01/16 documented as of this encounter
--- OUTSIDE RECORDS SUMMARY | 2024-12-13 18:24 | XMS_ITS | Encounter Summary ---
Author Organization [facility] Address [address] [place] [address] Care Team Providers Care Reptile Keeper Name Role Phone Luis, External Provider Primary Care Provider Un available Encounter Details Date Type Department Care Team ([facility] Contact Info) Description 09/30/[address] 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
--- OUTSIDE RECORDS SUMMARY | 2024-12-13 18:24 | XMS_ITS | Encounter Summary ---
Author Organization [facility] Address 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
--- OUTSIDE RECORDS SUMMARY | 2024-12-13 18:24 | XMS_ITS | Encounter Summary ---
Author Organization [facility] Address [address] [place] [address] Care Team Providers Care Software Database Architect Name Role Phone Luis, External Provider Primary Care Provider Un available Encounter Details Date Type Department Care Team (Late st Contact Info) Description 01/25/2005 Outpatient Historical [facility] Internal Medicine [address] [phone] Daniel Vasquez MD [address] [place] [phone] Social History Tobacco Use Types Packs/Day Years Used Date Smoking Tobacco: Never Assessed Comments Unknown Sex and Gender Information Value Date Recorded Sex Assigned at Not on file 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
--- OUTSIDE RECORDS SUMMARY | 2024-12-13 18:24 | XMS_ITS | Encounter Summary ---
Author Organization [facility] Address [address] [place] [address] Care Team Providers Care Electronic Warfare Officer Name Role Phone Luis, External Provider Primary Care Provider Un available Encounter Details Date Type Department Care Team ([facility] [address] Contact Info) Description 03/31/2004 Outpatient Historical [facility] Internal Medicine [address] [phone] Daniel Vasquez MD [address] [place] [phone] Social History Tobacco Use Types Packs/Day Years Used Date Smoking Tobacco: Never Assessed Comments Unknown Sex and Gender Information Value Date Recorded Sex Assigned at Not on file 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
--- OUTSIDE RECORDS SUMMARY | 2024-12-13 18:24 | XMS_ITS | Encounter Summary ---
Author Organization [facility] Address [address] [place] [address] Care Team Providers Care Statistics Manager Name Role Phone Luis, External Provider Primary Care Provider Un available Encounter Details Date Type Department Care Team ([facility] Contact Info) Description 12/01/2004 Outpatient Historical [facility] Internal Medicine [address] [address] Daniel Vasquez MD [address] [place] [phone] Social History Tobacco Use Types Packs/Day Years Used Date Smoking Tobacco: Never Assessed Comments Unknown Sex and Gender Information Value Date Recorded Sex Assigned at Not on file Legal Sex Female 4:57 AM AWS SOFTWARE 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
--- OUTSIDE RECORDS SUMMARY | 2024-12-13 18:24 | XMS_ITS | Clinical Summary ---
Author Organization [facility] Address [address] [place] [address] Care Team Providers Care Shot Peen Operator Name Role Phone Unavailable Primary Care Provider Unavailabl e Social History Tobacco Use Types Packs/Day Years Used Date Smoking Tobacco: Never Assessed Comments Unknown Sex and Gender Information Value Date Recorded Sex Assigned at Not on file Legal Sex Female 9:33 PM POLITICAL SCIENTIST Gender Identity Not on file Sexual Orientation Not on file Plan of Treatment Health Maintenance Due Date Last Done Comments Cervical Cancer Screening Pa p Smear (Age 30 to 64) Every 3 Years 1981 Annual Physical 02/10/1984 Hepatitis C 1999 DTaP, Tdap and Td Vaccines ( 1 - Tdap) 02/10/2000 Hepatitis B Vaccines (1 of 3 - 19+ 3-dose series) 02/10/2000 Cervical Cancer Screening Pa p with HPV Testing (Age 30 to 64) Every 5 Years 2011 Cervical Cancer Screening with HPV 2011 Mammogram Screening 2021 COVID-19 Vaccine ( - 2023-2 5 season) 2024 HPV Vaccines Aged Out No longer eligi ble based on patient's age to complete this topic Meningococcal B Vaccine Aged Out No l onger eligible based on patient's age to complete this topic Meningococcal Vaccine Aged Out No ugo nathan eligible based on patient's age to complete this topic Pneumococcal Vaccine: Pediat rics (0 to 5 Years) and At-Risk Patients (6 to 49 Years) Aged Out No longer eligible b ased on patient's age to complete this topic RSV Immunizations Under 20 Months Aged Out No longer eligible based on patient's age to complete this topic
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
[2024-12-13 18:32] VITALS: BP 130/81; PULSE 76; RESP 18; TEMP 36.6; O2SAT 100
== END 2024-12-13 18:42 | disposition home or self-care (01) ==
PROVIDERS: Emergency Provider Nurse Practitioner Family; PCP Family Medicine
DX: L23.7 Allergic contact dermatitis due to plants, except food (principal); F17.200 Nicotine dependence, unspecified, uncomplicated; Q79.60 Ehlers-Danlos syndrome, unspecified; F32.A Depression, unspecified
CPT/HCPCS: 99213; G0463

== ENCOUNTER 2025-04-14 17:19 | Emergency (ER) | payer MEDICARE, SELFPAY ==
--- OUTSIDE RECORDS SUMMARY | 2025-04-14 17:22 | XMS_ITS | Encounter Summary ---
Author Organization [email or web address] Address [address] [place] [address] Care Team Providers Care Master Printer Name Role Phone [facility], External Provider Primary Care Provider Un available Encounter Details Date Type Department Care Team (Latest Contact Info) Description 11/28/2004 Outpatient Historical [facility] Daniel Vasquez MD [address] [place] [phone] LUMBAR DISC DISPLACEMENT (Primary Dx) Social History Tobacco Use Types Packs/Day Years Used Date Smoking Tobacco: Never Assessed Comments Unknown Sex and Gender Information Value Date Recorded Sex Assigned at Not on file 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
--- OUTSIDE RECORDS SUMMARY | 2025-04-14 17:22 | XMS_ITS | Encounter Summary ---
Author Organization [facility] Address [address] [place] [address] Care Team Providers Care Grinding And Polishing Laborer Name Role Phone Luis, External Provider Primary Care Provider Un available Encounter Details Date Type Department Care Team (Late st Contact Info) Description 08/04/2003 Outpatient Historical [facility] Internal Medicine [address] [phone] Daniel Vasquez MD [address] [place] [phone] Social History Tobacco Use Types Packs/Day Years Used Date Smoking Tobacco: Never Assessed Comments Unknown Sex and Gender Information Value Date Recorded Sex Assigned at Not on file 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
--- OUTSIDE RECORDS SUMMARY | 2025-04-14 17:22 | XMS_ITS | Encounter Summary ---
Author Organization [facility] Address 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
--- OUTSIDE RECORDS SUMMARY | 2025-04-14 17:22 | XMS_ITS | Encounter Summary ---
Author Organization [facility] Address [address] [place] [address] Care Team Providers Care Civil Clerk Name Role Phone Luis, External Provider Primary Care Provider Un available Encounter Details Date Type Department Care Team ([facility] Contact Info) Description 09/30/2003 Outpatient Historical [facility] Internal Medicine [address] [phone] Daniel Vasquez MD [address] [place] [phone] Social History Tobacco Use Types Packs/Day Years Used Date Smoking Tobacco: Never Assessed Comments Unknown Sex and Gender Information Value Date Recorded Sex Assigned at Not on file 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
--- OUTSIDE RECORDS SUMMARY | 2025-04-14 17:22 | XMS_ITS | Encounter Summary ---
Author Organization [facility] Address [address] [place] [address] Care Team Providers Care Service Line Bus Cleaner Name Role Phone Luis, External Provider Primary Care Provider Un available Encounter Details Date Type Department Care Team ([facility] Contact Info) Description 01/25/2005 Outpatient Historical [facility] Internal Medicine [address] [phone] Daniel Vasquez MD [address] [place] [phone] Social History Tobacco Use Types Packs/Day Years Used Date Smoking Tobacco: Never Assessed Comments Unknown Sex and Gender Information Value Date Recorded Sex Assigned at Not on file Legal Sex Female 4:57 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
--- OUTSIDE RECORDS SUMMARY | 2025-04-14 17:22 | XMS_ITS | Encounter Summary ---
Author Organization [facility] Address [address] [place] [address] Care Team Providers Care Emergency Medicine Name Role Phone [facility], External Provider Primary Care Provider Un available Encounter Details Date Type Department Care Team (Late st Contact Info) Description 08/08/2005 Orders Only [facility] Internal Medicine [address] [phone] Daniel Vasquez MD [address] [place] [phone] Social History Tobacco Use Types Packs/Day Years Used Date Smoking Tobacco: Never Assessed Comments Unknown Sex and Gender Information Value Date Recorded Sex Assigned at Not on file 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 LAB ORDERS: Order number: [id number] Test Ordered: CULTURE, AEROBIC BACTERIA 461.9-SINUSITIS UNSPECIFIED [...] on filedocumented in this encounter Care Teams Emergency Medicine Relationship Specialty Start Date End Date [facility], External Provider [address] [place] [address] PCP - General 10/22/11 documented as of this encounter
--- OUTSIDE RECORDS SUMMARY | 2025-04-14 17:22 | XMS_ITS | Patient Health Record ---
Author Organization [facility] [employer] [facility] Address [address] [place] [address] Care Team Providers Care Scorer Helper Name Role Phone Kane Banks Unavailable [phone] Reason For Referral No Information Medications Medication SIG (Take, Route, Frequency, Duration) Notes Start Date End Date Status tiZANidine HCl 2 MG Tablet Oral Active Nitrofurantoin Monohyd Macro 100 MG Capsule Oral Active oxyCODONE-Acetaminophen 5-32 5 MG Tablet Oral Active Benzonatate 100 MG Capsule Oral Active predniSONE 20 MG Tablet Oral Active Junel FE 06/23 1-20 MG-MCG Tablet Oral Active buPROPion HCl ER (XL) 150 MG Tablet Extended Release 24 Hour Oral Active Ondansetron HCl 4 MG Tablet Oral Active Methocarbamol 500 MG Tablet Oral Active ALPRAZolam 0.5 MG Tablet Oral Active methylPREDNISolone 4 MG Tabl et Therapy Pack Oral Active Cephalexin 500 MG Capsule Oral Active Venlafaxine HCl ER 75 MG Capsule Extended Release 24 Hour Oral Active Venlafaxine HCl ER 37.5 MG Capsule Extended Release 24 Hour Oral Active Fluconazole 150 MG Tablet Oral Active buPROPion HCl ER (SR) 150 MG Tablet Extended Release 12 Hour Oral Active Clindamycin HCl 300 MG Capsule Oral Active traMADol HCl 50 MG Tablet Oral Active Amoxicillin 500 MG Capsule Oral Active Carisoprodol 350 MG Tablet Oral Active oxyBUTYnin Chloride 5 MG Tablet Oral Active traZODone HCl 50 MG Tablet Oral Active Plan Of Treatment No Information Insurance Providers Payer Name Payer Address Payer Phone Subscriber Number Group Number Insured Name Patient Relationship to Insured Coverage Start Date Coverage End Date [employer] [address] [place] [phone] [id number] SHANICE ELDER Self - patient is the insured
--- OUTSIDE RECORDS SUMMARY | 2025-04-14 17:22 | XMS_ITS | Encounter Summary ---
Author Organization [facility] Address [address] [place] [address] Care Team Providers Care Vessel Operator Name Role Phone Luis, External Provider Primary Care Provider Un available Encounter Details Date Type Department Care Team ([facility] Contact Info) Description 12/01/2004 Outpatient Historical [facility] Internal Medicine [address] [phone] Daniel Vasquez MD [address] [place] [phone] Social History Tobacco Use Types Packs/Day Years Used Date Smoking Tobacco: Never Assessed Comments Unknown Sex and Gender Information Value Date Recorded Sex Assigned at Not on file 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
--- OUTSIDE RECORDS SUMMARY | 2025-04-14 17:22 | XMS_ITS | Encounter Summary ---
Author Organization [facility] Address [address] [place] [address] Care Team Providers Care Premix Concrete Batcher Name Role Phone [facility], External Provider Primary Care Provider Un available Encounter Details Date Type Department Care Team (Late st Contact Info) Description 08/08/2005 Outpatient Historical [facility] Internal Medicine [address] [phone] Daniel Vasquez MD [address] [place] [phone] Social History Tobacco Use Types Packs/Day Years Used Date Smoking Tobacco: Never Assessed Comments Unknown Sex and Gender Information Value Date Recorded Sex Assigned at Not on file Legal Sex Female 4:57 AM PRODUCTION MAINTENANCE TECHNICIAN Gender Identity Not on file Sexual Orientation Not on file documented as of this encounter Last Filed Vital Signs Vital Sign Reading Time Taken Comments Blood Pressure 110/70 08/08/2005 10:15 AM PRODUCTION MAINTENANCE TECHNICIAN Pulse - - Temperature 36.1 C (96.98 F) 08/08/2005 10:15 AM PRODUCTION MAINTENANCE TECHNICIAN Respiratory Rate - - Oxygen Saturation - - Inhaled Oxygen Concentration - - Weight 80.7 kg (178 lb) 08/08/2005 10:15 AM PRODUCTION MAINTENANCE TECHNICIAN Height - - Body Mass Index - - documented in this encounter Plan of Treatment Not on file documented as of this encounter Visit Diagnoses Not on filedocumented in this encounter Care Teams Premix Concrete Batcher Relationship Specialty Start Date End Date [facility], External Provider [address] [place] [address] PCP - General 10/22/11 documented as of this encounter
--- OUTSIDE RECORDS SUMMARY | 2025-04-14 17:22 | XMS_ITS | Clinical Summary ---
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 mitral regurgitation. Nostenosis present. Aortic Valve: Normal trileaflet aortic valve. No aortic regurgitation. Noaortic valve stenosis. The mean transaortic gradient is 3 mmHg. The aortic valve areaby the continuity equation (using VTI) is 3.47 cm2. Aortic valve dimensionlessindex is 0.91. Tricuspid Valve: Normal tricuspid valve structure. No tricuspidregurgitation. No tricuspid valve stenosis. Pulmonic Valve: Normal pulmonic valve structure. No pulmonicregurgitation. No pulmonic valve stenosis present. Pericardium: Normal pericardium without pericardial effusion. Aorta: Normal aortic root size at sinuses of Valsalva. Normal aortic rootsize when indexed. The ascending aorta is normal in size when indexed. IVC: The IVC was <2.1 cm and collapsibility <50%. (est. RA pressure 6-10mmHg). PASP: Unable to determine PASP due to inadequate TR jet, but the mean PApressure appears normal based on the PV acceleration time. Rhythm: Normal Sinus rhythm was seen during the study. MEASUREMENTS: 2D/MM Value Range DopplerValue Range LVIDd 2D 4.83 cm [ 3.80 - 5.20 ] AV Peak Vel1.2 m/s [ 1.0 - 1.7 ] LVIDs 2D 3.02 cm [ 2.20 - 3.50 ] AV Peak PG5.76 mmHg IVSd 2D 0.79 cm [ 0.60 - 0.90 ] AV Mean PG3 mmHg LVPWd 2D 0.71 cm [ 0.60 - 0.90 ] AV VTI23.1 cm LV Thickness Ratio 1.1 LVOT Peak Vel1.0 m/s [ 0.7 - 1.1 ] LV FS 2D 37.47 % [ 27.00 - 45.00 ] LVOT Peak PG4.00 mmHg LV Mass 2D 121.48 g LVOT Mean PG2 mmHg LV Mass Index 2D 68.61 g/m2 LVOT VTI21.1 cm RWT 0.29 LVOT Diam2.20 cm EDV Mod BP 118.00 ml [ 46.00 - 106.00 ] DAPHNE VTI3.47 cm2 LV EDV Index 66.64 ml/m2 LVOT/AV VTI0.91 - Dimensionless index (DVI) ESV Mod BP 46.00 ml [ 14.00 - 42.00 ] MV E Peak Vel0.8 m/s [ 0.6 - 1.3 ] EF Mod BP 61 % [ 54 - 74 ] MV A Peak Vel0.5 m/s [ 1.0 - 1.2 ] LV GLS -22.2 % [ -25.0 - -18.0 ] MV E/A1.6 ratio [ 0.8 - 1.5 ] LA Length 4C 4.23 cm MV Decel Olqm698.84 msec [ 104.00 - 258.00 ] RV Base Dimen 2D 3.9 cm [ 2.5 - 4.2 ] Med E` Vel11.8 cm/sec [ 8.0 - 25.0 ] TAPSE 2.20 cm [ 1.71 - 5.00 ] Lat E` Vel10.9 cm/sec [ 10.0 - 25.0 ] RA Volume 15.97 ml Average E/E`7.05 RA Volume Index 9.02 ml/m2 RV S`15.60 cm/sec IVC Diam 1.28 cm PV Peak Vel0.9 m/s [ 0.4 - 0.8 ] IVC Collapse 48 % PV Peak PG3.24 mmHg AoR Diam 2D 3.06 cm [ 2.70 - 3.70 ] Ao Root Index 1.73 cm/m2 [ 1.00 - 2.00 ] Asc Ao Diam 2D2.73 cm Asc Ao Index1.54 cm/m2 Electronically Signed By: Maricruz Lloyd MD 01/25/2025 16:18:36 CDT us Maricruz Lloyd MD CV ECHO PROCEDURES Final Res ult * eGFR (01/14/2025 12:52 PM CDT) eGFR >90 >=60 mL/min/1. 73 m2 [...] of Race in Diagnosing Kidney Disease, JASN 202). The CKD-EPI equation should not be used for patients with unstable renal function and has not been validated in children and those over 70. Current interpretive data was last reviewed 2021. Blood 01/14/2025 12:5 2 PM CDT 01/14/2025 2:34 PM CDT us Maricruz Lloyd MD LAB BLOOD ORDERABLES Final R esult [facility] [address] Department [place] [address] * Differential, auto (01/14/2025 12:52 PM CDT) Neutrophil abs 3.24 1.50 - 6.50 K/cumm Imm gran abs 0.01 0.00 - 0.10 K/cumm [facility] Lymphocyte abs 2.50 0.80 - 3.30 K/cumm [facility] Monocyte abs 0.43 0.20 - 0.80 K/cumm [facility] Eosinophil abs 0.07 0.00 - 0.50 K/cumm [facility] Basophil abs 0.02 0.00 - 0.10 K/cumm [facility] Neutrophil pct 51.6 % [facility] Comment: Interpretive Data Percent cell count reference ranges are not reported, since discordance with absolute values may lead to misinterpretation of CBC data. Current Interpretive Data was last revised on 2017. Imm gran pct 0.2 % [facility] Comment: Interpretive Data Percent cell count reference ranges are not reported, since discordance with absolute values may lead to misinterpretation of CBC data. Current Interpretive Data was last revised on 2017. Lymphocyte pct 39.9 % [facility] Comment: Interpretive Data Percent cell count reference ranges are not reported, since discordance with absolute values may lead to misinterpretation of CBC data. Current Interpretive Data was last revised on 2017. Monocyte pct 6.9 % [facility] Comment: Interpretive Data Percent cell count reference ranges are not reported, since discordance with absolute values may lead to misinterpretation of CBC data. Current Interpretive Data was last revised on 2017. Eosinophil pct 1.1 % [facility] Comment: Interpretive Data Percent cell count reference ranges are not reported, since discordance with absolute values may lead to misinterpretation of CBC data. Current Interpretive Data was last revised on 2017. Basophil pct 0.3 % [facility] Comment: Interpretive Data Percent cell count reference ranges are not reported, since discordance with absolute values may lead to misinterpretation of CBC data. Current Interpretive Data was last revised on 2017. Blood 01/14/2025 12:5 2 PM CDT 01/14/2025 2:34 PM CDT Maricruz Lloyd MD LAB BLOOD ORDERABLES Final R esult Performing Organization Address City/[facility]/ZIP Co de Phone Number [facility] [address] [employer] [place] [address] * CBC with auto differential (01/14/2025 12:52 PM CDT) WBC 6.27 3.80 - 9.90 K/cumm Hgb 13.3 11.9 - 15.5 g/dL [facility] Hct 40.1 35.6 - 45.5 % [facility] Plt 227 150 - 400 K/cumm [facility] MPV 11.6 9.1 - 12.3 fL [facility] RBC 4.30 3.90 - 5.20 M/cumm [facility] MCV 93.3 81.3 - 96.4 fL [facility] MCH 30.9 27.1 - 33.3 pg [facility] MCHC 33.2 32.3 - 35.7 g/dL [facility] RDW CV 13.2 11.1 - 14.9 % [facility] RDW SD 44.9 35.7 - 48.1 fL [facility] NRBC abs 0.00 0.00 - 0.01 K/cumm [facility] Blood 01/14/2025 12:5 2 PM CDT 01/14/2025 2:34 PM CDT Maricruz Lloyd MD LAB BLOOD ORDERABLES Final R esult Performing Organization Address City/[facility]/ZIP Co de Phone Number [facility] [address] [employer] [place] [address] * TSH (01/14/2025 12:52 PM CDT) Thyroid Stimulating Hormone 1.26 0.30 - 4.20 mcIUnit/mL Blood 01/14/2025 12:5 2 PM CDT 01/14/2025 2:34 PM CDT Maricruz Lloyd MD LAB BLOOD ORDERABLES Final R esult [facility] [address] [facility]. Department [place] [address] * Comprehensive metabolic panel (01/14/2025 12:52 PM CDT) Sodium 141 135 - 145 mmol/L Potassium, pl 4.0 3.3 - 4.9 mmol/L [facility] Chloride 103 97 - 110 mmol/L [facility] CO2 26 22 - 32 mmol/L [facility] Anion gap 12 2 - 15 mmol/L [facility] BUN 15 6 - 25 mg/dL [facility] Creatinine 0.60 0.60 - 1.10 mg/dL [facility] Glucose 80 70 - 199 mg/dL [facility] Comment: Interpretive Data Fasting glucose >/= 126 [...] classification and Diagnosis of Diabetes Diabetes Care 202; 46: S19-S40. Current interpretive data was last revised 2022. Calcium 9.5 8.5 - 10.3 mg/dL [facility] Bilirubin, total 0.2 0.1 - 1.2 mg/dL [facility] Protein, pl 7.6 6.5 - 8.5 g/dL [facility] Albumin 4.7 3.5 - 5.0 g/dL [facility] Alk phos 63 40 - 130 Units/L [facility] ALT 16 7 - 45 Units/L [facility] AST 21 10 - 45 Units/L [facility] Blood 01/14/2025 12:5 2 PM CDT 01/14/2025 2:34 PM CDT us Maricruz Lloyd MD LAB BLOOD ORDERABLES Final R esult [facility] [address] [facility] [place] [address] * Extended/Fci Holter Patch (>48 hours up to 7 days) (01/14/2025 12:50 PM CDT) Anatomical Region Laterality Modality Electrocardiogra phy 01/14/2025 2:48 PM CDT Narrative 2025 2:42 PM CDT HOLTER MONITOR Patient Name: SHANICE ELDER L : 1980 (44y 11m) Gender: F Study Date: 01/14/2025 02:48:27 PM Ht(Inch): Wt(Lb): BSA: Tech: Location: [facility] Order Provider: MARICRUZ LLOYD BMI: Ref Provider: MARICRUZ LLOYD PROCEDURES: Holter Report: EXTENDED/SENIOR LIVING HOLTER PATCH (>48 HOURS UP TO 7 DAYS) [[id number]]. Enrollment Period: 2025-01-14 00:00:00 through 2025-01-20 00:00:00. Location: [facility]. INDICATIONS: R00.2 Palpitations. FINDINGS: Holter Data: Min Rate: 42 BPM Min Rate Timestamp: 2025-01-18 02:19:46 Bradycardia (% of study): 43 Max Rate: 184 BPM Max Rate Timestamp: 2025-01-15 13:35:33 Tachycardia (% of study): 2 Mean Rate: 65 BPM AFib (% of study): 0 Singlets (PACs): 192 events Couplets (PACs): 7 events Total (PACs): 219 events Singlets (PVCs): 28 events Couplets (PVCs): 1 events Total (VE): 41 events Runs (VT): 11 events Total beats: 203135 SIGNIFICANT PAUSES: 0 >3 sec Protocol: Recording Duration (Ordered): [id number] Recording Duration (Actual): 163168.06 SUMMARY: *The predominant rhythm was Sinus. *The Maximum Heart Rate recorded was 184 bpm, 01/15 13:35:33, the Minimum Heart Rate recorded was 42 bpm, 01/18 02:19:46, and the Average Heart Rate was 65 bpm. *There were 41 VE beats with a burden of <1 %. There were 3 occurrences of Ventricular Tachycardia with the Fastest episode 184 bpm, 01/15 13:35:32, and the Longest episode 4 beats, 01/15 13:35:32. *There were 219 SVE beats with a burden of <1 %. There were 3 occurrences of Supraventricular Tachycardia with the Fastest episode 166 bpm, 01/20 14:50:39, and the Longest episode 6 beats, 01/16 12:58:16. *There were 2 Patient Triggers.;. CONCLUSIONS: 1. The PDF can be found in the [facility] Patient chart. Please go to the Cardiology tab, click on the holter or event exam. Scroll to bottom where the ORDER LEVEL Documents reside and click the blue link to the pdf. 2. *The predominant rhythm was Sinus. *The Maximum Heart Rate recorded was 184 bpm, 01/15 13:35:33, the Minimum Heart Rate recorded was 42 bpm, 01/18 02:19:46, and the Average Heart Rate was 65 bpm. *There were 41 VE beats with a burden of <1 %. There were 3 occurrences of Ventricular Tachycardia with the Fastest episode 184 bpm, 01/15 13:35:32, and the Longest episode 4 beats, 01/15 13:35:32. *There were 219 SVE beats with a burden of <1 %. There were 3 occurrences of Supraventricular Tachycardia with the Fastest episode 166 bpm, 01/20 14:50:39, and the Longest episode 6 beats, 01/16 12:58:16. *There were 2 Patient Triggers associated with NSR. No symptoms noted. Electronically Signed By: Ava Kang M.D. 2025 2:34:18 PM CDT Procedure Note Ava Kang MD - 2025 HOLTER MONITOR Patient Name: SHANICE ELDER L : 1980 (44y 11m) Gender: F Study Date: 01/14/2025 02:48:27 PM Ht(Inch): Wt(Lb): BSA: Tech: Location: [facility] Order Provider: MARICRUZ LLOYD BMI: Ref Provider: MARICRUZ LLOYD PROCEDURES: Holter Report: EXTENDED/SENIOR LIVING HOLTER PATCH (>48 HOURS UP TO 7 DAYS)[[id number]]. Enrollment Period: 2025-01-14 00:00:00 through 2025-01-20 00:00:00. Location: [facility]. INDICATIONS: R00.2 Palpitations. FINDINGS: Holter Data: Min Rate: 42 BPM Min Rate Timestamp: 2025-01-18 02:19:46 Bradycardia (% of study): 43 Max Rate: 184 BPM Max Rate Timestamp: 2025-01-15 13:35:33 Tachycardia (% of study): 2 Mean Rate: 65 BPM AFib (% of study): 0 Singlets (PACs): 192 events Couplets (PACs): 7 events Total (PACs): 219 events Singlets (PVCs): 28 events Couplets (PVCs): 1 events Total (VE): 41 events Runs (VT): 11 events Total beats: 078872 SIGNIFICANT PAUSES: 0 >3 sec Protocol: Recording Duration (Ordered): [id number] Recording Duration (Actual): 679742.06 SUMMARY: *The predominant rhythm was Sinus. *The Maximum Heart Raterecorded was 184 bpm, 01/15 13:35:33, the Minimum Heart Rate recorded was 42 bpm, 01/1702:19:46, and the Average Heart Rate was 65 bpm. *There were 41 VE beats with a burden of <1%. There were 3 occurrences of Ventricular Tachycardia with the Fastest episode 184 bpm,01/15 13:35:32, and the Longest episode 4 beats, 01/15 13:35:32. *There were 219SVE beats with a burden of <1 %. There were 3 occurrences of Supraventricular Tachycardiawith the Fastest episode 166 bpm, 01/20 14:50:39, and the Longest episode 6 beats,01/16 12:58:16. *There were 2 Patient Triggers.;. CONCLUSIONS: 1. The PDF can be found in the [facility] Patient chart. Please go to theCardiology tab, click on the holter or event exam. Scroll to bottom where the ORDER LEVELDocuments reside and click the blue link to the pdf. 2. *The predominant rhythm was Sinus. *The Maximum Heart Rate recorded was 184 bpm, 01/15 13:35:33, the MinimumHeart Rate recorded was 42 bpm, 01/18 02:19:46, and the Average Heart Rate was 65 bpm. *There were 41 VE beats with a burden of <1 %. There were 3 occurrences ofVentricular Tachycardia with the Fastest episode 184 bpm, 01/15 13:35:32, and the Longest episode4 beats, 01/15 13:35:32. *There were 219 SVE beats with a burden of <1 %. There were 3 occurrencesof Supraventricular Tachycardia with the Fastest episode 166 bpm, 01/20 14:50:39, and theLongest episode 6 beats, 01/16 12:58:16. *There were 2 Patient Triggers associated with NSR. No symptoms noted. Electronically Signed By: Ava Kang M.D. 2025 2:34:18 PM CDT Maricruz Lloyd MD CV CARDIAC SERVICES PROCEDUR ES Final Result * ECG 12 lead (01/14/2025 11:17 AM CDT) Maricruz Lloyd MD ECG ORDERABLES Edited Resul t - Final * Hepatitis panel, acute Blood (04/16/2024 3:00 PM COMPUTER PUBLISHER) Hep A IgM Nonreactive Nonreactive Comment: Interpretive Data: If Hep A IgM Ab is reported as Equivocal, a new sample should be drawn in two weeks for testing. Current interpretive data was last revised on 19. Hep B core IgM Nonreactive Nonreactive [facility] Comment: Interpretive Data If HepB Core IgM Ab is reported as Equivocal, a new sample should be drawn in two weeks for testing. Current interpretive data was last revised on 19. Hep C Ab Nonreactive Nonreactive [facility] Comment: Interpretive Data Nonreactive: Antibodies to [...] last revised on 2019. HepBsAg Nonreactive Nonreactive [facility] Blood 04/16/2024 3:00 PM COMPUTER PUBLISHER 04/16/2024 8:17 PM COMPUTER PUBLISHER Bertram Martinez MD LAB MICROBIOLOGY - GENERA L ORDERABLES Final Result [facility] [address] [address] Department [place] [address] * Diagnostic Mammogram Bilateral W [...] to Health Maintenance Insurance MEDICARE MEDICARE MEDICARE MEDICARE Advance Directives For more information, please contact: [phone] * Full Code (Latest Code Status on File) Date Activated Date Inactivated Comments 12/31/2024 9:35 AM 12/31/2024 4:39 PM * Full Code Date Activated Date Inactivated Comments 04/07/2021 9:37 AM 04/07/2021 3:59 PM Care Teams Waste Removalist Relationship Specialty Start Date End Date Bertram Martinez MD [address] [place] [address] PCP - General 09/01/16
--- OUTSIDE RECORDS SUMMARY | 2025-04-14 17:22 | XMS_ITS | Encounter Summary ---
Author Organization [facility] Address [address] [place] [address] Care Team Providers Care Hydrogeology Professor Name Role Phone Luis, External Provider Primary Care Provider Un available Encounter Details Date Type Department Care Team ([facility] Contact Info) Description 03/22/2006 Outpatient Historical [facility] Internal Medicine [address] [phone] Daniel Vasquez MD [address] [place] [phone] Social History Tobacco Use Types Packs/Day Years Used Date Smoking Tobacco: Never Assessed Comments Unknown Sex and Gender Information Value Date Recorded Sex Assigned at Not on file 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
--- OUTSIDE RECORDS SUMMARY | 2025-04-14 17:22 | XMS_ITS | Encounter Summary ---
Author Organization [facility] Address [address] [place] [address] Care Team Providers Care Equipment Cleaner Name Role Phone Luis, External Provider Primary Care Provider Un available Encounter Details Date Type Department Care Team (Late st Contact Info) Description 08/04/2003 Outpatient Historical [facility] Internal Medicine [address] [phone] Daniel Vasquez MD [address] [place] [phone] Social History Tobacco Use Types Packs/Day Years Used Date Smoking Tobacco: Never Assessed Comments Unknown Sex and Gender Information Value Date Recorded Sex Assigned at Not on file 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
--- OUTSIDE RECORDS SUMMARY | 2025-04-14 17:22 | XMS_ITS | Encounter Summary ---
Author Organization [facility] Address [address] [place] [address] Care Team Providers Care Plumber Maintenance Name Role Phone Luis, External Provider Primary Care Provider Un available Encounter Details Date Type Department Care Team (Latest Contact Info) Description 03/22/2006 Outpatient Historical [facility] Internal Medicine [address] [phone] Daniel Vasquez MD [address] [place] [phone] Cellulitis and Abscess of Unspecified Site (Primary Dx) Social History Tobacco Use Types Packs/Day Years Used Date Smoking Tobacco: Never Assessed Comments Unknown Sex and Gender Information Value Date Recorded Sex Assigned at Not on file 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
--- OUTSIDE RECORDS SUMMARY | 2025-04-14 17:22 | XMS_ITS | Encounter Summary ---
Author Organization [facility] Address [address] [place] [address] Care Team Providers Care Fixed Interest Dealer Name Role Phone [facility], External Provider Primary Care Provider Un available Encounter Details Date Type Department Care Team (Late st Contact Info) Description 03/22/2006 Orders Only [facility] Internal Medicine [address] [phone] Daniel Vasquez MD [address] [place] [phone] Social History Tobacco Use Types Packs/Day Years Used Date Smoking Tobacco: Never Assessed Comments Unknown Sex and Gender Information Value Date Recorded Sex Assigned at Not on file 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 LAB ORDERS: Order number: [id number] Test Ordered: CULTURE, AEROBIC WOUND W/SMEAR 8992 493.90-ASTHMA UNSPECIFIED stable, enc flu vaccine avoid tob products RETURN VISIT : Patient instructed to return in 6 weeks. Electronically Signed by: Daniel Vasquez MD on , March 22, 2006 documented in this encounter Plan of Treatment Not on file documented as of this encounter Visit Diagnoses Not on filedocumented in this encounter Care Teams Fixed Interest Dealer Relationship Specialty Start Date End Date [facility], External Provider [address] [place] [address] PCP - General 10/22/11 documented as of this encounter
--- OUTSIDE RECORDS SUMMARY | 2025-04-14 17:22 | XMS_ITS | Encounter Summary ---
Author Organization [facility] Address 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
--- OUTSIDE RECORDS SUMMARY | 2025-04-14 17:22 | XMS_ITS | Encounter Summary ---
Author Organization [facility] Address [address] [place] [address] Care Team Providers Care Brim Pouncer Name Role Phone [facility], External Provider Primary Care Provider Un available Encounter Details Date Type Department Care Team (Late st Contact Info) Description 01/08/2006 Orders Only [facility] Internal Medicine [address] [phone] Daniel Vasquez MD [address] [place] [phone] Social History Tobacco Use Types Packs/Day Years Used Date Smoking Tobacco: Never Assessed Comments Unknown Sex and Gender Information Value Date Recorded Sex Assigned at Not on file Legal Sex Female 4:57 AM PACU NURSE Gender Identity Not on file Sexual [...] if sx recue LAB ORDERS: Order number: [id number] Test Ordered: URINALYSIS, COMPLETE W/REFLEX TO CULTURE 3020 381.01-OTITIS MEDIA ACUTE SEROUS MEDICATIONS: CEFUROXIME AXETIL ORAL TABLET 250 MG, 1 Two Times A Day, 20 Dispensed, status: NEW PRESCRIPTION, 01/08/2006. 380.10-OTITIS EXTERNA MEDICATIONS: CORTISPORIN OTIC SOLUTION 3.5-18477-5, DIRECTED, 10 Duration/Days Supply, status: NEW PRESCRIPTION, 01/08/2006, Comment: 4 gtts qid x 10d. 216.9-SKIN BENIGN NEOPLASM SITE UNSPECIFIED refer derm SPECIALTY REFERRAL: DERMATOLOGY Dr. Liana Price ph: [phone]. PREVENTIVE COUNSELING The patient was counseled regarding [...] on filedocumented in this encounter Care Teams Brim Pouncer Relationship Specialty Start Date End Date [facility], External Provider [address] [place] [address] PCP - General 10/22/11 documented as of this encounter
--- OUTSIDE RECORDS SUMMARY | 2025-04-14 17:22 | XMS_ITS | Encounter Summary ---
Author Organization [facility] Address [address] [place] [address] Care Team Providers Care Chairperson Anesthesiology Name Role Phone [facility], External Provider Primary Care Provider Un available Encounter Details Date Type Department Care Team (Late st Contact Info) Description 01/08/2006 Outpatient Historical [facility] Internal Medicine [address] [phone] Daniel Vasquez MD [address] [place] [phone] Social History Tobacco Use Types Packs/Day Years Used Date Smoking Tobacco: Never Assessed Comments Unknown Sex and Gender Information Value Date Recorded Sex Assigned at Not on file Legal Sex Female 4:57 AM SURVEY DIRECTOR Gender Identity Not on file Sexual Orientation [...] on filedocumented in this encounter Care Teams Chairperson Anesthesiology Relationship Specialty Start Date End Date [facility], External Provider [address] [place] [address] PCP - General 10/22/11 documented as of this encounter
--- OUTSIDE RECORDS SUMMARY | 2025-04-14 17:22 | XMS_ITS | Clinical Summary ---
Author Organization [facility] Address [address] [place] [address] Care Team Providers Care Decorator Street And Building Name Role Phone Segundo Delarosa Primary Care Provider Juliet adams Source Comments [facility],non-owned Affiliates and Associated Physician Practices is amultiple site organization consisting of ambulatory clinics and hospital sitesin [place], [place], [place] and [place]. This disclosure is being madepursuant to the Care Everywhere program and may not contain all information available regarding this patient. Last updated 18.[facility] [employer] Social History Tobacco Use Types Packs/Day Years Used Date Smoking Tobacco: Never Assessed Comments Unknown Sex and Gender Information Value Date Recorded Sex Assigned at Not on file Legal Sex Female 6:22 AM STAFF RESEARCH SCIENTIST Gender Identity Not [...] VACCINE (1 - 3-dose SCDM series) 02/10/2008 DEPRESSION SCREENING 06/04/2024 COVID-19 VACCINE ( - 2023-2 5 season) 2025 INFLUENZA VACCINE (#1) 2025 ZOSTER VACCINE (1 [...] patient's age to complete this topic Insurance [employer] Care Teams Decorator Street And Building Relationship Specialty Start Date End Date Segundo Delarosa Update Information PCP - General 11/15/18
--- OUTSIDE RECORDS SUMMARY | 2025-04-14 17:22 | XMS_ITS | Clinical Summary ---
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
--- OUTSIDE RECORDS SUMMARY | 2025-04-14 17:22 | XMS_ITS | Encounter Summary ---
Author Organization [facility] Address [address] [place] [address] Care Team Providers Care Data Migration Lead Name Role Phone [facility], External Provider Primary Care Provider Un available Encounter Details Date Type Department Care Team (Late st Contact Info) Description 08/23/2004 Outpatient Historical [facility] Internal Medicine [address] [phone] Daniel Vasquez MD [address] [place] [phone] Social History Tobacco Use Types Packs/Day Years Used Date Smoking Tobacco: Never Assessed Comments Unknown Sex and Gender Information Value Date Recorded Sex Assigned at Not on file 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 Gender Identity Not on file Sexual Orientation Not on file documented as of this encounter Last Filed Vital Signs Vital Sign Reading Time Taken Comments Blood Pressure 120/70 08/23/2004 10:45 AM DIRECTOR OF REHABILITATION Pulse - - Temperature 36.7 C (98.1 F) 08/23/2004 10:45 AM DIRECTOR OF REHABILITATION Respiratory Rate - - Oxygen Saturation - - Inhaled Oxygen Concentration - - Weight 86.2 kg (190 lb) 08/23/2004 10:45 AM DIRECTOR OF REHABILITATION Height - - Body Mass Index - - documented in this encounter Plan of Treatment Not on file documented as of this encounter Visit Diagnoses Not on filedocumented in this encounter Care Teams Data Migration Lead Relationship Specialty Start Date End Date [facility], External Provider [address] [place] [address] PCP - General 10/22/11 documented as of this encounter
--- OUTSIDE RECORDS SUMMARY | 2025-04-14 17:22 | XMS_ITS | Clinical Summary ---
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 Gender Identity Not on file Sexual Orientation Not on file Plan of Treatment Health Maintenance Due Date Last Done Comments Cervical Cancer Screening Pa p Smear (Age 30 to 64) Every 3 Years 1981 Annual Physical 02/10/1984 Hepatitis C 1999 DTaP, Tdap and Td Vaccines ( 1 - Tdap) 02/10/2000 Hepatitis B Vaccines (1 of 3 - 19+ 3-dose series) 02/10/2000 HPV Vaccines (1 - 3-dose SCD M series) 02/10/2008 Cervical Cancer Screening Pa p with HPV Testing (Age 30 to 64) Every 5 Years 2011 Cervical Cancer Screening with HPV 2011 Mammogram Screening 2021 COVID-19 Vaccine (2024-2 6 season) 2025 Influenza Adult (#1) 2025 Hepatitis A Vaccines Aged Out No long er eligible based [...]
--- OUTSIDE RECORDS SUMMARY | 2025-04-14 17:22 | XMS_ITS | Encounter Summary ---
Author Organization [facility] Address [address] [place] [address] Care Team Providers Care Diaphragm Builder Name Role Phone Luis, External Provider Primary Care Provider Un available Encounter Details Date Type Department Care Team ([facility] Contact Info) Description 03/31/2004 Outpatient Historical [facility] Internal Medicine [address] [phone] Daniel Vasquez MD [address] [place] [phone] Social History Tobacco Use Types Packs/Day Years Used Date Smoking Tobacco: Never Assessed Comments Unknown Sex and Gender Information Value Date Recorded Sex Assigned at Not on file 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
--- OUTSIDE RECORDS SUMMARY | 2025-04-14 17:22 | XMS_ITS | Encounter Summary ---
Author Organization [facility] Address [address] [place] [address] Care Team Providers Care Gas Distribution And Emergency Clerk Name Role Phone [facility], External Provider Primary Care Provider Un available Encounter Details Date Type Department Care Team (Late st Contact Info) Description 11/27/[address] 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 BARRIE PHONE NUMBER: [phone] WHO CALLED: Patient called. CURRENT ALLERGY LIST: CIPRO CODEINE [facility] NUMBER: [phone] PROBLEMS: back went out again over the [...] Dispensed, status: NEW PRESCRIPTION, 11/27/2005. FINAL ACTION: [email or web address] 11/27/05 at 11:19 am Called pharmacy at 11/27/05 at 11:19 am. Electronically Signed by: Lakisha Mckenzie on Sunday, November 27, 2005 documented in this encounter Plan of Treatment Not on file documented as of this encounter Visit Diagnoses Not on filedocumented in this encounter Care Teams Gas Distribution And Emergency Clerk Relationship Specialty Start Date End Date [facility], External Provider [address] [place] [address] PCP - General 10/22/11 documented as of this encounter
--- OUTSIDE RECORDS SUMMARY | 2025-04-14 17:22 | XMS_ITS | Encounter Summary ---
Author Organization [facility] Address 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
--- OUTSIDE RECORDS SUMMARY | 2025-04-14 17:22 | XMS_ITS | Clinical Summary ---
Author Organization [facility] Address [address] [place] [address] Phone Care Team Providers Care Clinical Science Consultant Name Role Phone Bertram Martinez MD Primary Care Provider [phone] Allergies Active Allergy Reactions Criticality Noted Date [...] Comments Blood Pressure 98/73 06/12/2020 12:01 PM CORK INSULATOR HELPER Pulse 79 06/12/2020 12:01 PM CORK INSULATOR HELPER Temperature 36.2 C (97.2 F) 06/12/2020 10:58 AM CORK INSULATOR HELPER Respiratory Rate 18 06/12/2020 12:01 PM CORK INSULATOR HELPER Oxygen Saturation 100% 06/12/2020 12:01 PM CORK INSULATOR HELPER Inhaled Oxygen Concentration - - Weight 68 kg (150 lb) 06/12/2020 10:58 AM CORK INSULATOR HELPER Height 175.3 cm (5' 9) 06/12/2020 10:58 AM CORK INSULATOR HELPER Body Mass Index 22.15 06/12/2020 10:58 AM CORK INSULATOR HELPER Plan of Treatment Health Maintenance Due Date Last Done Comments Hepatitis C Virus (HCV) Screening 1981 TdaP Immunization 1981 Hepatitis B Immunization (1 of 3 - 19+ 3-dose series) 02/10/2000 Human Papillomavirus (HPV) Immunization (1 - 3-dose SCDM series) 02/10/2008 Influenza Immunization (#1) 02/02/202503/05, 03/20/2018, 05/04/2015, Additional history exists SARS-COV-2 Immunization (2024- season) 2025 Respiratory Syncytial Virus (RSV) Immunization (Adult) (1 [...] Health Maintenance Insurance MEDICAID [place] Care Teams Clinical Science Consultant Relationship Specialty Start Date End Date Bertram [place] [address] PCP - General Internal Medicine 09/09/18
[2025-04-14 17:24] VITALS: BP 138/83; PULSE 91; RESP 16; TEMP 36.8; O2SAT 100
--- NOTE | 2025-04-14 17:57 | ED.FEMALEGU ---
HPI - Female Genitourinary General Chief complaint: Urogenital-Female Stated complaint: Std Test Time Seen by Provider: 04/14/25 17:40 Source: patient and RN notes reviewed Mode of arrival: ambulatory Limitations: no limitations History of Present Illness HPI Narrative: 45-year-old female presents Express Care complaining of vaginal irritation that started yesterday. Patient reports 2 days ago she had unprotective rough sex with her partner. Patient found her partner has had additional partners recently. Patient reports the irritation and is felt externally to her vulva. Patient denies any redness or swelling, discharge, urinary symptoms, fevers, body aches aches, chills, nausea, vomiting, flank pain, abdominal pain, vaginal bleeding, pelvic pain, vaginal itchiness any other of symptoms. Patient would like to be checked for STDs. Related Data Home Medications ?Medication ?Instructions ?Recorded ?Confirmed ?Last Taken ?Type alprazolam 1 mg tablet mg 09/04/24 Unknown History buspirone 15 mg tablet mg 09/04/24 Unknown History duloxetine 60 mg capsule,delayed mg PO 09/04/24 Unknown History release gabapentin 300 mg capsule mg 09/04/24 Unknown History pantoprazole 40 mg tablet,delayed mg PO 09/04/24 Unknown History release tramadol 50 mg tablet mg 09/04/24 Unknown History Allergies Allergy/AdvReac Type Severity Reaction Status Date / Time codeine Allergy Severe DIFFICULTY Verified 12/13/24 18:32 BREATHING cyclobenzaprine Allergy Severe DIFFICULTY Verified 12/13/24 18:32 BREATHING hydrocodone Allergy Severe Rash Verified 12/13/24 18:32 meperidine Allergy Severe Difficulty Verified 12/13/24 18:32 Breathing morphine Allergy Severe BRADYCARDIA Verified 12/13/24 18:32 Sulfa (Sulfonamide Allergy Severe DIFFICULTY Verified 12/13/24 18:32 Antibiotics) BREATHING carisoprodol (From Soma) Allergy Unknown Verified 12/13/24 18:32 methadone Allergy Unknown Verified 12/13/24 18:32 nitrofurantoin (From Allergy Unknown Verified 12/13/24 18:32 Macrobid) Quinolones Allergy Unknown Verified 12/13/24 18:32 sulfamethoxazole (From Allergy Unknown Verified 12/13/24 18:32 Septra) trimethoprim Allergy Unknown Verified 12/13/24 18:32 ciprofloxacin AdvReac Intermediate MUSCLE Verified 07/12/25 18:32 CRAMPS, HALLUCINATIONS Review of Systems Review of Systems: CONSTITUTIONAL: Denies fever, body aches, chills, or sweats. EYES: Denies visual changes, redness, or discharge. ENT: Denies rhinorrhea, congestion, sore throat, or otalgia. CARDIOVASCULAR: Denies chest pain, palpitations, or edema. RESPIRATORY: Denies cough or dyspnea. GASTROINTESTINAL: Denies abdominal pain, nausea, vomiting, or diarrhea. GENITOURINARY: Denies dysuria, vaginal bleeding, vaginal discharge, pelvic pain, frequency, hesitancy, vaginal itchiness, or hematuria. Positive for vaginal irritation SKIN: Denies rash or itching. MUSCULOSKELETAL: Denies back pain, flank pain, joint pain, or myalgia. NEUROLOGIC: Denies headache, numbness, or weakness. PSYCHIATRIC: Denies anxiety or depression. All other systems reviewed are negative, except as documented in HPI. [facility] Past Medical History Medical History Martha-Danlos syndrome Depression Surgical History Surgical History History of augmentation of both breasts Social History Social History Social History: Patient denies alcohol intake, uses marijuana for medical treatment, and does smoke. Daughter works at [employer] Alcohol intake: current Gender identity (if verbalized by the patient): Female Comments At the time of my signature, I reviewed and agree with the nursing past medical, surgical, social, and family history. There is no relevant family history pertinent to the patient complaint. Exam Narrative: GENERAL: This is a well-nourished, well-developed adult, in no apparent distress. They are non ill-appearing, nontoxic appearing. HEAD: normocephalic, atraumatic. EYES: Sclera clear/white. Conjunctiva normal. Vision is grossly intact. Extraocular movements intact EARS: External ears normal,Hearing grossly intact. NOSE: External nose normal THROAT: Mucous membranes moist, NECK: Neck supple, CARDIOVASCULAR: Regular rate and rhythm RESPIRATORY: Respiratory rate normal, respiratory effort nonlabored, no respiratory distress GASTROINTESTINAL: Abdomen soft, non-tender, nondistended. GENITOURINARY: Patient declined pelvic exam. SKIN: warm, Dry, intact with no suspicious lesions or rash, good texture and turgor. NEURO: awake, alert, and oriented to person, place and time. There were no obvious focal neurologic abnormalities. EXTREMITIES: No joint tenderness, effusion, or edema noted. BACK: Nontender without deformity. Course Course Emergency Course: Portions of this record may have been created with voice recognition software Level of Care: Express Care Visit Vital Signs Vital signs: Vital Signs Temperature 98.3 F 04/14/25 17:24 Pulse Rate 91 04/14/25 17:24 Respiratory Rate 16 04/14/25 17:24 Blood Pressure 138/83 04/14/25 17:24 Pulse Oximetry 100 04/14/25 17:24 Oxygen Delivery Room Air 04/14/25 17:24 Temperature 98.3 F 04/14/25 17:24 Pulse Rate 91 04/14/25 17:24 Respiratory Rate 16 04/14/25 17:24 Blood Pressure 138/83 04/14/25 17:24 Pulse Oximetry 100 04/14/25 17:24 Oxygen Delivery Room Air 04/14/25 17:24 Reviewed MDM - Female Genitourinary MDM Narrative Medical decision making narrative: Patient likely be tested for STDs. Patient does report irritation but reports that externally, she denies any redness or swelling. Pelvic exam is deferred. Patient denies any urinary symptoms. Patient was like to self swab and have a urine test for STDs. Swabs of bacterial vaginosis in general culture pending. Urine chlamydia, gonorrhea, Trichomonas are pending. Will await any treatment prior to over culture results. Symptoms could likely be related to irritation from sexual intercourse. Discussed physical exam findings. Advised supportive measures and signs/symptoms to go to the ER. Pt is appropriate for outpt treatment and f/u. Differential Diagnosis Differential diagnosis: Likely bacterial vaginosis, vaginitis and other (Vaginal irritation, vaginal yeast infection, vaginitis, STD) Critical Care Time Critical Care Time Critical Care Time: No Discharge Plan Discharge Clinical Impression: Vaginal irritation, Concern about STD in female without diagnosis Patient Disposition: Home Condition: Stable Instructions: Sexually Transmitted Diseases (ED), Safe Sex Practices (ED) Additional Instructions: ?Your urine sample has been sent off to test for gonorrhea, chlamydia, and trichomonas infections. A swab for bacterial vaginosis any genital culture was also sent off. ?These tests can take up to 1-3 days to come back. You Will be notified the results once they have resulted. Please remain abstinent until you know your results or have completed full treatment for an STD. Follow-up with PCP or your OBGYN in 3-5 days. If your symptoms worsen, you developed fever, abdominal pain, nausea, vomiting, vaginal bleeding, pelvic pain or any other concerns please go to the ER immediately. Patient Language: Macedonian Prescriptions: No Action alprazolam 1 mg tablet pantoprazole 40 mg tablet,delayed release (DR/EC) PO gabapentin 300 mg capsule buspirone 15 mg tablet duloxetine 60 mg capsule,delayed release(DR/EC) PO tramadol 50 mg tablet triamcinolone acetonide 0.1 % cream 1 applic topical BID Qty: 453.6 0RF omeprazole magnesium [Prilosec OTC] 20 mg tablet,delayed release (DR/EC) 20 mg PO BID Qty: 60 0RF Follow-up/Referrals: Harms,Bertram Sarah M.D. [Primary Care Provider] Time of Disposition: 17:55
[2025-04-15 20:21] LABS: Trichomonas Vag PCR NOT DETECTED (NOT DETECTE)
== END 2025-04-14 18:04 | disposition home or self-care (01) ==
PROVIDERS: PCP Family Medicine
DX: R10.20 Pelvic and perineal pain unspecified side (principal); Z20.2 Contact with and (suspected) exposure to infections with a predominantly sexual mode of transmission; Q79.60 Ehlers-Danlos syndrome, unspecified; F32.A Depression, unspecified; F17.200 Nicotine dependence, unspecified, uncomplicated; F12.90 Cannabis use, unspecified, uncomplicated
CPT/HCPCS: 87070; 87491; 87591; 87661; 87798; 99213; G0463

== ENCOUNTER 2025-05-15 15:25 | Emergency (ER) | payer MEDICARE, SELFPAY ==
[2025-05-15 15:30] VITALS: BP 125/64; PULSE 70; RESP 18; TEMP 36.1; O2SAT 100
--- NOTE | 2025-05-15 16:11 | ED_ITS ---
HPI - Animal Bite General Chief Complaint: Animal Bite Stated Complaint: ferral cat Time Seen by Provider: 05/15/25 15:50 Source: patient and RN notes reviewed Mode of arrival: ambulatory Limitations: no limitations History of Present Illness HPI narrative: 45-year-old female presents Express Care complaining cat scratches and bites that occurred yesterday. 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 Patient says the cath rabies are up-to-date. Patient says her tetanus is up-to-date. Patient wash the wound immediately with soapy water and apply antibiotic ointment. Today she says her left middle finger is hot to touch, and swollen and painful. Patient denies any drainage. She denies any other injuries. Patient denies any other symptoms. Related Data Home Medications ?Medication ?Instructions ?Recorded ?Confirmed ?Last Taken ?Type alprazolam 1 mg tablet mg 09/04/24 Unknown History buspirone 15 mg tablet mg 09/04/24 Unknown History duloxetine 60 mg capsule,delayed mg PO 09/04/24 Unkno wn History release gabapentin 300 mg capsule mg 09/04/24 Unknown History pantoprazole 40 mg tablet,delayed mg PO 09/04/24 Unkn own History release tramadol 50 mg tablet mg 09/04/24 Unknown History Allergies Allergy/AdvReac Type Severity Reaction Status Date / Time codeine Allergy Severe DIFFICULTY Verified 05/15/25 15:31 BREATHING cyclobenzaprine Allergy Severe DIFFICULTY Verified 05/15/25 15:31 BREATHING hydrocodone Allergy Severe Rash Verified 05/15/25 15:31 meperidine Allergy Severe Difficulty Verified 05/15/25 15:31 Breathing morphine Allergy Severe BRADYCARDIA Verified 05/15/25 15:31 Sulfa (Sulfonamide Allergy Severe DIFFICULTY Verified 05/15/25 15:31 Antibiotics) BREATHING carisoprodol (From Soma) Allergy Unknown Verified 05/15/25 15:31 methadone Allergy Unknown Verified 05/15/25 15:31 nitrofurantoin (From Allergy Unknown Verified 05/15/25 15:31 Macrobid) Quinolones Allergy Unknown Verified 05/15/25 15:31 sulfamethoxazole (From Allergy Unknown Verified 05/15/25 15:31 Septra) trimethoprim Allergy Unknown Verified 05/15/25 15:31 ciprofloxacin AdvReac Intermediate MUSCLE Verified 05/15/25 15:31 CRAMPS, HALLUCINATIONS Review of Systems Review of Systems: CONSTITUTIONAL: Denies fever, chills, or sweats. EYES: Denies visual changes, redness, or discharge. ENT: Denies rhinorrhea, congestion, sore throat, or otalgia. CARDIOVASCULAR: Denies chest pain, palpitations, or edema. RESPIRATORY: Denies cough or dyspnea. GASTROINTESTINAL: Denies abdominal pain, nausea, vomiting, or diarrhea. GENITOURINARY: Denies dysuria or hematuria. SKIN: Denies rash or itching. Positive for bite wound, redness, and swelling. MUSCULOSKELETAL: Denies back pain, joint pain, or myalgia. NEUROLOGIC: Denies headache, numbness, or weakness. PSYCHIATRIC: Denies anxiety or depression. All other systems reviewed are negative, except as documented in HPI. FOR[facility]LY [facility] Past Medical History Medical History Martha-Danlos syndrome Depression Surgical History Surgical History History of augmentation of both breasts Social History Social History Social History: Patient denies alcohol intake, uses marijuana for medical treatment, and does smoke. Daughter works at [employer] Smoking status: Current every day smoker Alcohol intake: current Gender identity (if verbalized by the patient): Female Comments At the time of my signature, I reviewed and agree with the nursing past medical, surgical, social, and family history. There is no relevant family history pertinent to the patient complaint. Exam Narrative: GENERAL: This is a well-nourished, well-developed adult, in no apparent distress. They are non ill-appearing, nontoxic appearing. HEAD: normocephalic, atraumatic. EYES: Sclera clear/white. Conjunctiva normal. Vision is grossly intact. Extraocular movements intact EARS: External ears normal,Hearing grossly intact. NOSE: External nose normal. THROAT: Mucous membranes moist, NECK: Neck supple, CARDIOVASCULAR: Regular rate and rhythm RESPIRATORY: Respiratory rate normal, respiratory effort nonlabored, no respiratory distress SKIN: warm, Dry, intact with no suspicious lesions or rash, good texture and turgor. NEURO: awake, alert, and oriented to person, place and time. There were no obvious focal neurologic abnormalities. EXTREMITIES: Bilateral Hands: Multiple scratches the patient's dorsal surface of her hands it has mild scratches scattered throughout her fingers. No area of fluctuance or induration, no surrounding erythema or swelling to the scratches. There is a small puncture wound to the palmar proximal left middle finger. Left middle finger is swollen between the PIP and MCP joint, mildly tender and warm to touch. No area of fluctuance, no induration. Normal range of motion. Capillary refill less than 2 seconds. Sensation intact. Neurovascular status intact distally. No, ulnar and median nerve distribution intact. BACK: Nontender without deformity. Course Course Level of Care: Express Care Visit Vital Signs Vital signs: Vital Signs Temperature 97 F L 05/15/25 15:30 Pulse Rate 70 05/15/25 15:30 Respiratory Rate 18 05/15/25 15:30 Blood Pressure 125/64 05/15/25 15:30 Pulse Oximetry 100 05/15/25 15:30 Oxygen Delivery Room Air 05/15/25 15:30 Temperature 97 F L 05/15/25 15:30 Pulse Rate 70 05/15/25 15:30 Respiratory Rate 18 05/15/25 15:30 Blood Pressure 125/64 05/15/25 15:30 Pulse Oximetry 100 05/15/25 15:30 Oxygen Delivery Room Air 05/15/25 15:30 MDM MDM Narrative Medical decision making narrative: Appears patient has infected puncture wound to her left middle finger. Scratches do not appear infected. Will treat with Augmentin. Patient tetanus up-to-date. Cat rabies are up-to-date. Discussed supportive care, strict ER precautions discussed with patient in for signs of worsening infection such as worsening redness, swelling, pain, fevers, body aches, chills, or any serious concerns. Discussed physical exam findings. Advised supportive measures and signs/symptoms to go to the ER. Pt is appropriate for outpt treatment and f/u. Differential Diagnosis Differential Diagnosis: Animal bite, puncture wound, cat scratch fever fever, affected wound, cellulitis, abscess Critical Care Time Critical Care Time Critical Care Time: No Discharge Plan Discharge Clinical Impression: Cat scratch Cat bite of hand Qualifiers: Encounter type: initial encounter Laterality: left Qualified Code(s): S61.452A - Open bite of left hand, initial encounter Patient Disposition: Home Condition: Stable Instructions: Antibiotic Form, Animal Bite (ED) Additional Instructions: Wash the wounds daily with mild soap and water. Do not Soak or scrub the wounds. Avoid any peroxide or alcohol to the wounds. May apply antibiotic ointment or Vaseline to the wound twice a day. Keep the wounds dry and covered when you not at home with a Band-Aid. Take the Augmentin as directed. Follow- up with your PCP in 3-5 days for wound recheck. Go to the ER if if you developed worsening redness, swelling, pain, green/yellow drainage, fevers, body aches, chills, or any other serious concerns. Patient Language: Macedonian Prescriptions: New amoxicillin-pot clavulanate 875-125 mg tablet 1 tablet PO Q12H 7 Days Qty: 14 0RF No Action alprazolam 1 mg tablet pantoprazole 40 mg tablet,delayed release (DR/EC) PO gabapentin 300 mg capsule buspirone 15 mg tablet duloxetine 60 mg capsule,delayed release(DR/EC) PO tramadol 50 mg tablet triamcinolone acetonide 0.1 % cream 1 applic topical BID Qty: 453.6 0RF fluconazole 150 mg tablet 150 mg PO Q72H Qty: 2 0RF Rx Instructions: May repeat in 72 hours if symptoms are persisting omeprazole magnesium [Prilosec OTC] 20 mg tablet,delayed release (DR/EC) 20 mg PO BID Qty: 60 0RF Follow-up/Referrals: Harms,Bertram Sarah M.D. [Primary Care Provider] Time of Disposition: 16:06
== END 2025-05-15 16:12 | disposition home or self-care (01) ==
PROVIDERS: PCP Family Medicine
DX: S61.233A Puncture wound without foreign body of left middle finger without damage to nail, initial encounter (principal); W55.01XA Bitten by cat, initial encounter; S60.512A Abrasion of left hand, initial encounter; S60.511A Abrasion of right hand, initial encounter; Q79.60 Ehlers-Danlos syndrome, unspecified; F32.A Depression, unspecified; F17.200 Nicotine dependence, unspecified, uncomplicated; F12.90 Cannabis use, unspecified, uncomplicated
CPT/HCPCS: 99213; G0463